=== PATIENT | male | born 1935 | race Caucasian/White ===

== ENCOUNTER 2023-06-02 06:23 | Day surgery (SDC) | payer MEDICARE, OTHER, SELFPAY ==
[2023-06-02] VITALS (15 sets, daily range): BP systolic 97–130; BP diastolic 51–80; BMI 25.1
== END 2023-06-02 12:55 | disposition home or self-care (01) ==
LOC: GI 06:23
PROVIDERS: ATTENDING PHYSICIAN Internal Medicine Critical Care Medicine
DX: R91.8 Other nonspecific abnormal finding of lung field (principal); R59.0 Localized enlarged lymph nodes; J98.4 Other disorders of lung
CPT/HCPCS: 31629; 31624; 31645; 31623; 31627; 31654; 88172; 88173; 88305; 71045; 76000; 87015; 87070; 87102; 87116; 87147; 87186; 87205; 88112; 88333; C1887

== ENCOUNTER 2023-06-13 14:45 | Outpatient (RCR) | payer MEDICARE, OTHER, SELFPAY | END 2023-06-28 10:54 | disposition home or self-care (01) | LOC: PURB 14:45 | PROVIDERS: ATTENDING PHYSICIAN Internal Medicine; FAMILY PHYSICIAN Family Medicine | DX: J44.9 Chronic obstructive pulmonary disease, unspecified (principal) | CPT/HCPCS: 94625 ==

== ENCOUNTER → 2023-07-10 07:57 | Outpatient (REF) | payer MEDICARE, OTHER, SELFPAY ==
[2023-07-10 10:00] LABS: % Basophils 0.2 % (0-2); % Eosinophils 0.2 % (0-6); % Immature Granulocytes 2.4 % (0-0.5); % Lymphocytes 54.9 % (20.5-51.1); % Monocytes 3.1 % (1.7-9.3); % Neutrophils 39.2 % (42.2-75.2); Absolute Basophils 0.1 10^3/uL (0-0.2); Absolute Eosinophils 0.1 10^3/uL (0-0.7); Absolute Immature Granulocytes 0.7 10^3/uL (0-0.05); Absolute Lymphocytes 16.8 10^3/uL (1.2-3.4); Absolute Monocytes 0.9 10^3/uL (0.1-0.6); Hematocrit 48.9 % (39.0-52.0); Hemoglobin 15.4 g/dL (13.0-18.0); Mean Corp Hgb Conc. 31.5 g/dL (33.0-37.0); Mean Corpuscular Hgb 28.3 pg (27.0-31.0); Mean Corpuscular Volume 89.9 fL (80.0-94.0); Mean Platelet Volume 10.1 fL (7.4-10.4); Nucleated Red Blood Cells % 0 % (-); Platelet Count 371 10^3/uL (130-400); Red Blood Cell Count 5.44 10^6/uL (4.70-6.10); Red Cell Dist. Width 15.4 % (11.5-14.5); White Blood Cell Count 30.5 10^3/uL (4.8-10.8)
[2023-07-10 10:19] LABS: ALT (SGPT) 46 U/L (0-50); AST (SGOT) 27 U/L (17-59); Albumin 3.7 g/dl (3.5-5.0); Alkaline Phosphatase 80 U/L (38-126); Blood Urea Nitrogen 44 mg/dl (9-20); Calcium 9.4 mg/dl (8.4-10.2); Carbon Dioxide 29 mmol/L (22-30); Chloride 108 mmol/L (98-107); Glucose 119 mg/dl (70-99); HDL Cholesterol 27 mg/dl; LDL Cholesterol, Calculated 54 mg/dl; Magnesium 2.5 mg/dl (1.6-2.3); Potassium 3.9 mmol/L (3.5-5.1); Sodium 146 mmol/L (135-145); Total Bilirubin 0.9 mg/dl (0.2-1.3); Total Cholesterol 98 mg/dl (50-199); Total Protein 5.8 g/dl (6.3-8.2); Triglyceride 85 mg/dl (10-149); Very Low Density Lipoprotein 17 mg/dl (0-30); eGFR > 60.00
[2023-07-10 10:25] LABS: NT-proBNP 5040 pg/ml
== END ==
LOC: HWLAB 07:57
PROVIDERS: ATTENDING PHYSICIAN Nurse Practitioner Adult Health; FAMILY PHYSICIAN Family Medicine; REFERRING PHYSICIAN Internal Medicine Cardiovascular Disease
DX: J15.211 Pneumonia due to Methicillin susceptible Staphylococcus aureus (principal); R05.1 Acute cough; R13.12 Dysphagia, oropharyngeal phase; E85.82 Wild-type transthyretin-related (ATTR) amyloidosis; I42.5 Other restrictive cardiomyopathy; I50.32 Chronic diastolic (congestive) heart failure; I25.10 Atherosclerotic heart disease of native coronary artery without angina pectoris; I44.2 Atrioventricular block, complete
CPT/HCPCS: 36415; 71046; 80053; 80061; 83735; 83880; 85025

== ENCOUNTER → 2023-07-11 08:02 | Outpatient (REF) | payer MEDICARE, OTHER, SELFPAY | LOC: RAD 08:02 | PROVIDERS: ATTENDING PHYSICIAN Nurse Practitioner Adult Health; FAMILY PHYSICIAN Family Medicine | DX: J15.211 Pneumonia due to Methicillin susceptible Staphylococcus aureus (principal); R05.1 Acute cough; R13.12 Dysphagia, oropharyngeal phase | CPT/HCPCS: 74230; 92611 ==

== ENCOUNTER → 2023-07-14 09:05 | Outpatient (REF) | payer MEDICARE, OTHER, SELFPAY | LOC: REG 09:05 | PROVIDERS: ATTENDING PHYSICIAN Nurse Practitioner Adult Health; FAMILY PHYSICIAN Family Medicine | DX: J15.211 Pneumonia due to Methicillin susceptible Staphylococcus aureus (principal); R05.1 Acute cough | CPT/HCPCS: 87070; 87077; 87186; 87205 ==

== ENCOUNTER → 2023-07-25 07:32 | Outpatient (REF) | payer MEDICARE, OTHER, SELFPAY ==
[2023-07-25 10:08] LABS: % Basophils 0.3 % (0-2); % Eosinophils 1.3 % (0-6); % Immature Granulocytes 1.1 % (0-0.5); % Lymphocytes 50.6 % (20.5-51.1); % Monocytes 5.1 % (1.7-9.3); % Neutrophils 41.6 % (42.2-75.2); Absolute Basophils 0.1 10^3/uL (0-0.2); Absolute Eosinophils 0.2 10^3/uL (0-0.7); Absolute Immature Granulocytes 0.2 10^3/uL (0-0.05); Absolute Lymphocytes 9.5 10^3/uL (1.2-3.4); Absolute Neutrophils 7.9 10^3/uL (1.4-6.5); Hematocrit 46.8 % (39.0-52.0); Hemoglobin 14.8 g/dL (13.0-18.0); Mean Corp Hgb Conc. 31.6 g/dL (33.0-37.0); Mean Corpuscular Hgb 28.5 pg (27.0-31.0); Mean Corpuscular Volume 90.2 fL (80.0-94.0); Mean Platelet Volume 10.9 fL (7.4-10.4); Nucleated Red Blood Cells % 0 % (-); Platelet Count 299 10^3/uL (130-400); Red Blood Cell Count 5.19 10^6/uL (4.70-6.10); Red Cell Dist. Width 15.8 % (11.5-14.5); White Blood Cell Count 18.9 10^3/uL (4.8-10.8)
[2023-07-25 10:24] LABS: ALT (SGPT) 29 U/L (0-50); AST (SGOT) 31 U/L (17-59); Albumin 3.6 g/dl (3.5-5.0); Alkaline Phosphatase 87 U/L (38-126); Blood Urea Nitrogen 31 mg/dl (9-20); Carbon Dioxide 26 mmol/L (22-30); Chloride 110 mmol/L (98-107); Glucose 98 mg/dl (70-99); Magnesium 2.3 mg/dl (1.6-2.3); Potassium 4.4 mmol/L (3.5-5.1); Sodium 140 mmol/L (135-145); Total Bilirubin 1.3 mg/dl (0.2-1.3); Total Protein 5.8 g/dl (6.3-8.2); eGFR > 60.00
[2023-07-25 10:49] LABS: NT-proBNP 2880 pg/ml
== END ==
LOC: HWLAB 07:32
PROVIDERS: ATTENDING PHYSICIAN Internal Medicine Cardiovascular Disease; FAMILY PHYSICIAN Family Medicine
DX: I48.0 Paroxysmal atrial fibrillation (principal); I50.33 Acute on chronic diastolic (congestive) heart failure; I44.2 Atrioventricular block, complete; I49.8 Other specified cardiac arrhythmias; I10 Essential (primary) hypertension
CPT/HCPCS: 36415; 80053; 83735; 83880; 85025

== ENCOUNTER → 2023-08-04 08:01 | Outpatient (REF) | payer MEDICARE, OTHER, SELFPAY | LOC: HWRAD 08:01 | PROVIDERS: ATTENDING PHYSICIAN Nurse Practitioner Adult Health; FAMILY PHYSICIAN Family Medicine | DX: J15.211 Pneumonia due to Methicillin susceptible Staphylococcus aureus (principal) | CPT/HCPCS: 71250 ==

== ENCOUNTER → 2023-08-22 12:09 | Outpatient (REF) | payer MEDICARE, OTHER, SELFPAY | LOC: HWRAD 12:09 | PROVIDERS: ATTENDING PHYSICIAN Physician Assistant; FAMILY PHYSICIAN Family Medicine | DX: J15.211 Pneumonia due to Methicillin susceptible Staphylococcus aureus (principal) | CPT/HCPCS: 71046 ==

== ENCOUNTER → 2023-09-04 08:21 | Outpatient (REF) | payer MEDICARE, OTHER, SELFPAY | LOC: HWLAB 08:21 | PROVIDERS: ATTENDING PHYSICIAN Internal Medicine; FAMILY PHYSICIAN Family Medicine | DX: J15.211 Pneumonia due to Methicillin susceptible Staphylococcus aureus (principal) | CPT/HCPCS: 87070; 87077; 87186; 87205 ==

== ENCOUNTER 2023-09-06 06:34 | Day surgery (SDC) | payer MEDICARE, OTHER, SELFPAY ==
[2023-09-06] MEDS: ELIQUIS 2.5 MG PO (09:20)
== END 2023-09-06 09:45 | disposition home or self-care (01) ==
LOC: CATH 06:34
PROVIDERS: ATTENDING PHYSICIAN Internal Medicine; FAMILY PHYSICIAN Family Medicine; OTHER PHYSICIAN Internal Medicine Cardiovascular Disease
DX: I48.91 Unspecified atrial fibrillation (principal); I48.92 Unspecified atrial flutter; I08.1 Rheumatic disorders of both mitral and tricuspid valves; I11.0 Hypertensive heart disease with heart failure; I50.42 Chronic combined systolic (congestive) and diastolic (congestive) heart failure; R06.09 Other forms of dyspnea; J44.9 Chronic obstructive pulmonary disease, unspecified; Z85.118 Personal history of other malignant neoplasm of bronchus and lung; Z87.891 Personal history of nicotine dependence; Z79.82 Long term (current) use of aspirin; Z79.01 Long term (current) use of anticoagulants
CPT/HCPCS: 93312; 93320; 93325; 92960; 93005

== ENCOUNTER → 2023-09-07 | Outpatient (REF) | payer MEDICARE, OTHER, SELFPAY | LOC: DHSLP | PROVIDERS: ATTENDING PHYSICIAN Internal Medicine; FAMILY PHYSICIAN Family Medicine | DX: G47.33 Obstructive sleep apnea (adult) (pediatric) (principal); R09.02 Hypoxemia | CPT/HCPCS: 95800 ==

== ENCOUNTER → 2023-09-22 09:01 | Outpatient (REF) | payer MEDICARE, OTHER, SELFPAY ==
[2023-09-22 10:58] LABS: % Basophils 0.3 % (0-2); % Eosinophils 2.1 % (0-6); % Immature Granulocytes 1.8 % (0-0.5); % Lymphocytes 49.7 % (20.5-51.1); % Monocytes 4.4 % (1.7-9.3); % Neutrophils 41.7 % (42.2-75.2); Absolute Eosinophils 0.3 10^3/uL (0-0.7); Absolute Immature Granulocytes 0.3 10^3/uL (0-0.05); Absolute Lymphocytes 7.2 10^3/uL (1.2-3.4); Absolute Monocytes 0.6 10^3/uL (0.1-0.6); Hematocrit 33.6 % (39.0-52.0); Hemoglobin 10.4 g/dL (13.0-18.0); Mean Corpuscular Hgb 28.6 pg (27.0-31.0); Mean Corpuscular Volume 92.3 fL (80.0-94.0); Mean Platelet Volume 10.7 fL (7.4-10.4); Nucleated Red Blood Cells % 0 % (-); Platelet Count 215 10^3/uL (130-400); Red Blood Cell Count 3.64 10^6/uL (4.70-6.10); White Blood Cell Count 14.5 10^3/uL (4.8-10.8)
[2023-09-22 11:13] LABS: ALT (SGPT) 14 U/L (0-50); AST (SGOT) 30 U/L (17-59); Albumin 3.7 g/dl (3.5-5.0); Alkaline Phosphatase 67 U/L (38-126); Blood Urea Nitrogen 34 mg/dl (9-20); Calcium 9.6 mg/dl (8.4-10.2); Carbon Dioxide 27 mmol/L (22-30); Chloride 106 mmol/L (98-107); Glucose 124 mg/dl (70-99); Magnesium 2.1 mg/dl (1.6-2.3); Potassium 3.9 mmol/L (3.5-5.1); Sodium 142 mmol/L (135-145); Total Bilirubin 1.8 mg/dl (0.2-1.3); Total Protein 5.6 g/dl (6.3-8.2); eGFR > 60.00
[2023-09-22 11:18] LABS: NT-proBNP 1970 pg/ml
== END ==
LOC: HWLAB 09:01
PROVIDERS: ATTENDING PHYSICIAN Internal Medicine Cardiovascular Disease; FAMILY PHYSICIAN Family Medicine
DX: I48.92 Unspecified atrial flutter (principal); I48.0 Paroxysmal atrial fibrillation; I25.10 Atherosclerotic heart disease of native coronary artery without angina pectoris; Z98.61 Coronary angioplasty status; I10 Essential (primary) hypertension
CPT/HCPCS: 36415; 80053; 83735; 83880; 85025

== ENCOUNTER 2023-09-24 04:27 | Inpatient (IN) | payer MEDICARE, OTHER, SELFPAY ==
[2023-09-23 23:42] VITALS: BP 115/65; BMI 24.6
[2023-09-23 23:47] VITALS: BP 115/65
--- NOTE | 2023-09-23 23:58 | ED.GENMED ---
History of Present Illness
General
Chief Complaint: Musculo-Skeletal Complaint
Source: patient
Exam Limitations: none
Time Seen by Provider: 09/23/23 23:44
Travel History
Have you had any contact with someone who has COVID-19?: No
Do you have any symptoms of coronavirus? Fever > 100 degrees, chills, cough, shortness of breath, sore throat, loss of taste or smell, muscle aches, or headache?: No
History of Present Illness
History of Present Illness:
This is a 87 year old male that is brought in by ambulance with c/o right hip pain. Patient states that he fell on Monday 2 weeks ago. States that he went to 2 days after the fall and then on Monday that week he went to the PCP. States that he
was told to go to [facility] which he did. States that he was told that they were no sure if his hip was broken. Patient tonight was unable to get Out of his chair. States that he has been trying to walk with pain. States that he is on Eliquis and he
does have some SOB and dizziness. Denies any fever, chills, chest pain, abd pain, nausea, vomiting, diarrhea, headahe, urinary burning.
Past History
Past History
ED Past Medical History: Arrthythmia (afib), CAD, Cancer (lung, Skin Cancer, CLL, ), COPD, HTN, Hypercholesterolemia and Other (BPH, Colitis, GI bleeding. Back and neck pain, PNA, Diverticulitis, IBS, Renal calulus, )
ED Past Surgical History: Cardiac (Stent, ablation 01/29/19 at [facility], pacemaker), Cholecystectomy, Orthopedic (Trigger finger, Right carpal tunnel, ) and Other (!/3 of R lung removed for CA, Cataracts. Right hernia repair, )
Social History
Tobacco: Former smoker
Alcohol: Occasional
Personal:
Living: with family
Family History
Family History: Other (Noncontributory)
Review of Systems
Review of Systems
All Other Systems: ROS reviewed and negative except as documented in HPI and ROS
Constitutional: Reports no symptoms; Denies fever or chills
EENT: Reports no symptoms
Respiratory: Reports trouble breathing; Denies cough
Cardiac: Reports no symptoms; Denies chest pain
ABD/GI: Denies abdominal pain, nausea, vomiting or diarrhea
: Reports no symptoms; Denies dysuria, frequency or urgency
Musculoskeletal: Reports joint pain (Right hip pain)
Skin: Reports no symptoms
Neurological: Reports dizzy; Denies headache
Psychiatric: Reports no symptoms
Phy Exam
General Physical Exam
General Presentation: no apparent distress
General age: appears stated age
General Skin: warm and dry
General Habitus: elderly
General Mental: alert
General Hydration: appears well hydrated
ENT Exam
ENT Exam: TM's normal, pharynx normal and neck supple
Eye Exam
Eye Exam: EOMI
Cardiovascular Exam
Cardiovascular Exam: regular rate/rhythm and normal peripheral pulses
Pulmonary Exam
Pulmonary Exam: lungs clear, no respiratory distress, no rales, chest non tender, no crackles, no rhonchi, no wheezing and no cough
Gastrointestinal Exam
Gastrointestinal Exam: normal bowel sounds, non tender, soft, no organomegaly, no pulsatile mass and non distended
Musculoskeletal Exam
Musculoskeletal Exam: edema (+2 pitting edema of the feet and lower legs. Limited ROM right leg due to pain. Right hip tenderness with palpation)
Skin Exam
Skin Exam: normal color, warm/dry and other (Contusion of right chest from sternum to right lateral chest. Down the right side hip into buttocks and scrotum, down the right let and foot. )
Psychiatric Exam
Psychiatric Exam: normal mood/affect
Course
Orders/Labs/Results
Orders:
Orders
09/23/23 23:57
Complete Blood Count/With Diff Urgent
Comprehensive Metabolic Panel Urgent
09/24/23 00:00
CT Lower Ext W/o Iv Cont Rt Urgent
Comment: Fall two weeks ago
Reason For Exam: Right hip and pelvic pain
Abnormal Lab Results
09/24/23
00:00
WBC 16.4 H 10^3/uL
(4.8-10.8)
RBC 3.36 L 10^6/uL
(4.70-6.10)
Hgb 9.8 L g/dL
(13.0-18.0)
Hct 29.8 L %
(39.0-52.0)
MCHC 32.9 L g/dL
(33.0-37.0)
RDW 17.9 H %
(11.5-14.5)
Abs Immat Gran (auto) 0.3 H 10^3/uL
(0-0.05)
Absolute Neuts (auto) 7.3 H 10^3/uL
(1.4-6.5)
Absolute Lymphs (auto) 7.7 H 10^3/uL
(1.2-3.4)
Absolute Monos (auto) 0.8 H 10^3/uL
(0.1-0.6)
Immature Gran % 1.5 H %
(0-0.5)
BUN 32 H mg/dl
(9-20)
Glucose 113 H mg/dl
(70-99)
Total Bilirubin 1.7 H mg/dl
(0.2-1.3)
Total Protein 5.5 L g/dl
(6.3-8.2)
09/24/23 00:00
09/24/23 00:00
Leukocytosis (chronic due to CLL), H/H low when compared with prior labs,, Dehydration. Glucose nonfasting. Total abigail slightly elevated. Total protein low.
Vital Signs
Initial and Last Documented VS:
Initial Vital Signs
Temp Pulse Resp BP Pulse Ox
97.6 F 63 18 115/65 95
09/23/23 23:42 09/23/23 23:42 09/23/23 23:42 09/23/23 23:42 09/23/23 23:42
Last Documented Vital Signs
Temp Pulse Resp BP Pulse Ox
97.6 F 63 18 115/65 95
09/23/23 23:42 09/23/23 23:42 09/23/23 23:42 09/23/23 23:42 09/23/23 23:42
MDM/Problems Addressed
Differential Diagnosis Includes:
Right hip or Pelvic fracture.
MDM/Problems Addressed:
This is a 87 year old male that comes in by ambulance with c/o of not being able to get out of his chair tonight. States that he fell about 10 days ago and he has had pain in the right hip. States that he is on Eliquis and has had bruising of the
chest down the right sided to his foot.
Will get labs and CT hip and pelvis.
Back into see patient. Explained that his CT is negative for any fracture but there are large hematomas in the gluteal muscle and the hip. This is causing his pain. Explained that they may discuss with the concrete precast moulder about holding his Eliquis and
that sometimes hematomas are drained. This will be decided by the Doctors while in the hospital. Will admit patient. Hospitalist notified.
Chronic conditions affecting care: CAD and COPD
*Radiology
Radiology exam reviewed: radiology read reviewed (CT [facility]-Moderate subcutaneous hematoma overlying the right greater trochanter measuring 9.3cm in length. Large intramuscular hematoma in the right gluteal muscles measuring 12.4cm in length.
There are enlarged solid appearing right inguinal, External iliac nodes. This raises the question of a ) and all reviewed NAD by ED Provider (CT cont- lymphoproliferative disorder. The alignment is normal. Mild right hip joint osteoarthritis. There
is no acute fracture. Partial visualization of L4, L5 laminectomy. Moderate diverticulosis of the visualized colon. )
*Pulse Oximetry
Patient hypoxic: no
*EKG
Interpreted by ED Provider?: NA
Rate: EKG- N/A
*Flat Knitter Interpretation
Rate: Flat Knitter- N/A
*Critical Care Note
Total Time (30-74mins, 75-104mins- exclusive of procedures): Not Applicable
ED Attending Note
-
Portions of this chart may have been created with voice recognition software.� Occasional wrong word or��sound alike� substitutions may have occurred due to the inherent limitations of voice recognition software.
Discharge Plan
Departure
Patient Disposition: Admit
Date of Disposition: 09/24/23
Time of Disposition: 01:57
Admit to: Med/Surg
Presentation/result/management discussed w/ accepting MD/DO: Hospitalist
Patient with high blood pressure during this ER visit?: No
Condition: Good
Covid-19: Not Applicable
Discharge Problem:
Ambulatory dysfunction, Hematoma right hip and gluteal muscle
Prescriptions:
No Action
tamsulosin 0.4 MG capsule
0.4 mg PO BID
famotidine 40 MG tablet
40 mg PO HS
zolpidem 5 MG tablet
5 mg PO HSPRN PRN (Reason: SLEEP)
Patient Comments:
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
furosemide 20 MG tablet
20 mg PO .2X A WK NEEDED PRN (Reason: edema)
finasteride 5 MG tablet
5 mg PO DAILY
Vyndamax 61 MG capsule
61 mg PO DAILY
multivitamin Tablet
1 tab PO DAILY
albuterol sulfate 2.5 mg /3 mL (0.083 %) Solution For Nebulization
2.5 mg INHALATION Q4H PRN (Reason: SOB)
fluticasone propion-salmeterol [Wixela Inhub] 500-50 mcg/dose Blister With Device
1 inh INHALATION Q12H
Eliquis 2.5 mg Tablet
2.5 mg PO BID
Probiotic 3 billion cell Capsule
3,000 mmu cells PO DAILY
sotalol 80 mg Tablet
40 mg PO BID
fluorouracil 5 % Cream
1 applic TOPICAL DAILY PRN (Reason: skin care)
ipratropium bromide 21 mcg (0.03 %) [place],Non-Aerosol
2 spray INTRANASAL TID
guaifenesin [Mucinex] 600 mg Tablet Extended Release 12hr
600 mg PO BID
Nebulizer Albuter
0.083 ea PO BID
Referrals:
Ochoa Serrano DO [Family Provider] -
Interventions
Interventions:
*Risk Screen - Suicide Last Done: 09/23/23 23:42
*General Assessment Last Done: 09/23/23 23:42
*Neglect/Abuse Screening Last Done: 09/23/23 23:42
ED- Fall Risk Assessment Last Done: 09/23/23 23:42
*ED COVID-19 Vaccine History Last Done: 09/23/23 23:42
ED-Musculoskeletal Assessment Last Done: 09/24/23 00:42
Discharge Date and Time
Print Language: UKRAINIAN
[2023-09-24] VITALS (12 sets, daily range): BP systolic 85–109; BP diastolic 45–77; PULSE 65–112; O2SAT 96; BMI 24.3
[2023-09-24 00:05] LABS: % Basophils 0.2 % (0-2); % Immature Granulocytes 1.5 % (0-0.5); % Lymphocytes 46.6 % (20.5-51.1); % Neutrophils 44.7 % (42.2-75.2); Absolute Eosinophils 0.3 10^3/uL (0-0.7); Absolute Immature Granulocytes 0.3 10^3/uL (0-0.05); Absolute Lymphocytes 7.7 10^3/uL (1.2-3.4); Absolute Monocytes 0.8 10^3/uL (0.1-0.6); Absolute Neutrophils 7.3 10^3/uL (1.4-6.5); Hematocrit 29.8 % (39.0-52.0); Hemoglobin 9.8 g/dL (13.0-18.0); Mean Corp Hgb Conc. 32.9 g/dL (33.0-37.0); Mean Corpuscular Hgb 29.2 pg (27.0-31.0); Mean Corpuscular Volume 88.7 fL (80.0-94.0); Mean Platelet Volume 10.3 fL (7.4-10.4); Nucleated Red Blood Cells % 0.1 % (-); Platelet Count 212 10^3/uL (130-400); Red Blood Cell Count 3.36 10^6/uL (4.70-6.10); Red Cell Dist. Width 17.9 % (11.5-14.5); White Blood Cell Count 16.4 10^3/uL (4.8-10.8)
[2023-09-24 00:21] LABS: ALT (SGPT) 14 U/L (0-50); AST (SGOT) 26 U/L (17-59); Albumin 3.6 g/dl (3.5-5.0); Alkaline Phosphatase 69 U/L (38-126); Blood Urea Nitrogen 32 mg/dl (9-20); Calcium 9.1 mg/dl (8.4-10.2); Carbon Dioxide 26 mmol/L (22-30); Chloride 107 mmol/L (98-107); Estimated Creatinine Clearance 55 ml/min; Glucose 113 mg/dl (70-99); Sodium 139 mmol/L (135-145); Total Bilirubin 1.7 mg/dl (0.2-1.3); Total Protein 5.5 g/dl (6.3-8.2); eGFR > 60.00
--- NOTE | 2023-09-24 01:07 | EDRN ---
Updated patient and family on plan for patient to stay regardless of CT result since he is having an issue ambulating, patient and family understand and agree with plan, however informed them once CT report back JOSE Evans will come in and speak
with patient, patient provided with water and medication list updated.
[2023-09-24] MEDS: MORPHINE SULFATE 4 MG IV (02:15)
--- NOTE | 2023-09-24 02:54 | HPS.HSE ---
Family Physician
-
Family Physician: Ochoa Serrano
Chief Complaint
-
RLE Pain / Swelling, Ambulatory Dysfunction
History of Present Illness
Patient is an 87y M with PMH significant for hypertension, CLL, paroxysmal A-Fib and cardiac amyloidosis who presents to ED complaining of progressive RLE pain, swelling and bruising. Patient states that he initially suffered a fall on 09/12/23.
He was running to try and catch a cart that had escaped him when he fell, landing on his R hip. He was able to get up only with assistance. He was seen at Urgent Care that day and has been seen by Joyce Quiroz thereafter. X-rays at both failed
to show any fracture. Patient had significant expected bruising and swelling and discomfort following the fall as he is maintained on chronic anticoagulation with Eliquis. Unfortunately, his symptoms have continued to increase despite significant
time since his injury. He had had worsening pain and swelling with ecchymoses now extending into the R foot. He has had increasing difficulty walking due to pain and this evening was completely unable to get up from a seated position.
He presented to the ED for further evaluation.
Patient notes that he has been maintained on Eliquis 2.5mg BID 'for my heart' for many years. About 2 weeks ago (09/06/23) he underwent DC cardioversion for A-Fib. Following that procedure he was advised to increase his Eliquis to 5mg BID.
He has also recently been on antibiotics for a chronic / unspecified lung infection. He cannot recall the name of the abx, but he completed a 14 day course yesterday.
Medical History
Past Medical History
Past Medical History: Reports Other
Additional Past Medical History:
Cardiac Amyloidosis
Paroxysmal Atrial Fibrillation
ASCVD
Chronic HFpEF
Hypertension
CLL
Prostate Cancer
Lung Cancer
BPH
Past Surgical History: Reports Other
Additional Past Surgical History:
Right Upper Lobectomy
Prostatectomy
PTCA with Stent
PVI Ablation
DCCV
PPM Placement
Hernia Repair (x 2)
Cholecystectomy
Social History
Tobacco: Former Smoker (Quit smoking 30 years ago. Approx 20 pack years total use.)
Alcohol: Occasional
Drug: None
Family History
Family History: Not pertinent
Allergies / Home Medications
Allergies reflects when Allergies were last updated in [facility].
Home Medications with original date entered in [facility]
Allergy/Medication List:
Allergies
Allergy/AdvReac Type Severity Reaction Status Date / Time
No Known Allergies Allergy Verified 09/23/23 23:42
Home Medications
tamsulosin 0.4 mg capsule 0.4 mg PO BID Urinary issue 05/31/12
famotidine 40 mg tablet 40 mg PO HS Gastrointestinal issue 04/15/21
finasteride 5 mg tablet 5 mg PO DAILY Urinary issue 04/15/21
furosemide 20 mg tablet 20 mg PO .2X A WK NEEDED PRN edema 04/15/21
tafamidis 61 mg capsule (Vyndamax) 61 mg PO DAILY Heart disease/condition 04/15/21
zolpidem 5 mg tablet 5 mg PO HSPRN PRN SLEEP 04/15/21
multivitamin 1 tab PO DAILY 07/13/22
albuterol sulfate 2.5 mg/3 mL (0.083 %) solution for nebulization 2.5 mg inhalation Q4H PRN SOB 05/16/23
apixaban 2.5 mg tablet (Eliquis) 5 mg PO BID 05/16/23
fluticasone 500 mcg-salmeterol 50 mcg/dose blistr powdr for inhalation (Wixela Inhub) 1 inh inhalation Q12H 05/16/23
lactobacillus combination no.4 3 billion cell capsule (Probiotic) 3,000 mmu cells PO DAILY 05/16/23
Nebulizer Albuter 0.083 ea PO BID 09/06/23
fluorouracil 5 % topical cream 1 applic topical DAILY PRN skin care 09/06/23
guaifenesin 600 mg tablet, extended release 12 hr (Mucinex) 600 mg PO BID 09/06/23
ipratropium bromide 21 mcg (0.03 %) nasal spray 2 spray intranasal TID 09/06/23
sotalol 80 mg tablet 40 mg PO BID 09/06/23
Review of Systems
-
History Source: Patient
A 12 point ROS was completed and negative except as noted: Yes
Constitutional: Denies Fever, Fatigue or Chills
Respiratory: Reports Cough (chronic / ongoing issue for which he has been followed by Pulmonary); Denies Trouble Breathing
Cardiac: Denies Chest Pain or Palpitations
Abdomen/GI: Denies Abdominal Pain, Nausea, Vomiting or Diarrhea
: Denies Dysuria, Frequency or Flank Pain
Musculoskeletal: Reports Joint Pain, Joint Swelling, Muscle Pain and Edema
Neurological: Denies Dizzy or Headache
Hematologic/Lymphatic: Reports Bruising
Psych: Denies Depression or Anxiety
Physical Exam
Vital Signs
Vital Signs
Temp Pulse Resp BP Pulse Ox
97.6 F 63 18 115/65 95
09/23/23 23:42 09/23/23 23:42 09/23/23 23:42 09/23/23 23:42 09/23/23 23:42
Physical Exam
General: Other (87y M in mild distress due to pain.)
HEENT: Moist mucous membranes and PERRLA
Respiratory: Other (Few scattered rales - otherwise clear.)
Cardiac: S1/S2 and Regular Rhythm; No Murmur
GI: Soft, Non Tender, Non Distended and Normal Bowel Sounds
Musculoskeletal: Other (Firm / tender hematomas over the R buttocks and the R greater troch areas. Significant tenderness of the foot and calf with 3+ pitting edema from the hip to the toes.)
Skin: Other (Ecchymosis over the low back / right buttocks and hip area extending into the RLE circumferentially to the toes. Ecchymoses over the R lateral ribs as well.)
Neuro: AO x 3
Psych: No Anxious or Depressed
Laboratory Results
-
09/24/23 00:00
09/24/23 00:00
Laboratory Results
Total Bilirubin 1.7 mg/dl (0.2-1.3) H 09/24/23 00:00
AST 26 U/L (17-59) 09/24/23 00:00
ALT 14 U/L (0-50) 09/24/23 00:00
Alkaline Phosphatase 69 U/L (38-126) 09/24/23 00:00
Impression/Plan
-
A/P: Patient is an 87y M with PMH significant for PA-Fib, cardiac amyloid, CLL and ASCVD who presents to ED complaining of worsening pain and swelling of the RLE s/p fall 12 days ago.
Right Gluteal Hematoma
Right Greater Trochanter Hematoma
RLE Edema / Ecchymosis
Ambulatory Dysfunction secondary to the above
Fall (09/12/23)
- Admit for further evaluation and treatment.
- Given that his symptoms continue to progress despite fall / trauma occurring 12 days ago - will hold Eliquis for now until improvement is appreciated.
- Elevated extremity.
- Vascular checks given significant degree of swelling and discomfort in the R lower leg / foot.
- Vascular Surgery evaluation for any additional recommendations.
- PT / OT evaluations.
- CT done today shows no evidence of bony involvement / fracture from recent fall.
- ? need for repeat study with benefit of IV contrast to rule out any active / ongoing bleeding.
- Supportive care / pain control.
Acute Blood Loss Anemia secondary to the above
- Hgb today is 9.8 compared to baseline of 14-15.
- Clearly secondary to blood loss / hematoma as noted above.
- Holding Eliquis as stated.
- Follow H&H for improvement.
- Transfusion if needed. Consider iron replacement.
Cardiac Amyloidosis
Paroxysmal Atrial Fibrillation
Chronic HFpEF
ASCVD
- Stable. Continue current CV med regimen with the exception of Eliquis for now.
- s/p recent DC cardioversion (09/12/23) for A-Fib.
- Take Lasix only PRN for edema - current edema clearly due to injury / hematoma and not volume overload.
- Follow I/Os, daily weights, etc.
Chronic Cough
History of Lung Cancer
Atypical Pulmonary Infection (?)
- Followed by local Pulmonary group.
- Just completed 14 day course of abx (? which) and is scheduled for further evaluation with ID in the coming weeks.
- Follow for any fever, dyspnea, worsening symptoms, etc during his acute stay.
- Otherwise, follow-up as an outpatient as already scheduled.
CLL
- Stable. Chronic leukocytosis is not significantly changed.
BPH
- Stable. Continue tamsulosin / finasteride.
- Bladder scan protocol.
DVT Prophylaxis: None acutely given LE injury / active bleeding.
Code Status: Full
[2023-09-24 04:07] LABS: Lactic Acid 0.8 mmol/L (0.7-2.0)
[2023-09-24] MEDS: DILAUDID 0.5 MG IV ×2 (04:48→15:23)
[2023-09-24] MEDS: VENTOLIN NEBULES 2.5 MG INH ×2 (07:16→19:58)
[2023-09-24 07:48] LABS: Hematocrit 28.8 % (39.0-52.0); Mean Corp Hgb Conc. 31.3 g/dL (33.0-37.0); Mean Corpuscular Hgb 28.4 pg (27.0-31.0); Mean Corpuscular Volume 90.9 fL (80.0-94.0); Mean Platelet Volume 10.2 fL (7.4-10.4); Platelet Count 183 10^3/uL (130-400); Red Blood Cell Count 3.17 10^6/uL (4.70-6.10); Red Cell Dist. Width 17.8 % (11.5-14.5); White Blood Cell Count 13.5 10^3/uL (4.8-10.8)
[2023-09-24 08:12] LABS: Blood Urea Nitrogen 30 mg/dl (9-20); Calcium 8.9 mg/dl (8.4-10.2); Carbon Dioxide 28 mmol/L (22-30); Chloride 106 mmol/L (98-107); Estimated Creatinine Clearance 62 ml/min; Glucose 93 mg/dl (70-99); Sodium 138 mmol/L (135-145); eGFR > 60.00
[2023-09-24 08:19] LABS: Iron 53 ug/dl (49-181)
[2023-09-24 08:31] LABS: Percent Saturation 20 % (20-50); Total Iron Binding Capacity 264 ug/dl (261-462)
[2023-09-24] MEDS: BETAPACE 40 MG PO ×2 (08:34→20:45)
[2023-09-24] MEDS: TYLENOL 1000 MG PO ×3 (08:35→21:25)
[2023-09-24] MEDS: FLOMAX 0.400000000000000022 MG PO ×2 (08:35→20:47)
[2023-09-24] MEDS: PROSCAR 5 MG PO (08:35)
[2023-09-24] MEDS: MUCINEX 600 MG PO ×2 (08:36→20:47)
[2023-09-24] MEDS: ELIQUIS 5 MG PO ×2 (08:37→20:47)
--- NOTE | 2023-09-24 08:56 | W.PN.HOSP.TC ---
Addendum entered and electronically signed by Tam Oakley MD 09/24/23 16:51:
Addendum
Discussed with orthopedic doctor on-call Dr. Hayden. Reviewed imaging studies. Would rather not do evacuation unless very uncomfortable. He will see the patient in consult.
Appreciate orthopedic help
End
Addendum entered and electronically signed by Tam Oakley MD 09/24/23 15:32:
Addendum
d/w vascular. No need to repeat images unless hemodynamic instability or significant drop in HGB.
Pt is having less pain now.
Will ask Ortho to look at the films.
End
Original Note:
Today's Communication/Plan
-
.
Assessment / Plan
Assessment / Plan
Physical Exam
General: Other (87y M in mild distress due to pain.)
HEENT: Moist mucous membranes and PERRLA
Respiratory: Other (Few scattered rales - otherwise clear.)
Cardiac: S1/S2 and Regular Rhythm; No Murmur
GI: Soft, Non Tender, Non Distended and Normal Bowel Sounds
Musculoskeletal: Other (Firm / less tender hematomas over the R buttocks and the R greater troch areas. Less tenderness of the foot and calf with 3+ pitting edema from the hip to the toes.)
Skin: Other (Ecchymosis over the low back / right buttocks and hip area extending into the RLE circumferentially to the toes. Ecchymoses over the R lateral ribs as well.)
Neuro: AO x 3, he followed commands.
Psych: No Anxious or Depressed
Patient is an 87y M with PMH significant for PA-Fib, cardiac amyloid, CLL and ASCVD who presents to ED complaining of worsening pain and swelling of the RLE s/p fall 12 days ago.
Right Gluteal Hematoma/ Right Greater Trochanter Hematoma/ RLE Edema / Ecchymosis
Ambulatory Dysfunction secondary to the above
Fall (09/12/23)
- CT done today shows no evidence of bony involvement / fracture from recent fall.
c/w oral Tylenol ATC
and PRN pain medicine
Resume Eliquis due to recent Cardioversion. If drop in hemoglobin, will give blood and monitor.
Acute Blood Loss Anemia secondary to the above
- Hgb today is 9.0 from 9.8
No orthostatic hypotension
Ordered Telemetry monitoring
Will keep monitoring h&H and transfuse as needed
Blood consent is signed.
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
# History of paroxysmal Atrial Fibrillation/atrial flutter
He followed with visitor services assistant of [facility] ( Dr Rice) who is retiring, patient is going to follow-up with our local group.
. Continue current CV med regimen
- s/p recent DC cardioversion (09/12/23) for A-Fib.
- Take Lasix only PRN for edema - current edema clearly due to injury / hematoma and not volume overload.
- Appreciate cardiology input
# He is on scheduled dose of Lasix 20 mg 2- 3 times a week
# History of GI bleeding
At 1 point he was on low-dose Eliquis due to GI bleed in the past but the dose increased after cardioversion
# Chronic hypotension. He is off blood pressure medications. Continue with sotalol
# History of complete heart block. Status post dual-chamber pacemaker.
Chronic Cough
History of Lung Cancer
Atypical Pulmonary Infection, for follow up in OP.
- Followed by local Pulmonary group.
- Just completed 14 day course of abx and is scheduled for further evaluation with ID in the coming weeks.
- No hypoxia.
-, follow-up as an outpatient as already scheduled.
CLL
- Stable. Chronic leukocytosis is not significantly changed.
BPH
- Stable. Continue tamsulosin / finasteride.
- Bladder scan protocol.
DVT Prophylaxis: None acutely given LE injury / active bleeding.
Code Status: Full
Total time spent to see the patient, examine the patient on the floor, review data and lab results, discuss treatment plan with patient, senior biostatistician/group leader, and nursing staff around 55 minutes
Anticipated Discharge: > 48 hours
Subjective/Interval History
-
Date of Service: September 24, 2023
He feels better
less pain in his leg
Objective Data
-
Labs:
Laboratory Results
09/24/23 09/24/23 09/24/23
00:00 07:20 12:00
WBC 16.4 H 13.5 H
Hgb 9.8 L 9.0 L Pending
Hct 29.8 L 28.8 L Pending
Plt Count 212 183
Sodium 139 138
Potassium 4.0 4.0
Chloride 107 106
Carbon Dioxide 26 28
BUN 32 H 30 H
Creatinine 0.9 0.8
Glucose 113 H 93
Calcium 9.1 8.9
Total Bilirubin 1.7 H
AST 26
ALT 14
Alkaline Phosphatase 69
09/24/23
20:00
WBC
Hgb Pending
Hct Pending
Plt Count
Sodium
Potassium
Chloride
Carbon Dioxide
BUN
Creatinine
Glucose
Calcium
Total Bilirubin
AST
ALT
Alkaline Phosphatase
Vital Signs:
Vital Signs
Temp Pulse Resp BP Pulse Ox
97.9 F 65 16 101/59 97
09/24/23 04:33 09/24/23 08:34 09/24/23 07:20 09/24/23 08:34 09/24/23 07:20
I&O
09/23/23 09/24/23 09/25/23
06:59 06:59 06:59
Intake Total 240 / 240
Balance 240 / 240
[2023-09-24] MEDS: ULTRAM 50 MG PO (09:31)
--- NOTE | 2023-09-24 09:55 | W.PN.VS ---
Today's Communication / Plan
-
- would check CTA to rule out any continued active bleed
- consult ortho to eval for possible need to evauate hematoma
- does not appear to have any acute vascular issue
- wrap leg with daina to help with edema
Assessment/Plan
-
hematoma s/p fall
was on blood thinners
non con ct with hematoma
- would check CTA to rule out any continued active bleed
- consult ortho to eval for possible need to evauate hematoma
- does not appear to have any acute vascular issue
- wrap leg with daina to help with edema
Subjective Data
-
Date of Service: September 24, 2023
Asked to eval patient for gluteal hematoma
fell, on blood thinners
pain in right buttock
Objective Data
-
Vital Signs
Temp Pulse Resp BP Pulse Ox
97.6 F 65 18 101/59 97
09/24/23 07:30 09/24/23 08:34 09/24/23 07:30 09/24/23 08:34 09/24/23 07:30
Intake and Output
09/23/23 09/24/23 09/25/23
06:59 06:59 06:59
Intake Total 240 / 240
Balance 240 / 240
Intake:
Oral fluids 240 / 240
Lab Results
09/24/23 07:20
Calcium 8.9 mg/dl (8.4-10.2) 09/24/23 07:20
Total Bilirubin 1.7 mg/dl (0.2-1.3) H 09/24/23 00:00
AST 26 U/L (17-59) 09/24/23 00:00
ALT 14 U/L (0-50) 09/24/23 00:00
Alkaline Phosphatase 69 U/L (38-126) 09/24/23 00:00
Total Protein 5.5 g/dl (6.3-8.2) L 09/24/23 00:00
Albumin 3.6 g/dl (3.5-5.0) 09/24/23 00:00
Physical Exam
-
rrr
ctab
nt,nd,soft
fullness and tenderness to right buttock
2+ edema bilat
ecchymosis to right leg
--- NOTE | 2023-09-24 11:50 | CON.CAR ---
Consultation
Consultation Request
Date/Time Consultation Requested: September 24, 2023
Date/Time Consultation Performed: September 24, 2023
Requesting Provider: Hospitalist
Performing Provider: Peewee
Reason for Consultation: Fall hematoma on anticoagulation
Medical History
-
Chief Complaint: Fall and bruising
History of Present Illness:
87-year-old male with past medical history of hypertension, CLL, paroxysmal A-fib and recent cardioversion September 06, 2023 on Eliquis, cardiac amyloid, who sustained a fall when trying to run and catch a grocery cart. He tells me that he was at [employer]
and trying to put groceries into a grocery cart. The cart started to get away from him and he ran to try and catch up. Unfortunately, he then fell and landed on his right hip. He has had ongoing bruising diffusely from his foot to his right hip.
He has had increased difficulty with walking because of the pain. He presented to the emergency room for further evaluation.
Past Medical History
Past Medical History: Other (Cardiac Amyloidosis Paroxysmal Atrial Fibrillation ASCVD Chronic HFpEF Hypertension CLL Prostate Cancer Lung Cancer BPH)
Past Surgical History: Other (Right Upper Lobectomy Prostatectomy PTCA with Stent PVI Ablation DCCV PPM Placement Hernia Repair (x 2) Cholecystectomy)
Social History
Tobacco: Former Smoker
Alcohol: Occasional
Drug: None
Family History
Family History: Reviewed & Not Pertinent
Allergies / Home Medications
Allergy/AdvReac Type Severity Reaction Status Date / Time
No Known Allergies Allergy Verified 09/23/23 23:42
�Medication �Instructions �Recorded �Confirmed �Type
tamsulosin 0.4 mg capsule 0.4 mg PO BID Urinary issue 05/31/12 09/24/23 History
famotidine 40 mg tablet 40 mg PO HS Gastrointestinal issue 04/15/21 09/24/23 History
finasteride 5 mg tablet 5 mg PO DAILY Urinary issue 04/15/21 09/24/23 History
furosemide 20 mg tablet 20 mg PO .2X A WK NEEDED PRN 04/15/21 09/24/23 History
edema
tafamidis 61 mg capsule (Vyndamax) 61 mg PO DAILY Heart 04/15/21 09/24/23 History
disease/condition
zolpidem 5 mg tablet 5 mg PO HSPRN PRN SLEEP 04/15/21 09/24/23 History
multivitamin 1 tab PO DAILY 07/13/22 09/24/23 History
albuterol sulfate 2.5 mg/3 mL 2.5 mg inhalation Q4H PRN SOB 05/16/23 09/24/23 History
(0.083 %) solution for nebulization
apixaban 2.5 mg tablet (Eliquis) 5 mg PO BID 05/16/23 09/24/23 History
fluticasone 500 mcg-salmeterol 50 1 inh inhalation Q12H 05/16/23 09/24/23 History
mcg/dose blistr powdr for
inhalation (Wixela Inhub)
lactobacillus combination no.4 3 3,000 mmu cells PO DAILY 05/16/23 09/24/23 History
billion cell capsule (Probiotic)
Nebulizer Albuter 0.083 ea PO BID 09/06/23 09/24/23 History
fluorouracil 5 % topical cream 1 applic topical DAILY PRN skin 09/06/23 09/24/23 History
care
guaifenesin 600 mg tablet, 600 mg PO BID 09/06/23 09/24/23 History
extended release 12 hr (Mucinex)
ipratropium bromide 21 mcg (0.03 2 spray intranasal TID 09/06/23 09/24/23 History
%) nasal spray
sotalol 80 mg tablet 40 mg PO BID 09/06/23 09/24/23 History
Review of Systems
-
All other systems: Negative unless noted
Physical Exam
Vital Signs
Temp Pulse Resp BP Pulse Ox
97.6 F 65 18 101/59 97
09/24/23 07:30 09/24/23 08:34 09/24/23 07:30 09/24/23 08:34 09/24/23 07:30
Lab Results
09/24/23 07:20
Physical Exam
General: Well Developed, Well Nourished and No Apparent Distress
HEENT: Normocephalic
Respiratory: Clear and Non Labored Respirations
Cardiac: Regular Rhythm
GI: Soft
Musculoskeletal: No Clubbing, No Cyanosis and No Edema
Skin: Warm, Dry and Other (Large ecchymosis from right hip down to foot)
Neuro: AO x 3
Psych: Calm
Impression / Plan
-
87y M with PMH significant for hypertension, CLL, paroxysmal A-Fib and cardiac amyloidosis who presents to ED complaining of progressive RLE pain, swelling and bruising. Patient states that he initially suffered a fall on 09/12/23. We have been
consulted because of recent cardioversion and Eliquis.
Paroxysmal AF status post mid first cardioversion
Recommend trending CBC; I did discuss with him that given his recent cardioversion he is still within the 30-day window that he is at increased risk of stroke. However, given his significant ecchymosis and hematoma if he were need to hold his
Eliquis because of worsening likely blood loss anemia that this would put him at a slightly increased risk of stroke. He is understanding of this.
-Hold Eliquis if ongoing worsening likely blood loss anemia
-Otherwise continue Eliquis
-Defer to vascular and orthopedic surgery if hematoma needs to be evacuated, if needed then Eliquis would need to be held
-Continue sotalol
Data Reviewed
-
EKG: Tracing Personally Visualized and interpreted (sr)
Medical Tests (Nuc Med, Echo etc): Report Reviewed by me
Labs: Labs Reviewed by me
[2023-09-24 12:33] LABS: Hematocrit 28.9 % (39.0-52.0); Hemoglobin 9.2 g/dL (13.0-18.0)
--- NOTE | 2023-09-24 14:26 | CM ---
Met with pt, his and daughter at bedside
Pt lives with his in independent living at [facility]
Independent, no assist with ADL's at baseline
DME - none
SNF/HH - denies past
Has ride at d/c
PCP - Dr Maxine Serrano
Pharm - [facility]
Pt seen by PT/OT - recommending SNF
Prefers [facility] - referral sent in [facility]
Plan - anticipate transfer to the [facility] when medically stable
[2023-09-24] MEDS: TYLENOL PO (15:21)
--- NOTE | 2023-09-24 15:54 | PTCARENOTE ---
Pt is alert and oriented x3. Complains of pain on the R side of his body due to lots of ecchymosis d/t a fall. Pain medicine administered per MAR with releif. Neurovascular checks all intact. Pt's appetite has been good. Pt is an assist x1 OOB with
the walker. VSS. Family is at the bedside. Call edwards is within reach.
[2023-09-24 19:57] LABS: Hematocrit 30.2 % (39.0-52.0); Hemoglobin 9.7 g/dL (13.0-18.0)
[2023-09-24] MEDS: SENOKOT 17.1999999999999993 MG PO (21:25)
[2023-09-24] MEDS: PEPCID 40 MG PO (21:25)
[2023-09-25] VITALS (7 sets, daily range): BP systolic 96–104; BP diastolic 49–55; PULSE 67–76; BMI 24.0
[2023-09-25] MEDS: ULTRAM 50 MG PO ×2 (02:31→13:14)
[2023-09-25 06:58] LABS: Hematocrit 28.8 % (39.0-52.0); Hemoglobin 9.2 g/dL (13.0-18.0); Mean Corp Hgb Conc. 31.9 g/dL (33.0-37.0); Mean Corpuscular Hgb 29.1 pg (27.0-31.0); Mean Corpuscular Volume 91.1 fL (80.0-94.0); Mean Platelet Volume 10.4 fL (7.4-10.4); Platelet Count 181 10^3/uL (130-400); Red Blood Cell Count 3.16 10^6/uL (4.70-6.10); Red Cell Dist. Width 17.9 % (11.5-14.5); White Blood Cell Count 13.1 10^3/uL (4.8-10.8)
[2023-09-25 07:08] LABS: Blood Urea Nitrogen 29 mg/dl (9-20); Carbon Dioxide 28 mmol/L (22-30); Chloride 106 mmol/L (98-107); Estimated Creatinine Clearance 55 ml/min; Glucose 88 mg/dl (70-99); Potassium 4.5 mmol/L (3.5-5.1); Sodium 138 mmol/L (135-145); eGFR > 60.00
[2023-09-25] MEDS: MUCINEX 600 MG PO ×2 (07:17→20:31)
[2023-09-25] MEDS: BETAPACE 40 MG PO ×2 (07:17→20:31)
[2023-09-25] MEDS: PROSCAR 5 MG PO (07:17)
[2023-09-25] MEDS: ELIQUIS 5 MG PO ×2 (07:17→20:32)
[2023-09-25] MEDS: FLOMAX 0.400000000000000022 MG PO ×2 (07:17→20:31)
[2023-09-25] MEDS: NON-FORMULARY ITEM 61 MG PO (07:18)
[2023-09-25] MEDS: TYLENOL 1000 MG PO ×3 (07:18→20:33)
[2023-09-25] MEDS: VENTOLIN NEBULES 2.5 MG INH ×2 (07:34→20:56)
[2023-09-25] MEDS: VENTOLIN NEBULES INH (07:49)
--- NOTE | 2023-09-25 07:52 | W.PN.UPDATE ---
Update Note
Progress Note Update
Patient seen and examined and chart reviewed. Asked to comment on hematoma evacuation.
Patient reporting some discomfort through right leg with significant swelling and bruising.
RLE
Skin intact, significant ecchymotic staining throughout leg, pitting edema distally
No groin pain with passive ROM right hip, moderate TTP over buttock/lateral trochanteric flare
No palpable knee effusion
Some lateral based ankle/foot TTP
87 yo M on anticoagulation s/p fall with right gluteal hematoma
No indication from my standpoint for hematoma evacuation
Recommend ice, elevation
Will order xray right foot/ankle
Formal consult to follow
--- NOTE | 2023-09-25 09:01 | W.PN.VS ---
Today's Communication / Plan
-
- Trend Hgb, stable at 9.2 today
- Recommend VALE wrap to RLE to control edema
- Consider CTA if concern for continued active bleed
- Appreciate ortho recs, no need for hematoma evacuation at this time
Assessment/Plan
-
87 year old male with right gluteal hematoma following a fall on eliquis
noncon CT with hematoma
- Trend Hgb, stable at 9.2 today
- Recommend VALE wrap to RLE to control edema
- Consider CTA if concern for continued active bleed
- Appreciate ortho recs, no need for hematoma evacuation at this time
Subjective Data
-
Date of Service: September 25, 2023
No acute events overnight. Reports continued pain in right hip, especially with ambulation. Feels slight improvement.
Objective Data
-
Vital Signs
Temp Pulse Resp BP Pulse Ox
98.0 F 85 18 99/49 97
09/25/23 07:35 09/25/23 07:38 09/25/23 07:38 09/25/23 07:35 09/25/23 07:38
Intake and Output
09/24/23 09/25/23 09/26/23
06:59 06:59 06:59
Intake Total 240 / 240 1620 / 1620
Balance 240 / 240 1620 / 1620
Intake:
Oral fluids 240 / 240 1620 / 1620
Other:
Number of approximated MODERATE 3
amounts of urine
Lab Results
09/25/23 06:20
09/25/23 06:20
Calcium 9.0 mg/dl (8.4-10.2) 09/25/23 06:20
Total Bilirubin 1.7 mg/dl (0.2-1.3) H 09/24/23 00:00
AST 26 U/L (17-59) 09/24/23 00:00
ALT 14 U/L (0-50) 09/24/23 00:00
Alkaline Phosphatase 69 U/L (38-126) 09/24/23 00:00
Total Protein 5.5 g/dl (6.3-8.2) L 09/24/23 00:00
Albumin 3.6 g/dl (3.5-5.0) 09/24/23 00:00
Physical Exam
-
Awake, alert, NAD
Regular rate and rhythm
Nonlabored respirations
Right lateral hip and thigh with moderate ecchymosis. Compartments soft.
Right calf and foot also with ecchymosis. Compartments soft.
Right foot edematous, sensorimotor intact. 1+ R DP pulse.
[2023-09-25 09:33] LABS: Vitamin B12 260 pg/ml (239-931)
--- NOTE | 2023-09-25 09:56 | W.PN.CD ---
Today's Communication / Plan
-
Continue Eliquis and sotalol
We will sign off; please call with questions/concerns or need for surgery.
Impression / Plan
-
87y M with PMH significant for hypertension, CLL, paroxysmal A-Fib and cardiac amyloidosis who presents to ED complaining of progressive RLE pain, swelling and bruising. Patient states that he initially suffered a fall on 09/12/23. We have been
consulted because of recent cardioversion and Eliquis.
Paroxysmal AF status post mid first cardioversion
Hgb stable; I did again discuss with him that given his recent cardioversion he is still within the 30-day window that he is at increased risk of stroke. However, given his significant ecchymosis and hematoma if he were need to hold his Eliquis
because of worsening likely blood loss anemia that this would put him at a slightly increased risk of stroke. He is understanding of this.
-Hgb appears stable continue Eliquis
-If surgery is indicated would need to hold for 48-72 hrs, and resume at surgeons discretion
-Continue sotalol
Physical Exam
Vital Signs/Labs
Vital Signs
Temp Pulse Resp BP Pulse Ox
98.0 F 85 18 99/49 97
09/25/23 07:35 09/25/23 07:38 09/25/23 07:38 09/25/23 07:35 09/25/23 07:38
09/24/23 09/25/23 09/26/23
06:59 06:59 06:59
Actual Weight 155 lb 5 oz 153 lb 2 oz
09/25/23 06:20
09/25/23 06:20
Physical Exam
Constitutional: No acute distress
EENT: Anicteric
Cardiovascular: Rhythm & rate is regular and Pedal edema present (trivial )
Respiratory: Respiratory effort normal and Lungs clear to auscul.
GI: Soft
Neuro/Psych: AO x 3
Other: Skin (large ecchymosis over entire RLE )
Data Reviewed
-
Date of Service: September 25, 2023
EKG: Tracing Personally Visualized and interpreted (sr)
Labs: Labs Reviewed by me
--- NOTE | 2023-09-25 11:14 | W.PN.HOSP.TC ---
Addendum entered and electronically signed by Kodak Blackman MD 09/25/23 12:30:
Spoke to daughter and updated
Original Note:
Today's Communication/Plan
-
Discharge planning to rehab
Possibly can be discharged tomorrow if hemoglobin stable with Hb monitoring in rehab
Add Midodrine
Bowel regimen
Assessment / Plan
Assessment / Plan
Patient is an 87y M with PMH significant for PA-Fib, cardiac amyloid, CLL and ASCVD who presents to ED complaining of worsening pain and swelling of the RLE s/p fall [address] with out IV contrast- Hematoma arising within the right gluteus maria g muscle. There is another hematoma within the lateral subcutaneous soft tissues. Diffuse subcutaneous edema, greatest laterally.
Enlarged lymph nodes are seen within the right groin and the right iliac region, and these appear larger than on examination of September 23, 2021. Interval increase in size of lymph nodes in this patient with a reported history of lymphoma.
CVS: S1-S2 normal
Chest: CTA B/L
Abdomen: Soft, NT / Bowel sounds present
Extremities: Right gluteal hematoma, echymosis thigh
#Right Gluteal Hematoma/ Right Greater Trochanter Hematoma/ RLE Edema / Ecchymosis
Ambulatory Dysfunction secondary to the above
Fall (09/12/23)
CT done today shows no evidence of bony involvement / fracture from recent fall.
c/w pain regimen
Resumed Eliquis due to recent Cardioversion. If drop in hemoglobin, will need to transfuse and monitor.
No indication for hematoma evacuation per Ortho
Wrap leg with daina to help with edema
#Acute Blood Loss Anemia secondary to the above
Hgb today is 9.2 from 9.8
Will keep monitoring h&H and transfuse as needed
Blood consent is signed.
Replace low B12
Iron studies OK
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
On Vyndamax 61 mg PO daily
# History of paroxysmal Atrial Fibrillation/atrial flutter
He followed with addictions counselor of [facility] ( Dr Rice) who is retiring, patient is going to follow-up with our local group.
Continue current CV med regimen
s/p recent DC cardioversion (09/12/23) for A-Fib.
Take Lasix only PRN for edema - current edema clearly due to injury / hematoma and not volume overload.
Appreciate cardiology input
He is on scheduled dose of Lasix 20 mg 2- 3 times a week
# History of GI bleeding/diverticulosis/hemorrhoids/IBS
At 1 point he was on low-dose Eliquis due to GI bleed in the past but the dose increased after cardioversion
# Chronic hypotension. Continue with sotalol
# History of complete heart block. Status post dual-chamber pacemaker.
#Chronic Cough-History of Lung Cancer with lobectomy
Atypical Pulmonary Infection, for follow up in OP.
Followed by local Pulmonary group.
Just completed 14 day course of abx and is scheduled for further evaluation with ID in the coming weeks.
No hypoxia.
Continue Wixela or equivalent
Follow-up as an outpatient as already scheduled.
# History of lung cancer with lobectomy
#CLL
Chronic leukocytosis
Needs to follow-up with hematology oncology given enlargement of nodes
# Enlarged prostate
Stable. Continue Tamsulosin / Finasteride.
Bladder scan protocol as needed.
# GERD-continue Pepcid
# Ex-smoker
#DVT Prophylaxis: None acutely given LE injury / active bleeding.
#Code Status: Full
D/W Case management re discharge tomorrow
Anticipated Discharge: Within 24 hours
Subjective/Interval History
-
Date of Service: September 25, 2023
Objective Data
-
Labs:
Laboratory Results
09/25/23
06:20
WBC 13.1 H
Hgb 9.2 L
Hct 28.8 L
Plt Count 181
Sodium 138
Potassium 4.5
Chloride 106
Carbon Dioxide 28
BUN 29 H
Creatinine 0.9
Glucose 88
Calcium 9.0
Vital Signs:
Vital Signs
Temp Pulse Resp BP Pulse Ox
98.0 F 85 18 99/49 97
09/25/23 07:35 09/25/23 07:38 09/25/23 07:38 09/25/23 07:35 09/25/23 07:38
I&O
09/24/23 09/25/23 09/26/23
06:59 06:59 06:59
Intake Total 240 / 240 1620 / 1620
Balance 240 / 240 1620 / 1620
[2023-09-25] MEDS: MILK OF MAGNESIA 30 ML PO (12:34)
[2023-09-25] MEDS: MIRALAX 17 GRAMS PO (12:34)
[2023-09-25] MEDS: SENOKOT 17.1999999999999993 MG PO (12:35)
[2023-09-25] MEDS: VITAMIN B-12 1000 MCG PO (12:35)
[2023-09-25] MEDS: ProAmatine 2.5 MG PO ×2 (12:35→17:13)
--- NOTE | 2023-09-25 12:39 | CM ---
Addendum entered by BRISSA Alfaro 09/25/23 14:14:
Spoke with Leyla in admissions at [facility] who stated that she may have a bed for patient, Monday but will know more tomorrow. Will call tomorrow and ask family to select a second option in the event that there are no available beds.
Original Note:
Reviewed chart, spoke with attending who stated that patient will most likely be ready for discharge tomorrow. His preference per her is the [facility]. Referral made over the weekend to Leyla Vargas in admissions at [facility] . Placed a f/u call
however had to leave a voice mail. Advised that patient will need a bed most likely for tomorrow. Requested return call for availability.
Plan: Case management will continue to follow and assist with discharge planning. Most likely SNF tomorrow. Family hopeful for the [facility].
--- NOTE | 2023-09-25 17:02 | CON.ORTHO ---
Consultation
-
Date/Time Consultation Requested: 09/24/2023 530 PM
Date/Time Consultation Performed: 09/25/2023 730 AM
Requesting Provider: Primary
Performing Provider: Chintan
Reason for Consultation: Right gluteal hematoma
Consultation - Orthopedics
History
HPI: 87-year-old male history of cardiac amyloidosis A-fib, CLL on anticoagulation presented to the [facility] emergency department with complaints of progressive right lower extremity pain swelling and bruising. He was subsequently admitted to the
hospital service for ambulatory dysfunction and orthopedics was consulted for further evaluation and treatment. During his hospitalization CT scan was obtained that showed quite significant gluteal hematoma. Vascular surgery was initially
consulted recommended obtaining CT scan with and without contrast to evaluate for potential ongoing bleeding. Orthopedics was then consulted to comment on possibility of hematoma evacuation. This morning patient is comfortable at rest. He
localizes most of his pain over the lateral aspect of his hip and gluteal musculature. He notes significant swelling and some discomfort throughout the right lower leg. He notes significant bruising as well. He initially had a fall on 09/12/2023.
He was initially seen at an urgent care and subsequently on an outpatient basis with nonoperative sports provider at [facility] orthopedics. Patient reports that there was some concern about possible occult hip fracture and he was given a prescription
for an MRI however this was difficult to obtain a timely manner because of his pacemaker. He does report that he has been able to ambulate while hospitalized with the use of a walker. Today he denies any groin pain. He is noting some lateral
based ankle pain as well.
Allergies / Home Medications
Past medical history: Hypertension, CLL, A-fib, cardiac amyloidosis, prostate cancer, lung cancer, BPH
Past surgical history: Right upper lobectomy, prostatectomy, PTCA with stent, cardiac ablation, pacemaker placement, hernia, cholecystectomy
Social history: Former smoker, lives at home
Family history not pertinent
Allergy/AdvReac Type Severity Reaction Status Date / Time
No Known Allergies Allergy Verified 09/23/23 23:42
�Medication �Instructions �Recorded
tamsulosin 0.4 mg capsule 0.4 mg PO BID Urinary issue 05/31/12
famotidine 40 mg tablet 40 mg PO HS Gastrointestinal issue 04/15/21
finasteride 5 mg tablet 5 mg PO DAILY Urinary issue 04/15/21
furosemide 20 mg tablet 20 mg PO .2X A WK NEEDED PRN 04/15/21
edema
tafamidis 61 mg capsule (Vyndamax) 61 mg PO DAILY Heart 04/15/21
disease/condition
zolpidem 5 mg tablet 5 mg PO HSPRN PRN SLEEP 04/15/21
multivitamin 1 tab PO DAILY Supplement 07/13/22
albuterol sulfate 2.5 mg/3 mL 2.5 mg inhalation Q4H PRN SOB 05/16/23
(0.083 %) solution for nebulization
apixaban 2.5 mg tablet (Eliquis) 5 mg PO BID Blood Clot 05/16/23
Prevention/Tx
fluticasone 500 mcg-salmeterol 50 1 inh inhalation Q12H 05/16/23
mcg/dose blistr powdr for Lung/Breathing Issues
inhalation (Wixela Inhub)
lactobacillus combination no.4 3 3,000 mmu cells PO DAILY probiotic 05/16/23
billion cell capsule (Probiotic)
albuterol sulfate 2.5 mg/3 mL 2.5 mg inhalation R BID 09/06/23
(0.083 %) solution for nebulization Lung/Breathing Issues
fluorouracil 5 % topical cream 1 applic topical DAILY PRN skin 09/06/23
care
guaifenesin 600 mg tablet, 600 mg PO BID Cough 09/06/23
extended release 12 hr (Mucinex)
ipratropium bromide 21 mcg (0.03 2 spray intranasal TID Allergies 09/06/23
%) nasal spray
sotalol 80 mg tablet 40 mg PO BID Arrhythmia 09/06/23
Vital Signs / Lab Results
Temp Pulse Resp BP Pulse Ox
97.9 F 61 15 99/53 99
09/25/23 15:31 09/25/23 15:31 09/25/23 15:31 09/25/23 15:31 09/25/23 15:31
09/25/23 06:20
09/25/23 06:20
10 point review systems reviewed and negative unless otherwise stated
General: Pleasant, no acute distress at rest
Musculoskeletal right lower extremity
Skin intact, significant ecchymotic staining throughout buttock thigh lower leg foot and ankle
There is pitting edema distally
There is some tenderness palpation of the lateral ankle and fibula as well as lateral foot
There is no tenderness palpation of the groin
There is no pain with logroll
There is moderate tenderness palpation over gluteal musculature
There is no ipsilateral palpable knee effusion
There is no significant groin pain reproducible with passive range of motion of right hip
Brisk cap refill distally
Diagnostic studies
CT scan right hip reviewed by myself. Radiology report was reviewed as well. There is evidence of hematoma right gluteus maria g as well as more superficially over the greater trochanter. There is no evidence of femoral neck fracture or
intertrochanteric femur fracture on my read. This was also noted on the radiologist read
X-rays right foot and ankle reviewed by myself. No evidence of fracture.
Assessment / Plan
87-year-old male on anticoagulation status post recent fall with significant right gluteal hematoma associated ecchymosis and swelling throughout right lower extremity. With regards to hematoma evacuation, I do not see any indication for this.
Would not recommend any evacuation of hematoma. Would recommend ice elevation for his hematoma and swelling to the right lower extremity. I would not recommend any acute therapeutic surgical intervention. Would defer anticoagulation to
vascular/cardiology team. He does report there was some concern about occult femoral neck fracture as outpatient orthopedic visit. My examination is not consistent today with this. I think it is unlikely given the CT scan that he would have an
occult femoral neck fracture. He has been ambulating without too much difficulty and this does not recreate any groin pain. He does have set up on outpatient basis MRI of right hip and if this was ordered would certainly continue with this
although I do not think this needs to be done on an urgent basis given his examination. Would recommend follow-up with his previously treating outpatient orthopedist. Please reach out with any questions or concerns
[2023-09-25] MEDS: PEPCID 40 MG PO (20:32)
[2023-09-25] MEDS: SENOKOT PO (20:36)
[2023-09-25] MEDS: COLACE PO (20:36)
[2023-09-26] VITALS (8 sets, daily range): BP systolic 93–105; BP diastolic 46–62; PULSE 66–88; O2SAT 94; BMI 24.2
[2023-09-26 06:39] LABS: Hematocrit 28.8 % (39.0-52.0); Hemoglobin 9.1 g/dL (13.0-18.0)
[2023-09-26] MEDS: VENTOLIN NEBULES 2.5 MG INH ×2 (07:30→18:20)
[2023-09-26] MEDS: NON-FORMULARY ITEM 61 MG PO (07:35)
[2023-09-26] MEDS: PROSCAR 5 MG PO (07:41)
[2023-09-26] MEDS: MUCINEX 600 MG PO ×2 (07:41→20:48)
[2023-09-26] MEDS: FLOMAX 0.400000000000000022 MG PO ×2 (07:41→20:47)
[2023-09-26] MEDS: TYLENOL 1000 MG PO ×3 (07:41→21:29)
[2023-09-26] MEDS: ELIQUIS 5 MG PO ×2 (07:42→20:47)
[2023-09-26] MEDS: BETAPACE 40 MG PO ×2 (07:42→20:47)
[2023-09-26] MEDS: MIRALAX PO (07:44)
[2023-09-26] MEDS: SENOKOT PO ×2 (07:44→20:48)
[2023-09-26] MEDS: COLACE PO ×2 (07:44→20:47)
[2023-09-26] MEDS: ProAmatine 2.5 MG PO (07:46)
[2023-09-26] MEDS: VITAMIN B-12 1000 MCG PO (07:47)
--- NOTE | 2023-09-26 12:06 | W.PN.HOSP.TC ---
Today's Communication/Plan
-
CXR
Possible discharge tomorrow
Assessment / Plan
Assessment / Plan
Patient is an 87y M with PMH significant for PA-Fib, cardiac amyloid, CLL and ASCVD who presents to ED complaining of worsening pain and swelling of the RLE s/p fall [address] with out IV contrast- Hematoma arising within the right gluteus maria g muscle. There is another hematoma within the lateral subcutaneous soft tissues. Diffuse subcutaneous edema, greatest laterally.
Enlarged lymph nodes are seen within the right groin and the right iliac region, and these appear larger than on examination of September 23, 2021. Interval increase in size of lymph nodes in this patient with a reported history of lymphoma.
CVS: S1-S2 normal
Chest: CTA B/L
Abdomen: Soft, NT / Bowel sounds present
Extremities: Right gluteal hematoma, echymosis thigh
#Right Gluteal Hematoma/ Right Greater Trochanter Hematoma/ RLE Edema / Ecchymosis
Ambulatory Dysfunction secondary to the above
Fall (09/12/23)
CT done today shows no evidence of bony involvement / fracture from recent fall.
c/w pain regimen
Resumed Eliquis due to recent Cardioversion. If drop in hemoglobin, will need to transfuse and monitor.
No indication for hematoma evacuation per Ortho
Wrap leg with daina to help with edema
#Acute Blood Loss Anemia secondary to the above
Hgb today is 9.1 from 9.8
Will keep monitoring h&H and transfuse as needed
Blood consent is signed.
Replace low B12
Iron studies OK
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
On Vyndamax 61 mg PO daily
# History of paroxysmal Atrial Fibrillation/atrial flutter
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
Continue current CV med regimen
s/p recent DC cardioversion (09/12/23) for A-Fib.
Take Lasix only PRN for edema - current edema clearly due to injury / hematoma and not volume overload.
Appreciate cardiology input
He is on scheduled dose of Lasix 20 mg 2- 3 times a week
Continue with sotalol
# History of GI bleeding/diverticulosis/hemorrhoids/IBS
At 1 point he was on low-dose Eliquis due to GI bleed in the past but the dose increased after cardioversion
# Chronic hypotension. Added Midodrine
# History of complete heart block. Status post dual-chamber pacemaker.
#Chronic Cough-History of Lung Cancer with lobectomy
Atypical Pulmonary Infection, for follow up in OP.
Followed by local Pulmonary group.
Just completed 14 day course of abx and is scheduled for further evaluation with ID in the coming weeks.
No hypoxia.
Continue Wixela or equivalent
Follow-up as an outpatient as already scheduled.
CXR today
# History of lung cancer with lobectomy
#CLL
Chronic leukocytosis
Needs to follow-up with hematology oncology given enlargement of nodes
# Enlarged prostate
Stable. Continue Tamsulosin / Finasteride.
Bladder scan protocol as needed.
# GERD-continue Pepcid
# Ex-smoker
#DVT Prophylaxis: None acutely given LE injury / active bleeding.
#Code Status: Full
D/W Case management
Anticipated Discharge: Within 24 hours
Subjective/Interval History
-
Date of Service: September 26, 2023
Objective Data
-
Labs:
Laboratory Results
09/26/23
06:25
Hgb 9.1 L
Hct 28.8 L
Vital Signs:
Vital Signs
Temp Pulse Resp BP Pulse Ox
98.4 F 62 16 102/48 95
09/26/23 11:00 09/26/23 11:00 09/26/23 11:00 09/26/23 11:00 09/26/23 11:00
I&O
09/25/23 09/26/23 09/27/23
06:59 06:59 06:59
Intake Total 1620 / 1620 1020 / 1020
Balance 1620 / 1620 1020 / 1020
[2023-09-26] MEDS: ProAmatine 5 MG PO ×2 (13:17→17:03)
[2023-09-26] MEDS: PEPCID 40 MG PO (21:30)
[2023-09-27] VITALS (7 sets, daily range): BP systolic 102–114; BP diastolic 48–63; PULSE 90; O2SAT 95; BMI 24.0
[2023-09-27] MEDS: ROBITUSSIN DM 5 ML PO (02:31)
[2023-09-27 07:07] LABS: Hematocrit 30.3 % (39.0-52.0); Hemoglobin 9.2 g/dL (13.0-18.0)
[2023-09-27] MEDS: ProAmatine 5 MG PO ×3 (07:47→17:45)
[2023-09-27] MEDS: MUCINEX 600 MG PO (07:47)
[2023-09-27] MEDS: FLOMAX 0.400000000000000022 MG PO ×2 (07:47→19:49)
[2023-09-27] MEDS: BETAPACE 40 MG PO ×2 (07:48→19:49)
[2023-09-27] MEDS: SENOKOT PO ×2 (07:48→20:43)
[2023-09-27] MEDS: PROSCAR 5 MG PO (07:49)
[2023-09-27] MEDS: COLACE PO ×2 (07:49→20:42)
[2023-09-27] MEDS: MIRALAX PO (07:49)
[2023-09-27] MEDS: ELIQUIS 5 MG PO ×2 (07:49→19:49)
[2023-09-27] MEDS: VITAMIN B-12 1000 MCG PO (07:49)
[2023-09-27] MEDS: TYLENOL 1000 MG PO ×3 (07:49→21:22)
[2023-09-27] MEDS: NON-FORMULARY ITEM 61 MG PO (07:52)
[2023-09-27] MEDS: VENTOLIN NEBULES 2.5 MG INH ×2 (08:10→20:06)
--- NOTE | 2023-09-27 09:43 | CM ---
Addendum entered by CROW AlfaroW 09/27/23 13:31:
Received call from Shanae in admissions at [facility] #[phone] who confirmed that she can take patient today/tomorrow. Will update patient. #For Report [phone]
Addendum entered by Geraldine Wilson, [facility] 09/27/23 12:34:
Spoke with attending who stated that patient may be medically cleared for discharge today/tomorrow. Met with patient who stated that he selects for referrals to be sent to: [facility], [facility], [facility], [facility] and [facility]. Per Leyla if facility is less than 10 miles from [facility], patient's can get transportation at no cost to the SNF. She confirmed that [place] is less than 10 miles and therefore will provide transportation.
Will make referrals.
Original Note:
Received call from Leyla in admissions at [facility] who stated that she will not have availability for patient all week. Will update family and make alternate referrals.
Plan: Case managment will continue to follow and assist with discharge planning. SNF when stable.
[2023-09-27] MEDS: VIBRAMYCIN 100 MG PO (09:52)
[2023-09-27] MEDS: ROCEPHIN 1000 MG IV (09:52)
[2023-09-27] MEDS: STERILE WATER FOR INJECTION 10 ML IV ×2 (09:52→12:35)
[2023-09-27] MEDS: FLUSH (NSS) 2 FLUSH IV (09:52)
[2023-09-27] MEDS: ADVAIR HFA 230/21 MCG INHALER 2 PUFF INH (11:17)
--- NOTE | 2023-09-27 11:49 | W.PN.HOSP.TC ---
Today's Communication/Plan
-
Repeat sputum culture sent
Infectious disease consultation requested
Discharge planning in progress- Needs SNF
Assessment / Plan
Assessment / Plan
Patient is an 87y M with PMH significant for PA-Fib, cardiac amyloid, CLL and ASCVD who presents to ED complaining of worsening pain and swelling of the RLE s/p fall [address] with out IV contrast- Hematoma arising within the right gluteus maria g muscle. There is another hematoma within the lateral subcutaneous soft tissues. Diffuse subcutaneous edema, greatest laterally.
Enlarged lymph nodes are seen within the right groin and the right iliac region, and these appear larger than on examination of September 23, 2021. Interval increase in size of lymph nodes in this patient with a reported history of lymphoma.
CVS: S1-S2 normal
Chest: CTA B/L
Abdomen: Soft, NT / Bowel sounds present
Extremities: Right gluteal hematoma, echymosis thigh
#Right Gluteal Hematoma/ Right Greater Trochanter Hematoma/ RLE Edema / Ecchymosis
Ambulatory Dysfunction secondary to the above
Fall (09/12/23)
CT done today shows no evidence of bony involvement / fracture from recent fall.
c/w pain regimen
Resumed Eliquis due to recent Cardioversion. If drop in hemoglobin, will need to transfuse and monitor.
No indication for hematoma evacuation per Ortho
Wrap leg with daina to help with edema
#Acute Blood Loss Anemia secondary to the above
Hgb today is 9.2 from 9.8
Will keep monitoring h&H and transfuse as needed
Blood consent is signed.
Replace low B12
Iron studies OK
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
On Vyndamax 61 mg PO daily
# History of paroxysmal Atrial Fibrillation/atrial flutter
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
Continue current CV med regimen
s/p recent DC cardioversion (09/12/23) for A-Fib.
Take Lasix only PRN for edema - current edema clearly due to injury / hematoma and not volume overload.
Appreciate cardiology input
He is on scheduled dose of Lasix 20 mg 2- 3 times a week
Continue with sotalol
# History of GI bleeding/diverticulosis/hemorrhoids/IBS
At 1 point he was on low-dose Eliquis due to GI bleed in the past but the dose increased after cardioversion
# Chronic hypotension. Added Midodrine
# History of complete heart block. Status post dual-chamber pacemaker.
#Chronic Cough-History of Lung Cancer with lobectomy
Spoke to Dr. Trinidad and got more information regarding his outpatient treatment.
He sees Dr. Damico as outpatient
Was treated with a course of Bactrim for Achromobacter Xylosoxidans.
He was then treated with 500 mg daily of Levaquin for 2 weeks for Pseudomonas.
Patient was recommended to follow-up with ID as outpatient needs an appointment coming up early October.
No hypoxia.
Continue Wixela or equivalent
Chest x-ray showing patchy changes slightly increased
Will treat with cefepime now and consult ID for recommendations.
# History of lung cancer with lobectomy
#CLL
Chronic leukocytosis
Needs to follow-up with hematology oncology given enlargement of nodes
He follows up with [facility]-aware that he needs a follow-up
# Enlarged prostate
Stable. Continue Tamsulosin / Finasteride.
Bladder scan protocol as needed.
# GERD-continue Pepcid
# Ex-smoker
#DVT Prophylaxis: Eliquis
#Code Status: Full
D/W Case management
Discussed with Dr. Gomez from pulmonary
Anticipated Discharge: Within 24 hours
Subjective/Interval History
-
Date of Service: September 27, 2023
Objective Data
-
Labs:
Laboratory Results
09/27/23
06:39
Hgb 9.2 L
Hct 30.3 L
Vital Signs:
Vital Signs
Temp Pulse Resp BP Pulse Ox
97.8 F 76 18 107/63 96
09/27/23 11:00 09/27/23 11:22 09/27/23 11:22 09/27/23 11:00 09/27/23 11:22
I&O
09/26/23 09/27/23 09/28/23
06:59 06:59 06:59
Intake Total 1020 / 1020 360 / 360
Balance 1020 / 1020 360 / 360
[2023-09-27] MEDS: MAXIPIME 2000 MG IV (12:36)
--- NOTE | 2023-09-27 13:17 | CON.ID ---
Consultation
-
Date/Time Consultation Requested: September 27, 2023 1158
Date/Time Consultation Performed: September 27, 2023 1320
Requesting Provider: Dr. Kodak Blackman
Performing Provider: Dr. Lila Donovan
Reason for Consultation: persistent cough
Chief Complaint / Past History
Chief Complaint
Right leg swelling and bruising.
Persistent cough.
History of Present Illness
87-year-old male with remote history of lung cancer status post right upper lobectomy, COPD, CLL under observation, atrial fibrillation on Eliquis who fell while in [place] 2 weeks ago. He then came to the hospital September 23 due to progressive swelling
and ecchymosis from the right buttock all the way down to his foot. He has significant hematoma with blood loss anemia. Orthopedic recommends supportive care.
Infectious Disease has been consulted for cough. I have reviewed outside records. Pt had been complaining of dyspnea on exertion with cough in 2022. On June 01 he had bronchoscopy without findings of endobronchial lesions, biopsies negative
for malignancy, culture grew MSSA and he was treated with a course of Augmentin. He had improvement of the cough. In July, he had worsening cough; sputum sent which grew Achromobacter and he was treated with Bactrim. Cough did not improve. On
September 03 sputum culture positive for Pseudomonas and he was placed on levofloxacin 500 mg a day x 14 days which he completed on September 22. Patient has not improved. He has upcoming appt with Infectious Disease on 10/12/23. He describes the cough as
paroxysmal, nonstop for about an hour and occurs about 3-4 times a day. Cough is mostly dry. Sometimes he has phlegm production. He coughs only when he is on an upright position. Cough during antibiotic. He has rhinorrhea for which he uses
nasal spray which helps. No sore throat. No fevers or chills. No known allergies that he is aware of. He denies new medications. No ill contacts. He is currently on Cefepime, doxycycline, and Tobramycin INH.
Past History
Additional Past Medical History:
CLL (observation)
Paroxysmal atrial fibrillation on Eliquis
Cardiac amyloidosis
CAD status post stent
PPM
HFpEF
Hypertension
BPH
Remote history of lung cancer status post right upper lobectomy 2001
Prostate cancer status post prostatectomy
Cholecystectomy
Hernia repair
Allergy History:
No Known Allergies Allergy (Verified 09/23/23 23:42)
Medications Reviewed: Yes
Current Antibiotics:
Cefepime
Doxycycline
Tobramycin
Social History
Tobacco: Former Smoker
Alcohol: Occasional
Drug: None
Personal:
Living: With Family ([facility])
Family History
Family History: Not Pertinent
Review of Systems
Review of Systems
General: Negative Fever, Chills or Change in Appetite
HEENT: Negative Sinus Problems, Headache or Pharyngitis
Cardiovascular: Negative Chest Pain
Respiratory: Dyspnea (SANCHEZ chronic) and Cough
Gasteroenterology: Other; Negative Nausea or Vomiting
Genital / Urological: Negative Dysuria or Flank Pain
Endocrine: Negative Weakness
Skin / Hair / Nails: Negative Rash
Neurological: Negative Headache or Dizziness
All systems: All other systems were reviewed and were negative
Vital Signs
Temp Pulse Resp BP Pulse Ox
97.8 F 76 18 107/63 96
09/27/23 11:00 09/27/23 11:22 09/27/23 11:22 09/27/23 11:00 09/27/23 11:22
Physical Exam
Physical Exam
Constitutional: No Acute Distress and Comfortable
Eyes: No Conjunctival Hemorrhage and Sclera Anicteric
Cardiovascular: Regular Rate, S1/S2, S3/S4 and Other (PPM site without erythema)
Pulmonary: Coarse (bases)
Gastrointestinal: Soft and Non Tender
Extremities: Edema (RLE with ecchymosis )
Neurological: AO x 3
Lab / Diagnostic Study Results
09/27/23 06:39
09/25/23 06:20
Abs Immat Gran (auto) 0.3 10^3/uL (0-0.05) H 09/24/23 00:00
Absolute Neuts (auto) 7.3 10^3/uL (1.4-6.5) H 09/24/23 00:00
Absolute Lymphs (auto) 7.7 10^3/uL (1.2-3.4) H 09/24/23 00:00
Absolute Monos (auto) 0.8 10^3/uL (0.1-0.6) H 09/24/23 00:00
Absolute Basos (auto) 0.0 10^3/uL (0-0.2) 09/24/23 00:00
Immature Gran % 1.5 % (0-0.5) H 09/24/23 00:00
Neutrophils % 44.7 % (42.2-75.2) 09/24/23 00:00
Lymphocytes % 46.6 % (20.5-51.1) 09/24/23 00:00
Monocytes % 5.0 % (1.7-9.3) 09/24/23 00:00
Eosinophils % 2.0 % (0-6) 09/24/23 00:00
Basophils % 0.2 % (0-2) 09/24/23 00:00
Lactic Acid 0.8 mmol/L (0.7-2.0) 09/24/23 03:46
Microbiology Results
Micro:
09/27/23 10:40 Respiratory Culture - Pending
Sputum Gram Stain - Preliminary
09/26/23 CXR: Patchy bibasilar airspace consolidation, most suggestive of pneumonia/interstitial pneumonitis, slightly progressed compared to prior chest x-ray
09/24/23 CT LE: No evidence for fracture or dislocation. Hematoma arising within the right gluteus maria g muscle. There is another hematoma within the lateral subcutaneous soft tissues. Diffuse subcutaneous edema, greatest laterally. Enlarged
lymph nodes are seen within the right groin and the right iliac region, and these appear larger than on examination of September 23, 2021. Interval increase in size of lymph nodes in this patient with a reported history of lymphoma.
Assessment / Plan
# 3 months of paroxysmal cough lasting 1 hour, several times a day
-s/p bronch/bx 05/2023
- s/p 3 courses of abx for organisms isolated from sputum this year; MSSA (Augmentin), Achromobacter (Bactrim), Pseudomonas (levofloxacin x 14d completed 09/22)
- Paroxysmal cough persists despite antibiotics.
- ? source from sotalol - started in July. Sotalol can be associated with bronchospasm
- Ordered RESOLUTION REP swab for pertussis PCR (although unlikely)
- Ordered Robitussin DM
- Recommend dc current abx's cefepime/doxy/RJ
- Can follow-up with me as scheduled on 10/11.
[2023-09-27] MEDS: ROBITUSSIN DM 10 ML PO (19:48)
[2023-09-27] MEDS: PEPCID 40 MG PO (21:24)
[2023-09-28 03:45] VITALS: BP 91/48
[2023-09-28 03:51] VITALS: BMI 24.0
[2023-09-28 06:00] VITALS: BMI 24.0
[2023-09-28] MEDS: ADVAIR HFA 230/21 MCG INHALER 2 PUFF INH (07:23)
[2023-09-28] MEDS: VENTOLIN NEBULES 2.5 MG INH (07:23)
[2023-09-28 07:48] VITALS: BP 111/57
[2023-09-28] MEDS: ELIQUIS 5 MG PO (08:32)
[2023-09-28] MEDS: BETAPACE 40 MG PO (08:33)
[2023-09-28] MEDS: VITAMIN B-12 1000 MCG PO (08:33)
[2023-09-28] MEDS: PROSCAR 5 MG PO (08:33)
[2023-09-28] MEDS: ProAmatine 5 MG PO ×2 (08:33→14:01)
[2023-09-28] MEDS: TYLENOL 1000 MG PO (08:33)
[2023-09-28] MEDS: FLOMAX 0.400000000000000022 MG PO (08:33)
[2023-09-28] MEDS: COLACE PO (08:34)
[2023-09-28] MEDS: MIRALAX PO (08:34)
[2023-09-28] MEDS: SENOKOT PO (08:34)
[2023-09-28] MEDS: NON-FORMULARY ITEM PO (08:43)
[2023-09-28] MEDS: ROBITUSSIN DM 10 ML PO (08:50)
[2023-09-28] MEDS: ULTRAM 50 MG PO (08:50)
[2023-09-28] MEDS: MIRALAX 17 GRAMS PO (09:54)
[2023-09-28] MEDS: SENOKOT 17.1999999999999993 MG PO (09:54)
[2023-09-28] MEDS: COLACE 100 MG PO (09:54)
[2023-09-28 11:18] VITALS: BP 99/55
--- NOTE | 2023-09-28 11:22 | W.PN.ID1 ---
Date of Service
Date of Service: September 28, 2023
Today's Communication
Observe off abx.
ID will sign off.
Assessment / Plan
# 3 months of paroxysmal cough lasting 1 hour, several times a day
-s/p bronch/bx 05/2023: neg malignancy, cx MSSA
- s/p 3 courses of abx for organisms isolated from sputum this year; MSSA (Augmentin), Achromobacter (Bactrim), Pseudomonas (levofloxacin x 14d completed 09/22)
- Paroxysmal cough persists despite antibiotics.
- ? source from sotalol - started in July. Sotalol can be associated with bronchospasm
- Bordetella pertussis PCR negative
- Sputum cx usual respiratory chio
- Continue Robitussin DM
- No need for antibiotic.
- ID will sign off.
#Additional Past Medical History:
CLL (observation)
Paroxysmal atrial fibrillation on Eliquis
Cardiac amyloidosis
CAD status post stent
PPM
HFpEF
Hypertension
BPH
Remote history of lung cancer status post right upper lobectomy 2001
Prostate cancer status post prostatectomy
Cholecystectomy
Hernia repair
Chief Complaint
-: Other (Cough)
Subjective / Review of Systems
Still with coughing fits
Vital Signs / Physical Exam
Vital Signs
Vital Signs
Temp Pulse Resp BP Pulse Ox
98.4 F 61 16 99/55 96
09/28/23 11:18 09/28/23 11:18 09/28/23 11:18 09/28/23 11:18 09/28/23 11:18
Physical Exam
Constitutional: No Acute Distress
Pulmonary: Rhonchi
Gastrointestinal: Soft, Non Tender and Distended
Extremities: Edema (RLE)
Neurological: AO x 3
Objective Data
Lab Data
Lab Results
09/27/23 06:39
09/25/23 06:20
Estimated Creat Clear 55 ml/min 09/25/23 06:20
Lactic Acid 0.8 mmol/L (0.7-2.0) 09/24/23 03:46
Total Bilirubin 1.7 mg/dl (0.2-1.3) H 09/24/23 00:00
AST 26 U/L (17-59) 09/24/23 00:00
ALT 14 U/L (0-50) 09/24/23 00:00
Alkaline Phosphatase 69 U/L (38-126) 09/24/23 00:00
Most recent labs reviewed.
Micro Results:
09/27/23 10:40 Respiratory Culture - Preliminary
Sputum Usual Respiratory Chio
Gram Stain - Preliminary
09/27/23 22:21 Bordetella pertussis DNA (PCR) - Final
Nasalpharynx Not Detected
Bordetella paraper/bronchiseptica - Final
Not Detected
Bordetella holmesii - Final
Not Detected
09/26/23 CXR: Patchy bibasilar airspace consolidation, most suggestive of pneumonia/interstitial pneumonitis, slightly progressed compared to prior chest x-ray
09/24/23 CT LE: No evidence for fracture or dislocation. Hematoma arising within the right gluteus maria g muscle. There is another hematoma within the lateral subcutaneous soft tissues. Diffuse subcutaneous edema, greatest laterally. Enlarged
lymph nodes are seen within the right groin and the right iliac region, and these appear larger than on examination of September 23, 2021. Interval increase in size of lymph nodes in this patient with a reported history of lymphoma.
--- NOTE | 2023-09-28 12:03 | CM ---
Addendum entered by BRISSA Alfaro 09/28/23 13:42:
Received notification from [facility] loading unit operator that patient was denied by ambulance. Placed a call to patient's and advised her to call [phone]. Advised of fee $135 and pick and shovel man time @3:30. She stated that she will call number to pay for
transport.
Addendum entered by BRISSA Alfaro 09/28/23 12:26:
[facility] updated that patient is selecting a different facility.
Original Note:
Reviewed chart, checked [employer]. [facility] offered acceptance. Placed a call to patient's daughter as patient was asleep. Patient's daughter was advised that [facility], [facility] and [facility] all offered acceptance. Patient's
daughter stated that she would like for patient to transfer to [facility]. Placed a call to Briseyda in admissions at [facility] who stated that unfortunately her facility is now full until after the holiday. Called patient's daughter back who stated
that in that case she selects [facility] as she does not want for patient to transfer to [facility] or [facility].
Placed a call to Marlyn in admissions at [facility] who confirmed acceptance for today
#for R [phone] and R [phone]
No auth needed.
Attending updated and stated that she will discharge.
Imm reviewed with daughter, completed and on chart.
Medical necessity and transfer sheet provided to [facility] loading unit operator.
Plan: Case management will continue to follow and assist with discharge planning. [facility].
--- NOTE | 2023-09-28 12:56 | W.PN.HOSP.TC ---
Today's Communication/Plan
-
Discharge
Assessment / Plan
Assessment / Plan
Patient is an 87y M with PMH significant for PA-Fib, cardiac amyloid, CLL and ASCVD who presents to ED complaining of worsening pain and swelling of the RLE s/p fall [address] with out IV contrast- Hematoma arising within the right gluteus maria g muscle. There is another hematoma within the lateral subcutaneous soft tissues. Diffuse subcutaneous edema, greatest laterally.
Enlarged lymph nodes are seen within the right groin and the right iliac region, and these appear larger than on examination of September 23, 2021. Interval increase in size of lymph nodes in this patient with a reported history of lymphoma.
CVS: S1-S2 normal
Chest: CTA B/L
Abdomen: Soft, NT / Bowel sounds present
Extremities: Right gluteal hematoma, echymosis thigh
edema right LE
#Right Gluteal Hematoma/ Right Greater Trochanter Hematoma/ RLE Edema / Ecchymosis
Ambulatory Dysfunction secondary to the above
Fall (09/12/23)
CT done today shows no evidence of bony involvement / fracture from recent fall.
c/w pain regimen
Resumed Eliquis due to recent Cardioversion. If drop in hemoglobin, will need to transfuse and monitor.
No indication for hematoma evacuation per Ortho
Wrap leg with daina to help with edema- he says he has foot pain when they wrap.
Discussed they can rap slightly more looser.
#Acute Blood Loss Anemia secondary to the above
Hgb today is 9.2 from 9.8
Will keep monitoring h&H and transfuse as needed
Blood consent is signed.
Replace low B12
Iron studies OK
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
On Vyndamax 61 mg PO daily
# History of paroxysmal Atrial Fibrillation/atrial flutter
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
Continue current CV med regimen
s/p recent DC cardioversion (09/12/23) for A-Fib.
Take Lasix only PRN for edema - current edema clearly due to injury / hematoma and not volume overload.
Appreciate cardiology input
He is on prn Lasix 20 mg 2- 3 times a week
He doesn't want to take today , Hell take at rehab tomorrow.
Continue with sotalol
# History of GI bleeding/diverticulosis/hemorrhoids/IBS
At 1 point he was on low-dose Eliquis due to GI bleed in the past but the dose increased after cardioversion
# Chronic hypotension. Added Midodrine
# History of complete heart block. Status post dual-chamber pacemaker.
#Chronic Cough-History of Lung Cancer with lobectomy
Spoke to Dr. Trinidad and got more information regarding his outpatient treatment.
He sees Dr. Damico as outpatient
Was treated with a course of Bactrim for Achromobacter Xylosoxidans.
He was then treated with 500 mg daily of Levaquin for 2 weeks for Pseudomonas.
Patient was recommended to follow-up with ID as outpatient needs an appointment coming up early October.
No hypoxia.
Continue Wixela or equivalent
Chest x-ray showing patchy changes slightly increased
ID eval appreciated
No more AB
OP F/U as scheduled.
# History of lung cancer with lobectomy
#CLL
Chronic leukocytosis
Needs to follow-up with hematology oncology given enlargement of nodes
He follows up with [facility]-aware that he needs a follow-up
# Enlarged prostate
Stable. Continue Tamsulosin / Finasteride.
Bladder scan protocol as needed.
# GERD-continue Pepcid
# Ex-smoker
#DVT Prophylaxis: Eliquis
#Code Status: Full
D/W Case management
Discharge time 32 min
Anticipated Discharge: Today
Subjective/Interval History
-
Date of Service: September 28, 2023
Objective Data
-
Vital Signs:
Vital Signs
Temp Pulse Resp BP Pulse Ox
98.4 F 61 16 99/55 96
09/28/23 11:18 09/28/23 11:18 09/28/23 11:18 09/28/23 11:18 09/28/23 11:18
I&O
09/27/23 09/28/23 09/29/23
06:59 06:59 06:59
Intake Total 360 / 360 780 / 780
Balance 360 / 360 780 / 780
--- NOTE | 2023-09-28 13:02 | W.DS.TRANS ---
Addendum entered and electronically signed by Kodak Blackman MD 09/28/23 13:31:
Dictation- [id number]
Original Note:
DC Summary - [employer]
-
Discharge Instructions:
Sleep Apnea Risk Intermediate
Discharge Diagnosis/Procedures Right gluteal hematoma, acute blood loss anemia,
cardiomyopathy, wild-type transthyretin
amyloidosis, history of GI bleed, pacemaker,
chronic cough, history of lung cancer, CLL,
enlarged prostate, GERD
Diet Restrict fluids to 64 oz,2 Gram Sodium
Activity As tolerated,With assistance
Driving Restrictions No driving
Blood Work cbc twice a week
Other Services PT,OT
Specialty Instructions Weigh Daily
Instructions:
Stand-Alone Forms:
Changes to Home Medications: No
Discharge Medications:
DC Medications w/original date entered in [facility]
tamsulosin 0.4 mg capsule 0.4 mg PO BID Urinary issue 05/31/12
famotidine 40 mg tablet 40 mg PO HS Gastrointestinal issue 04/15/21
finasteride 5 mg tablet 5 mg PO DAILY Urinary issue 04/15/21
furosemide 20 mg tablet 20 mg PO .2X A WK NEEDED PRN edema 04/15/21
tafamidis 61 mg capsule (Vyndamax) 61 mg PO DAILY Heart disease/condition 04/15/21
multivitamin 1 tab PO DAILY Supplement 07/13/22
albuterol sulfate 2.5 mg/3 mL (0.083 %) solution for nebulization 2.5 mg inhalation Q4H PRN SOB 05/16/23
fluticasone 500 mcg-salmeterol 50 mcg/dose blistr powdr for inhalation (Wixela Inhub) 1 inh inhalation Q12H Lung/Breathing Issues 05/16/23
lactobacillus combination no.4 3 billion cell capsule (Probiotic) 3,000 mmu cells PO DAILY probiotic 05/16/23
albuterol sulfate 2.5 mg/3 mL (0.083 %) solution for nebulization 2.5 mg inhalation R BID Lung/Breathing Issues 09/06/23
fluorouracil 5 % topical cream 1 applic topical DAILY PRN skin care 09/06/23
guaifenesin 600 mg tablet, extended release 12 hr (Mucinex) 600 mg PO BID Cough 09/06/23
ipratropium bromide 21 mcg (0.03 %) nasal spray 2 spray intranasal TID Allergies 09/06/23
sotalol 80 mg tablet 40 mg PO BID Arrhythmia 09/06/23
acetaminophen 500 mg tablet (Tylenol Extra Strength) 1,000 mg (2 x 500 mg) PO TID Pain #0 tabs 09/25/23
apixaban 5 mg tablet (Eliquis) 5 mg PO BID Blood clot prevention/tx #0 tabs 09/25/23
cyanocobalamin (vitamin B-12) 1,000 mcg tablet 1,000 mcg PO DAILY Supplement #0 tabs 09/25/23
docusate sodium 100 mg capsule 100 mg PO BID Constipation #0 caps 09/25/23
polyethylene glycol 3350 17 gram oral powder packet (HealthyLax) 17 g PO DAILY Constipation #0 ea 09/25/23
sennosides 8.6 mg tablet (Senna Laxative) 17.2 mg (2 x 8.6 mg) PO BID Constipation #0 tabs 09/25/23
tramadol 50 mg tablet 50 mg PO Q6HPRN PRN moderate pain #12 tabs 09/25/23
zolpidem 5 mg tablet 5 mg PO HSPRN PRN SLEEP #2 tabs 09/25/23
midodrine 5 mg tablet 5 mg feeding tube TID Blood pressure #30 tabs 09/26/23
Home Medication Changes
Pending Results: No
--- NOTE | 2023-09-28 15:05 | PTCARENOTE ---
Attempted report to facility. Awaiting call back.
== END 2023-09-28 15:16 | DRG 605 ==
LOC: 3 WEST ACU 04:27
PROVIDERS: Clinical Nurse Specialist Family Health; Internal Medicine; ADMITTING PHYSICIAN Hospitalist; ATTENDING PHYSICIAN Hospitalist; CONSULT PHYSICIAN Internal Medicine Cardiovascular Disease; CONSULT PHYSICIAN Orthopaedic Surgery; EMERGENCY PHYSICIAN Student in an Organized Health Care Education/Training Program; FAMILY PHYSICIAN Family Medicine; OTHER PHYSICIAN Internal Medicine Infectious Disease
DX: S30.0XXA Contusion of lower back and pelvis, initial encounter (principal); C91.10 Chronic lymphocytic leukemia of B-cell type not having achieved remission; D62 Acute posthemorrhagic anemia; I50.32 Chronic diastolic (congestive) heart failure; I43 Cardiomyopathy in diseases classified elsewhere; E85.82 Wild-type transthyretin-related (ATTR) amyloidosis; D68.8 Other specified coagulation defects; S70.01XA Contusion of right hip, initial encounter; W18.39XA Other fall on same level, initial encounter; I11.0 Hypertensive heart disease with heart failure; I48.0 Paroxysmal atrial fibrillation; N40.0 Benign prostatic hyperplasia without lower urinary tract symptoms; I25.10 Atherosclerotic heart disease of native coronary artery without angina pectoris; R05.3 Chronic cough; K21.9 Gastro-esophageal reflux disease without esophagitis; I95.89 Other hypotension; E78.00 Pure hypercholesterolemia, unspecified; J44.9 Chronic obstructive pulmonary disease, unspecified; Z79.01 Long term (current) use of anticoagulants; Z79.899 Other long term (current) drug therapy; Z85.118 Personal history of other malignant neoplasm of bronchus and lung; Z85.46 Personal history of malignant neoplasm of prostate; Z87.891 Personal history of nicotine dependence; Z95.0 Presence of cardiac pacemaker; Z95.5 Presence of coronary angioplasty implant and graft
CPT/HCPCS: 36415; 71046; 73610; 73630; 73700; 80048; 80053; 82607; 83540; 83550; 83605; 83735; 83880; 85014; 85018; 85025; 85027; 87070; 87071; 87186; 87205; 87798; 94640; 96374; 97116; 97162; 97166; 97530; 99285

== ENCOUNTER → 2023-11-16 10:15 | Outpatient (REF) | payer MEDICARE, OTHER, SELFPAY ==
[2023-11-16 13:59] LABS: IgG 450 mg/dl (700-1600)
[2023-11-16 14:05] LABS: IgA < 50 mg/dl (70-400); IgM < 25 mg/dl (40-230)
== END ==
LOC: HWLAB 10:15
PROVIDERS: ATTENDING PHYSICIAN Internal Medicine; FAMILY PHYSICIAN Nurse Practitioner Family
DX: J18.9 Pneumonia, unspecified organism (principal); Z86.19 Personal history of other infectious and parasitic diseases
CPT/HCPCS: 36415; 82784; 82785; 87070; 87205

== ENCOUNTER → 2023-11-21 07:28 | Outpatient (REF) | payer MEDICARE, OTHER, SELFPAY | LOC: RAD 07:28 | PROVIDERS: ATTENDING PHYSICIAN Family Medicine | DX: I73.9 Peripheral vascular disease, unspecified (principal); I82.622 Acute embolism and thrombosis of deep veins of left upper extremity | CPT/HCPCS: 93922; 93925; 93971 ==

== ENCOUNTER 2023-11-29 19:34 | Inpatient (IN) | payer MEDICARE, OTHER, SELFPAY ==
[2023-11-29 15:00] VITALS: BP 129/77
[2023-11-29 15:08] VITALS: BP 129/77
--- NOTE | 2023-11-29 15:19 | ED.GENMED ---
History of Present Illness
<Joyce Potts DO, Resident - Last Filed: 11/29/23 19:05>
General
Chief Complaint: Abdominal Symptoms
Source: patient and family
Time Seen by Provider: 11/29/23 15:05
History of Present Illness
History of Present Illness:
Pt is an 87 YO M presenting to the ED with NVD and ongoing pseudomonal pneumonia for 4 months. He is currently on antibiotics for pneumonia. He states that he has had at least 6 bowel movements today and last vomited at 1 PM. He states no
headaches, CP, painful inspiration, or fevers. He states he does have vision changes (blurriness), difficulty swallowing, cough, phlegm without blood, weakness in legs, NVD, and chills.
Past History
<Joyce Potts DO, Resident - Last Filed: 11/29/23 19:05>
Past History
ED Past Medical History: Arrthythmia (afib), CAD, Cancer (lung, Skin Cancer, CLL, ), COPD, HTN, Hypercholesterolemia and Other (BPH, Colitis, GI bleeding. Back and neck pain, PNA, Diverticulitis, IBS, Renal calulus, )
ED Past Surgical History: Cardiac (Stent, ablation 01/29/19 at [facility], pacemaker), Cholecystectomy, Orthopedic (Trigger finger, Right carpal tunnel, ) and Other (!/3 of R lung removed for CA, Cataracts. Right hernia repair, )
Social History
Tobacco: Former smoker
Alcohol: Occasional
Personal:
Living: with family
Family History
Family History: Other (Noncontributory)
Review of Systems
<Joyce Potts DO, Resident - Last Filed: 11/29/23 19:05>
Review of Systems
Constitutional: Reports fatigue and chills
EENT: Reports other (difficulty swallowing)
Respiratory: Reports cough, trouble breathing (mild, intermittent) and other (phlegm production)
Cardiac: Reports no symptoms
ABD/GI: Reports abdominal pain, nausea, vomiting and diarrhea
Skin: Reports no symptoms
Neurological: Reports weakness
Psychiatric: Reports no symptoms
Phy Exam
<Joyce Potts DO, Resident - Last Filed: 11/29/23 19:05>
General Physical Exam
General Presentation: well appearing and no apparent distress
General age: appears stated age
General Skin: warm and dry
General Habitus: normal and elderly
General Mental: alert
General Hydration: dry mucous membranes
Cardiovascular Exam
Cardiovascular Exam: regular rate/rhythm, no edema, no gallop, no JVD and no murmur
Pulmonary Exam
Pulmonary Exam: no respiratory distress, no rales, chest non tender, no rhonchi, no stridor, no wheezing and other (cough, some crackles)
Gastrointestinal Exam
Gastrointestinal Exam: normal bowel sounds, soft, no pulsatile mass, no cva tenderness, distended and tender
Musculoskeletal Exam
Musculoskeletal Exam: full ROM and edema
Skin Exam
Skin Exam: normal color and warm/dry
Psychiatric Exam
Psychiatric Exam: normal mood/affect
Course
<Joyce Potts DO, Resident - Last Filed: 11/29/23 19:05>
Orders/Labs/Results
Orders:
Orders
11/29/23 Dinner
NPO
Allow oral meds: Yes
Allow clear liquids: Sips of Clears
11/29/23 15:14
Electrocardiogram (*1) Urgent
Reason for Study: Chest Pain
EKG- Treatment ONCE
11/29/23 15:29
Urinalysis Urgent
CR Chest - 2 Views Urgent
Comment:
Reason For Exam: cough
11/29/23 15:31
Complete Blood Count/With Diff Urgent
Comprehensive Metabolic Panel Urgent
11/29/23 15:35
0.9% Sodium Chloride 1000 ml [Nss] 1,000 ml IV BOLUS
11/29/23 16:45
CT Abd/pelvis W Iv Cont Urgent
Comment:
Reason For Exam: abdominal pain, diarrhea
11/29/23 18:41
CDIFF [C difficile Antigen & Toxins] Urgent
DEHSAUN Source: Feces/Stool
Specimen Description:
Date Specimen was Collected: 11/29/23
Time Specimen was Collected: 15:56
Norovirus by PCR Urgent
DESHAUN Source: Feces/Stool
Specimen Description:
Date Specimen was Collected: 11/29/23
Time Specimen was Collected: 18:39
Stool Culture Urgent
DESHAUN Source: Feces/Stool
Specimen Description:
Date Specimen was Collected: 11/29/23
Time Specimen was Collected: 15:56
11/29/23 19:14
Admit/Transfer Patient As Directed
Co-Sign Provider:
Level of Care: Inpatient admission
Assign to:: Medical/Surgical
Physician / Group: wesley
Diagnosis: entercolitis
Reason for Hospitalization: enterocolitis
Expected length of stay greater than two midnights?: Yes
ELOS- Estimated Length of Stay in days: 2
I certify the patient meets the requirements for IP care: Yes
11/29/23 19:15
Code Status As Directed
Resuscitation Status: Do not resuscitate
Reached after discussion with pt or family/Healthcare POA: Yes
DNR Bracelet Application ONCE
11/29/23 19:19
Vancomycin HCl [Firvanq] 125 mg PO NOW STA
11/29/23 20:09
0.9% Sodium Chloride 1000 ml [Nss] 1,000 ml IV 80 mls/hr
Acetaminophen [Tylenol] 650 mg PO Q4HPRN PRN
Ondansetron Injectable [Zofran] 4 mg IV Q6HPRN PRN
11/29/23 20:09
VTE Contraindication Routine
VTE Mechanical Device Contraindication: Medical Contraindication
Pharmocologic Contraindication: Medical Contraindication
Activity As Directed
Activity Level: As Tolerated
Vital Signs As Directed
Frequency: Per unit guidelines
11/30/23 06:00
Complete Blood Count/With Diff IN AM
Comprehensive Metabolic Panel IN AM
Abnormal Lab Results
11/29/23
15:31
WBC 25.6 H 10^3/uL
(4.8-10.8)
MCHC 31.5 L g/dL
(33.0-37.0)
RDW 14.8 H %
(11.5-14.5)
MPV 11.2 H fL
(7.4-10.4)
Abs Immat Gran (auto) 0.1 H 10^3/uL
(0-0.05)
Absolute Neuts (auto) 12.8 H 10^3/uL
(1.4-6.5)
Absolute Lymphs (auto) 11.6 H 10^3/uL
(1.2-3.4)
Absolute Monos (auto) 0.9 H 10^3/uL
(0.1-0.6)
Chloride 109 H mmol/L
(98-107)
BUN 29 H mg/dl
(9-20)
Total Protein 5.8 L g/dl
(6.3-8.2)
11/29/23 15:31
11/29/23 15:31
Vital Signs
Initial and Last Documented VS:
Initial Vital Signs
Temp Pulse Resp BP Pulse Ox
97.9 F 78 20 129/77 90
11/29/23 15:00 11/29/23 15:00 11/29/23 15:00 11/29/23 15:00 11/29/23 15:00
Last Documented Vital Signs
Temp Pulse Resp BP Pulse Ox
98.1 F 99 19 128/86 93
11/29/23 20:36 11/29/23 20:36 11/29/23 20:36 11/29/23 20:36 11/29/23 20:36
<Zackery ValenciaWyatt Courtney, DO - Last Filed: 11/29/23 20:49>
Orders/Labs/Results
Orders:
Orders
11/29/23 Dinner
NPO
Allow oral meds: Yes
Allow clear liquids: Sips of Clears
11/29/23 15:14
Electrocardiogram (*1) Urgent
Reason for Study: Chest Pain
EKG- Treatment ONCE
11/29/23 15:29
Urinalysis Urgent
CR Chest - 2 Views Urgent
Comment:
Reason For Exam: cough
11/29/23 15:31
Complete Blood Count/With Diff Urgent
Comprehensive Metabolic Panel Urgent
11/29/23 15:35
0.9% Sodium Chloride 1000 ml [Nss] 1,000 ml IV BOLUS
11/29/23 16:45
CT Abd/pelvis W Iv Cont Urgent
Comment:
Reason For Exam: abdominal pain, diarrhea
11/29/23 18:41
CDIFF [C difficile Antigen & Toxins] Urgent
DESHAUN Source: Feces/Stool
Specimen Description:
Date Specimen was Collected: 11/29/23
Time Specimen was Collected: 15:56
Norovirus by PCR Urgent
DESHAUN Source: Feces/Stool
Specimen Description:
Date Specimen was Collected: 11/29/23
Time Specimen was Collected: 18:39
Stool Culture Urgent
DESHAUN Source: Feces/Stool
Specimen Description:
Date Specimen was Collected: 11/29/23
Time Specimen was Collected: 15:56
11/29/23 19:14
Admit/Transfer Patient As Directed
Co-Sign Provider:
Level of Care: Inpatient admission
Assign to:: Medical/Surgical
Physician / Group: wesley
Diagnosis: entercolitis
Reason for Hospitalization: enterocolitis
Expected length of stay greater than two midnights?: Yes
ELOS- Estimated Length of Stay in days: 2
I certify the patient meets the requirements for IP care: Yes
11/29/23 19:15
Code Status As Directed
Resuscitation Status: Do not resuscitate
Reached after discussion with pt or family/Healthcare POA: Yes
DNR Bracelet Application ONCE
11/29/23 19:19
Vancomycin HCl [Firvanq] 125 mg PO NOW STA
11/29/23 20:09
0.9% Sodium Chloride 1000 ml [Nss] 1,000 ml IV 80 mls/hr
Acetaminophen [Tylenol] 650 mg PO Q4HPRN PRN
Ondansetron Injectable [Zofran] 4 mg IV Q6HPRN PRN
11/29/23 20:09
VTE Contraindication Routine
VTE Mechanical Device Contraindication: Medical Contraindication
Pharmocologic Contraindication: Medical Contraindication
Activity As Directed
Activity Level: As Tolerated
Vital Signs As Directed
Frequency: Per unit guidelines
11/30/23 06:00
Complete Blood Count/With Diff IN AM
Comprehensive Metabolic Panel IN AM
Abnormal Lab Results
11/29/23
15:31
WBC 25.6 H 10^3/uL
(4.8-10.8)
MCHC 31.5 L g/dL
(33.0-37.0)
RDW 14.8 H %
(11.5-14.5)
MPV 11.2 H fL
(7.4-10.4)
Abs Immat Gran (auto) 0.1 H 10^3/uL
(0-0.05)
Absolute Neuts (auto) 12.8 H 10^3/uL
(1.4-6.5)
Absolute Lymphs (auto) 11.6 H 10^3/uL
(1.2-3.4)
Absolute Monos (auto) 0.9 H 10^3/uL
(0.1-0.6)
Chloride 109 H mmol/L
(98-107)
BUN 29 H mg/dl
(9-20)
Total Protein 5.8 L g/dl
(6.3-8.2)
11/29/23 15:31
11/29/23 15:31
Vital Signs
Initial and Last Documented VS:
Initial Vital Signs
Temp Pulse Resp BP Pulse Ox
97.9 F 78 20 129/77 90
11/29/23 15:00 11/29/23 15:00 11/29/23 15:00 11/29/23 15:00 11/29/23 15:00
Last Documented Vital Signs
Temp Pulse Resp BP Pulse Ox
98.1 F 99 19 128/86 93
11/29/23 20:36 11/29/23 20:36 11/29/23 20:36 11/29/23 20:36 11/29/23 20:36
<Joyce Potts DO, Resident - Last Filed: 11/29/23 19:05>
MDM/Problems Addressed
Differential Diagnosis Includes:
Inflammatory enterocolitis, norovirus, C. difficile
MDM/Problems Addressed:
Patient is an 87-year-old male presenting to the ED with 2 days of nausea, vomiting, diarrhea. He is stable. He continues to complain of diarrhea. Patient was given IV fluids in the ED. CT of the abdomen and pelvis showed splenomegaly, abdominal
ascites, and suspicion for a mild diffuse infectious or inflammatory enterocolitis. Labs showed elevated white count (25.6) and elevated BUN. Patient will be admitted to the hospital for further management of symptoms.
Chronic conditions affecting care:
NA
Acute Exacerbation and/or Progression of Chronic Illness:
NA
<Joyce Potts DO, Resident - Last Filed: 11/29/23 19:05>
*Radiology
Radiology exam reviewed: radiology read reviewed (Chest x-ray shows small bilateral pleural effusions, COPD, bilateral lung base patchy opacity. CT abdomen pelvis shows suspicion for mild diffuse infectious or inflammatory enterocolitis.)
*Pulse Oximetry
Patient hypoxic: no
*EKG
Interpreted by ED Provider?: Yes
EKG Intrepretation Date: 11/29/23
Interpretation: abnormal
Comparison EKG: changes noted
Heart Rate: 70
Rate: normal
Rhythm: ventricular paced
*Shearer Helper Interpretation
Rate: normal
Interpretation: normal
Heart Rate: 70
Rhythm: ventricular paced
*Critical Care Note
Total Time (30-74mins, 75-104mins- exclusive of procedures): Not Applicable
ED Attending Note
<Joyce Potts DO, Resident - Last Filed: 11/29/23 19:05>
-
Portions of this chart may have been created with voice recognition software.� Occasional wrong word or��sound alike� substitutions may have occurred due to the inherent limitations of voice recognition software.
<Zackery Courtney DO - Last Filed: 11/29/23 20:49>
ED Attending Note
Patient seen and examined by attending physician: Yes
I performed a history and physical exam of patient and discussed management with resident, I reviewed resident's note and agree with documented findings and plan of care.: Yes
ED Attending Note:
I agree with Alexei's note.
Pt with nausea/vomiting/diarrhea which has been present for the past day or so. Pt has been taking abx for pneumonia (cx + for pseudomonas) . He recently was taking Augment and then switched to Levaquin. He has been taking the Levaquin for 3
days. No blood or mucous in stool. Stool is frequent.
General: Awake, Alert, Oriented X3. No acute distress.
Vitals: unremarkable
Head: Atraumatic
Eyes: Pupils equal, EOMI
Throat: Airway intact, mildly dry mucosa
Neck: Trachea midline
Lungs: Clear and equal b/l
Heart: Regular rate, no murmurs
Abd: Soft, somewhat distended but not particularly tender, No pulsatile mass
Neuro: Nonfocal
Skin: Warm, dry, no rash
Extremities: pulses equal b/l, no edema
Concern for C. difficile, antibiotic associated diarrhea as a side effect, dehydration, electrolyte abnormality
Despite iv hydration and antiemetics continues to feel poorly....too weak to go home. Given this, current treatment for pneumonia, etc will hospitalize for iv hydration, monitoring.
Discharge Plan
Departure
Patient Disposition: Admit
Date of Disposition: 11/29/23
Time of Disposition: 18:52
Admit to: Telemetry
Presentation/result/management discussed w/ accepting MD/DO: Hospitalist
Patient with high blood pressure during this ER visit?: Yes
Condition: Fair
Discharge Problem:
Enterocolitis
Interventions
Interventions:
*Risk Screen - Suicide Last Done: 11/29/23 15:00
*General Assessment Last Done: 11/29/23 15:00
*Neglect/Abuse Screening Last Done: 11/29/23 15:00
ED- Fall Risk Assessment Last Done: 11/29/23 20:02
*ED COVID-19 Vaccine History Last Done: 11/29/23 20:02
*Nursing Disposition Last Done: 11/29/23 20:02
SC-Thwfrd-Kvsmflhcmk Assessment Last Done: 11/29/23 16:00
ED- Cardiac Assessment Last Done: 11/29/23 16:00
ED- Pulmonary Assessment Last Done: 11/29/23 16:00
Discharge Date and Time
Discharge Date/Time: 11/29/23 20:03
[2023-11-29 16:04] LABS: % Basophils 0.2 % (0-2); % Eosinophils 0.4 % (0-6); % Immature Granulocytes 0.5 % (0-0.5); % Lymphocytes 45.4 % (20.5-51.1); % Monocytes 3.6 % (1.7-9.3); % Neutrophils 49.9 % (42.2-75.2); Absolute Basophils 0.1 10^3/uL (0-0.2); Absolute Eosinophils 0.1 10^3/uL (0-0.7); Absolute Immature Granulocytes 0.1 10^3/uL (0-0.05); Absolute Lymphocytes 11.6 10^3/uL (1.2-3.4); Absolute Monocytes 0.9 10^3/uL (0.1-0.6); Absolute Neutrophils 12.8 10^3/uL (1.4-6.5); Hematocrit 45.1 % (39.0-52.0); Hemoglobin 14.2 g/dL (13.0-18.0); Mean Corp Hgb Conc. 31.5 g/dL (33.0-37.0); Mean Corpuscular Hgb 28.3 pg (27.0-31.0); Mean Corpuscular Volume 89.8 fL (80.0-94.0); Mean Platelet Volume 11.2 fL (7.4-10.4); Nucleated Red Blood Cells % 0.3 % (-); Platelet Count 206 10^3/uL (130-400); Red Blood Cell Count 5.02 10^6/uL (4.70-6.10); Red Cell Dist. Width 14.8 % (11.5-14.5); White Blood Cell Count 25.6 10^3/uL (4.8-10.8)
[2023-11-29 16:25] LABS: ALT (SGPT) 17 U/L (0-50); AST (SGOT) 44 U/L (17-59); Albumin 3.9 g/dl (3.5-5.0); Alkaline Phosphatase 67 U/L (38-126); Blood Urea Nitrogen 29 mg/dl (9-20); Calcium 9.4 mg/dl (8.4-10.2); Carbon Dioxide 26 mmol/L (22-30); Chloride 109 mmol/L (98-107); Glucose 92 mg/dl (70-99); Potassium 3.9 mmol/L (3.5-5.1); Sodium 142 mmol/L (135-145); Total Bilirubin 1.1 mg/dl (0.2-1.3); Total Protein 5.8 g/dl (6.3-8.2); eGFR > 60.00
[2023-11-29] MEDS: NSS 1000 IV ×2 (16:39→21:49)
[2023-11-29 18:11] VITALS: BP 118/84
--- NOTE | 2023-11-29 19:19 | HPS.HSE ---
Family Physician
-
Family Physician: Ochoa Serrano
Chief Complaint
-
vomiting, diarrhea
History of Present Illness
87-year-old male past medical history of paroxysmal atrial fibrillation/flutter, coronary artery disease status post stents, cardiac amyloid, restrictive cardiomyopathy, COPD, GI bleeding, chronic hypotension, complete heart block status post
dual-chamber pacemaker, lung cancer status post lobectomy, CLL, BPH, GERD, right gluteal hematoma/right greater trochanteric hematoma presenting with diarrhea since Monday and vomiting since today. He has had multiple episodes of watery diarrhea
and multiple episodes of vomiting. He has some generalized abdominal pain. He denies any fevers or chills.
He denies any recent travel, eating any restaurant or eating any republican food. He denies any sick contacts.
Patient has been treated with multiple courses of antibiotics for recurrent Pseudomonas pneumonia over the past year. He is currently 3 days into Levaquin followed by 10 days of amoxicillin in the current course. He continues to have shortness of
breath and cough with productive sputum.
Medical History
Past Medical History
Past Medical History: Reports Other (paroxysmal atrial fibrillation/flutter, coronary artery disease status post stents, cardiac amyloid, restrictive cardiomyopathy, COPD, GI bleeding, chronic hypotension, complete heart block status post
dual-chamber pacemaker, lung cancer status post lobectomy, CLL, BPH, GERD, right gluteal hematoma/)
Past Surgical History: Reports Other ( Cardiac (Stent, ablation 01/29/19 at [facility], pacemaker), Cholecystectomy, Orthopedic (Trigger finger, Right carpal tunnel, ) and Other (!/3 of R lung removed for CA, Cataracts. Right hernia repair, ))
Social History
Tobacco: Former Smoker
Alcohol: Former
Drug: None
Family History
Family History: Not pertinent
Allergies / Home Medications
Allergies reflects when Allergies were last updated in [facility].
Home Medications with original date entered in [facility]
Allergy/Medication List:
Allergies
Allergy/AdvReac Type Severity Reaction Status Date / Time
No Known Allergies Allergy Verified 11/29/23 15:12
Home Medications
tamsulosin 0.4 mg capsule 0.4 mg PO BID Urinary issue 05/31/12
famotidine 40 mg tablet 40 mg PO HS Gastrointestinal issue 04/15/21
finasteride 5 mg tablet 5 mg PO DAILY Urinary issue 04/15/21
furosemide 20 mg tablet 20 mg PO .2X A WK NEEDED PRN edema 04/15/21
tafamidis 61 mg capsule (Vyndamax) 61 mg PO DAILY Heart disease/condition 04/15/21
multivitamin 1 tab PO DAILY Supplement 07/13/22
albuterol sulfate 2.5 mg/3 mL (0.083 %) solution for nebulization 2.5 mg inhalation Q4H PRN SOB 05/16/23
fluticasone 500 mcg-salmeterol 50 mcg/dose blistr powdr for inhalation (Wixela Inhub) 1 inh inhalation Q12H Lung/Breathing Issues 05/16/23
lactobacillus combination no.4 3 billion cell capsule (Probiotic) 3,000 mmu cells PO DAILY probiotic 05/16/23
albuterol sulfate 2.5 mg/3 mL (0.083 %) solution for nebulization 2.5 mg inhalation R BID Lung/Breathing Issues 09/06/23
fluorouracil 5 % topical cream 1 applic topical DAILY PRN skin care 09/06/23
guaifenesin 600 mg tablet, extended release 12 hr (Mucinex) 600 mg PO BID Cough 09/06/23
ipratropium bromide 21 mcg (0.03 %) nasal spray 2 spray intranasal TID Allergies 09/06/23
sotalol 80 mg tablet 40 mg PO BID Arrhythmia 09/06/23
acetaminophen 500 mg tablet (Tylenol Extra Strength) 1,000 mg (2 x 500 mg) PO TID Pain #0 tabs 09/25/23
apixaban 5 mg tablet (Eliquis) 5 mg PO BID Blood clot prevention/tx #0 tabs 09/25/23
cyanocobalamin (vitamin B-12) 1,000 mcg tablet 1,000 mcg PO DAILY Supplement #0 tabs 09/25/23
docusate sodium 100 mg capsule 100 mg PO BID Constipation #0 caps 09/25/23
polyethylene glycol 3350 17 gram oral powder packet (HealthyLax) 17 g PO DAILY Constipation #0 ea 09/25/23
sennosides 8.6 mg tablet (Senna Laxative) 17.2 mg (2 x 8.6 mg) PO BID Constipation #0 tabs 09/25/23
tramadol 50 mg tablet 50 mg PO Q6HPRN PRN moderate pain #12 tabs 09/25/23
zolpidem 5 mg tablet 5 mg PO HSPRN PRN SLEEP #2 tabs 09/25/23
midodrine 5 mg tablet 5 mg feeding tube TID Blood pressure #30 tabs 09/26/23
Review of Systems
-
History Source: Patient
A 12 point ROS was completed and negative except as noted: Yes
Constitutional: Reports No Symptoms
EENT: Reports No Symptoms
Respiratory: Reports See HPI
Cardiac: Reports No Symptoms
Abdomen/GI: Reports See HPI
: Reports No Symptoms
Musculoskeletal: Reports No Symptoms
Skin: Reports No Symptoms
Neurological: Reports No Symptoms
Endocrine: Reports No Symptoms
Hematologic/Lymphatic: Reports No Symptoms
Psych: Reports No Symptoms
Physical Exam
Vital Signs
Vital Signs
Temp Pulse Resp BP Pulse Ox
97.9 F 70 24 129/77 95
11/29/23 15:00 11/29/23 15:15 11/29/23 15:15 11/29/23 15:08 11/29/23 15:15
Physical Exam
General: Well Developed, Well Nourished and No Apparent Distress
HEENT: NormoCephalic, Moist mucous membranes and Atraumatic
Respiratory: Clear
Cardiac: S1/S2 and Regular Rhythm; No Murmur or Rub
GI: Soft, Non Distended, Normal Bowel Sounds and Tender (diffusely ); No Organomegaly
Rectal: Deferred by Provider
Musculoskeletal: No Clubbing, No Cyanosis and No Edema
Skin: No Rash
Neuro: Nonfocal/grossly intact
Laboratory Results
-
11/29/23 15:31
11/29/23 15:31
Laboratory Results
Lactic Acid Cancelled 11/29/23 15:31
Total Bilirubin 1.1 mg/dl (0.2-1.3) 11/29/23 15:31
AST 44 U/L (17-59) 11/29/23 15:31
ALT 17 U/L (0-50) 11/29/23 15:31
Alkaline Phosphatase 67 U/L (38-126) 11/29/23 15:31
Data Reviewed
-
Lab Data: Labs Reviewed by me
Old Records: Reviewed
Impression/Plan
-
IMPRESSION:
PLAN:
# Sepsis (leukocytosis, tachypnea ) secondary to infectious enterocolitis
-CT abdomen pelvis shows progression of lymphadenopathy in the abdomen pelvis compatible with worsening of patient's known lymphoma, splenomegaly, mild abdominal ascites, suspicion for mild diffuse infectious/inflammatory enterocolitis
-C. difficile, stool culture, norovirus pending
-Patient given p.o. vancomycin, hold further doses until cdif result available
-N.p.o.
-IV fluids
# Recurrent Pseudomonas pneumonia
-Chest x-ray shows patchy opacities in the bilateral lung bases again suspicious for pneumonia or atypical infectious process small bilateral pleural effusions,
-Currently day 3 of Levaquin in current course, continue
Paroxysmal atrial fibrillation/flutter
-Continue Eliquis
-Continue sotalol
Coronary artery disease status post stents
Cardiac amyloid/restrictive cardiomyopathy
-Hold Lasix
-Continue vyndamax
History of complete heart block status post dual-chamber pacemaker
COPD
-Continue inhalers
History of GI bleed/diverticulosis/hemorrhoids/IBS
History of blood loss anemia
Chronic hypotension
-Continue midodrine
Lung cancer status post lobectomy
CLL
-Not currently on treatment
History of right gluteal/right greater trochanteric hematoma
BPH
-Continue finasteride, tamsulosin
GERD
-Continue famotidine
Ex-smoker
DNR/DNI
DVT prophylaxis�Eliquis
N.p.o.
[2023-11-29] MEDS: FIRVANQ 125 MG PO (19:53)
[2023-11-29 20:36] VITALS: BP 128/86
[2023-11-29] MEDS: PEPCID 20 MG PO (21:45)
[2023-11-29] MEDS: ProAmatine 5 MG PO (21:45)
[2023-11-29] MEDS: VISBIOME 1 CAP PO (21:45)
[2023-11-29 23:00] VITALS: BP 133/77
[2023-11-30] MEDS: BENADRYL 6.25 MG IV (00:42)
[2023-11-30 03:00] VITALS: BP 144/55
[2023-11-30] MEDS: ADVAIR HFA 230/21 MCG INHALER 2 PUFF INH ×2 (07:14→19:55)
[2023-11-30] MEDS: VENTOLIN NEBULES 2.5 MG INH ×2 (07:14→19:55)
[2023-11-30 07:40] VITALS: BP 123/67
[2023-11-30] MEDS: EFUDEX-40 1 APPLIC TOPICAL (08:21)
[2023-11-30] MEDS: ProAmatine 5 MG PO ×3 (08:22→16:18)
[2023-11-30] MEDS: THERAGRAN 1 TABLET PO (08:22)
[2023-11-30] MEDS: ELIQUIS 5 MG PO ×2 (08:22→20:05)
[2023-11-30] MEDS: BETAPACE 40 MG PO ×2 (08:23→20:05)
[2023-11-30] MEDS: LEVAQUIN 500 MG PO (08:24)
[2023-11-30] MEDS: VISBIOME 1 CAP PO ×2 (08:24→20:05)
[2023-11-30] MEDS: PROSCAR 5 MG PO (08:24)
[2023-11-30] MEDS: FLOMAX 0.4 MG PO ×2 (08:24→20:06)
[2023-11-30] MEDS: NSS 1000 IV (08:28)
[2023-11-30 08:52] LABS: % Basophils 0.2 % (0-2); % Eosinophils 0.4 % (0-6); % Immature Granulocytes 0.1 % (0-0.5); % Lymphocytes 68.5 % (20.5-51.1); % Monocytes 3.4 % (1.7-9.3); % Neutrophils 27.4 % (42.2-75.2); Absolute Eosinophils 0.1 10^3/uL (0-0.7); Absolute Lymphocytes 10.9 10^3/uL (1.2-3.4); Absolute Monocytes 0.5 10^3/uL (0.1-0.6); Absolute Neutrophils 4.3 10^3/uL (1.4-6.5); Hematocrit 43.4 % (39.0-52.0); Hemoglobin 13.7 g/dL (13.0-18.0); Mean Corp Hgb Conc. 31.6 g/dL (33.0-37.0); Mean Corpuscular Volume 91.8 fL (80.0-94.0); Mean Platelet Volume 12.1 fL (7.4-10.4); Nucleated Red Blood Cells % 0.7 % (-); Platelet Count 172 10^3/uL (130-400); Red Blood Cell Count 4.73 10^6/uL (4.70-6.10); White Blood Cell Count 15.9 10^3/uL (4.8-10.8)
[2023-11-30 09:34] VITALS: BMI 24.5
[2023-11-30 10:03] LABS: ALT (SGPT) 13 U/L (0-50); AST (SGOT) 22 U/L (17-59); Albumin 3.3 g/dl (3.5-5.0); Alkaline Phosphatase 59 U/L (38-126); Blood Urea Nitrogen 27 mg/dl (9-20); Calcium 8.9 mg/dl (8.4-10.2); Carbon Dioxide 21 mmol/L (22-30); Chloride 113 mmol/L (98-107); Estimated Creatinine Clearance 50 ml/min; Glucose 76 mg/dl (70-99); Potassium 3.4 mmol/L (3.5-5.1); Sodium 143 mmol/L (135-145); Total Protein 5.1 g/dl (6.3-8.2); eGFR > 60.00
[2023-11-30 10:58] VITALS: BP 127/63
--- NOTE | 2023-11-30 12:46 | W.PN.HOSP.TC ---
Today's Communication/Plan
-
GI and Pulm consults
will allow food
Assessment / Plan
Assessment / Plan
87-year-old male past medical history of paroxysmal atrial fibrillation/flutter, coronary artery disease status post stents, cardiac amyloid, restrictive cardiomyopathy, COPD, GI bleeding, chronic hypotension, complete heart block status post
dual-chamber pacemaker, lung cancer status post lobectomy, CLL, BPH, GERD, right gluteal hematoma/right greater trochanteric hematoma presenting with diarrhea since Monday and vomiting since today. He has had multiple episodes of watery diarrhea
and multiple episodes of vomiting. He has some generalized abdominal pain. He denies any fevers or chills.
He denies any recent travel, eating any restaurant or eating any alliance party food. He denies any sick contacts.
Patient has been treated with multiple courses of antibiotics for recurrent Pseudomonas pneumonia over the past year. He is currently 3 days into Levaquin followed by 10 days of amoxicillin in the current course. He continues to have shortness of
breath and cough with productive sputum.
# Sepsis (leukocytosis, tachypnea ) secondary to infectious enterocolitis
Etiology of process unclear, will consult GI
-CT abdomen pelvis: 1. Progression of lymphadenopathy in the abdomen and pelvis compared to the previous CT from 09/23/2021 compatible with worsening of the patient's known lymphoma, including enlarged lymph nodes in the portacaval, periportal,
retroperitoneal, bilateral iliac and inguinal lymph node stations.
2. Splenomegaly.
3. Mild abdominal ascites.
4. Suspicion for a mild diffuse infectious or inflammatory enterocolitis. Fluid attenuation in the colon and rectum suggesting a diarrheal illness.
5. Small right and trace left pleural effusions.
6. Mild bibasilar opacities may represent pneumonia or atelectasis.
-C. difficile neg, stool culture NGTD, norovirus negative
-Patient given p.o. vancomycin, hold further doses until cdif result available
-pt would like to eat, will order a diet, but told him he needs to be 'easy' on the eating and if starts to feel nauseous, needs to stop
-IV fluids
# Recurrent Pseudomonas pneumonia
-Chest x-ray shows patchy opacities in the bilateral lung bases again suspicious for pneumonia or atypical infectious process small bilateral pleural effusions,
-Currently day 3 of Levaquin in current course, continue
Pt followed by Dr. Scarlett Cooper, will consult
Paroxysmal atrial fibrillation/flutter
-Continue Eliquis
-Continue sotalol
Coronary artery disease status post stents
Cardiac amyloid/restrictive cardiomyopathy
-Hold Lasix
-Continue vyndamax
History of complete heart block status post dual-chamber pacemaker
COPD
-Continue inhalers
History of GI bleed/diverticulosis/hemorrhoids/IBS
History of blood loss anemia
Chronic hypotension
-Continue midodrine
Lung cancer status post lobectomy
CLL
-Not currently on treatment
History of right gluteal/right greater trochanteric hematoma
BPH
-Continue finasteride, tamsulosin
GERD
-Continue famotidine
Ex-smoker
DNR/DNI
DVT prophylaxis�Eliquis
will start LRD
Anticipated Discharge: > 48 hours
Subjective/Interval History
-
Date of Service: November 30, 2023
Cough has persisted and diarrhea is showing no signs of decreasing
Objective Data
-
Labs:
Laboratory Results
11/30/23
07:43
WBC 15.9 H
Hgb 13.7
Hct 43.4
Plt Count 172
Sodium 143
Potassium 3.4 L
Chloride 113 H
Carbon Dioxide 21 L
BUN 27 H
Creatinine 1.0
Glucose 76
Calcium 8.9
Total Bilirubin 1.0
AST 22
ALT 13
Alkaline Phosphatase 59
Vital Signs:
Vital Signs
Temp Pulse Resp BP Pulse Ox
97.5 F 64 18 127/63 93
11/30/23 10:58 11/30/23 11:40 11/30/23 10:58 11/30/23 11:40 11/30/23 10:58
I&O
11/29/23 11/30/23 12/01/23
06:59 06:59 06:59
Intake Total 960 / 960
Balance 960 / 960
Review of Systems
-
History Source: Patient
Constitutional: Denies Fever
EENT: Reports No Symptoms Reported
Respiratory: Reports Cough
Cardiac: Reports No Symptoms; Denies Chest Pain
Abdomen/GI: Reports Nausea, Vomiting and Diarrhea (severe watery diarrhea)
Physical Exam
-
General: Well Developed, Well Nourished and Conversant
HEENT: Normocephalic, Atraumatic and Moist Mucous Membranes
Respiratory: Other (coarse BS with recurrent rhonchus cough)
Cardiac: Regular Rhythm and S1/S2
GI: Soft, Nontender and Nondistended
Musculoskeletal: No Clubbing, No Cyanosis and No Edema
--- NOTE | 2023-11-30 13:09 | CON.PUL ---
Consultation
Consultation Request
Date/Time Consultation Requested: 11/30/23
Date/Time Consultation Performed: 11/30/23
Performing Provider: Kenneth
Reason for Consultation: History of recurrent PNA
Medical History
-
History of Present Illness:
Patient is an 87-year-old male with previous history of PAF, CAD status post stents, cardiac amyloid, CLL, CHB status post PPM, recurrent pneumonias, COPD, CHF presenting with subacute diarrhea since Monday associated with nausea and vomiting that
began in the past 24 hours. He notes multiple episodes of watery diarrhea, generalized abdominal pain. He was recently placed on antibiotics for Pseudomonas pneumonia, was treated with Levaquin and previously treated with amoxicillin. He has had
numerous episodes of recurrent pneumonia, treated with antibiotics in the past 6 months. IgG levels are low, planning for outpatient IVIG treatment.
CT AP showing progression of abdominal lymphadenopathy. He had been following with oncologist at [place] but not yet started on treatment.
Past Medical History
Past Medical History: Other (see list below)
Social History
Tobacco: Former Smoker
Alcohol: None
Drug: None
Family History
Family History: Reviewed & Not Pertinent
Allergies / Home Medications
Allergies
Allergy/AdvReac Type Severity Reaction Status Date / Time
No Known Allergies Allergy Verified 11/29/23 15:12
Home Medications
�Medication �Instructions �Recorded �Confirmed �Last Taken �Type
tamsulosin 0.4 mg capsule 0.4 mg PO BID Urinary issue 05/31/12 11/29/23 11/29/23 History
famotidine 40 mg tablet 40 mg PO HS Gastrointestinal issue 04/15/21 11/29/23 11/28/23 History
finasteride 5 mg tablet 5 mg PO DAILY Urinary issue 04/15/21 11/29/23 11/29/23 History
furosemide 20 mg tablet 20 mg PO .2X WEEKLY edema 04/15/21 11/29/23 04/28/23 History
tafamidis 61 mg capsule (Vyndamax) 61 mg PO DAILY Heart 04/15/21 11/29/23 11/29/23 History
disease/condition
multivitamin 1 tab PO DAILY Supplement 07/13/22 11/29/23 11/29/23 History
fluticasone 500 mcg-salmeterol 50 1 inh inhalation R Q12 05/16/23 11/29/23 11/29/23 History
mcg/dose blistr powdr for Lung/Breathing Issues
inhalation (Wixela Inhub)
albuterol sulfate 2.5 mg/3 mL 2.5 mg inhalation R BID 09/06/23 11/29/23 11/29/23 History
(0.083 %) solution for nebulization Lung/Breathing Issues
fluorouracil 5 % topical cream 1 applic topical DAILY PRN skin 09/06/23 11/29/23 Unknown History
care
ipratropium bromide 21 mcg (0.03 2 spray intranasal BID Allergies 09/06/23 11/29/23 11/29/23 History
%) nasal spray
sotalol 80 mg tablet 40 mg PO BID Arrhythmia 09/06/23 11/29/23 11/29/23 History
apixaban 5 mg tablet (Eliquis) 5 mg PO BID Blood clot 09/25/23 11/29/23 11/29/23 Rx
prevention/tx #0 tabs
zolpidem 5 mg tablet 5 mg PO HSPRN PRN SLEEP #2 tabs 09/25/23 11/29/23 Unknown Rx
Lactobac no.2-Bifidobac no.1-S. 1 cap PO .2-3X DAILY 11/29/23 11/29/23 Unknown History
thermo 112.5 billion cell capsule Gastrointestinal Issue
(Visbiome)
albuterol sulfate 90 mcg/actuation 2 puff inhalation R Q4HPRN PRN 11/29/23 11/29/23 Unknown History
aerosol inhaler sob/wheezing
levofloxacin 500 mg tablet 500 mg PO DAILY Infection 11/29/23 11/29/23 11/29/23 History
midodrine 5 mg tablet 5 mg PO TID Blood pressure 11/29/23 11/29/23 11/29/23 History
Review of Systems
-
History Source: Patient
All other systems: Negative unless noted
Vitals / Labs / Diagnostic Testing
Vital Signs
Temp Pulse Resp BP Pulse Ox
97.5 F 64 18 127/63 93
11/30/23 10:58 11/30/23 11:40 11/30/23 10:58 11/30/23 11:40 11/30/23 10:58
Lab Data
11/30/23 07:43
11/30/23 07:43
Microbiology
11/29/23 18:41 Feces/Stool Salmonella/Shigella Culture - Preliminary
Culture in Progress
11/29/23 18:41 Feces/Stool Campylobacter Culture - Preliminary
Culture in Progress
11/29/23 18:41 Feces/Stool Shiga Toxin Test - Final
No E. coli Shiga Toxin 1 or 2 detected.
11/29/23 18:41 Feces/Stool - Final
Negative for Norovirus GI and GII.
11/29/23 18:41 Feces/Stool C. difficile GDH Antigen & Toxins - Final
Negative for toxigenic C.difficile
Diagnostic Testing:
Physical Exam
-
HEENT: Normocephalic, Anicteric and Moist Mucous Membranes
Cardiovascular: S1/S2 and Regular Rhythm
Respiratory: Rhonchi and Non-Labored Respirations
GI: Soft, Non Distended and Non Tender
Neurology: Awake, Alert, Oriented, AO x 3 and No Motor Deficits
Skin: Warm, Dry and Good Color
General: Comfortable and Other (NAD)
Assessment
-
Patient is an 87-year-old male with previous history of PAF, CAD status post stents, cardiac amyloid, CLL, CHB status post PPM, recurrent pneumonias, COPD, CHF presenting with subacute diarrhea since Monday associated with nausea and vomiting that
began in the past 24 hours. He notes multiple episodes of watery diarrhea, generalized abdominal pain. He was recently placed on antibiotics for Pseudomonas pneumonia, was treated with Levaquin and previously treated with amoxicillin. CT AP
showing progression of abdominal lymphadenopathy. We are consulted for eval 11/30/23.
Subacute diarrhea x 1 week
N/V, abdominal pain
Recent abx use
Leukocytosis
Hypokalemia
Conditions present ASSESSMENT EXPERT
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
CLL, follows with Blake Duffy
Chronic fatigue
COPD with moderate obstruction
Emphysema
History of lung cancer status post resection 2003
Allergic rhinitis
Recurrent pneumonia
CHF
Former smoker
Pulmonary nodules s/p bronchoscopy 06/02/23 (PNA)
Plan
No oxygen was needed on admission, currently saturating >95% on RA
No need for home O2 on prior 6MWT completed in office
Prior history of lung disease is noted including
He has had numerous episodes of recurrent pneumonia, treated with antibiotics in the past 6 months.
Pseudomonas x 2, LVQ x 2 rounds
MSSA completed Ancef
Achromobacter, treated with Bactrim
IgG levels are low, planning for outpatient IVIG treatment
COPD history, moderate obstruction on last PFT
Resume on home inhaler regiment
JENNIFER severe-recently placed on CPAP but could not tolerate
He is working on compliance
Can resume while inpatient
Suspect patient has enterocolitis, unclear cause
C diff negative, has been positive in past
Could be side effects from Abx but CT AP showing worsening lymphadenopathy
We discussed second opinion from [place] on treatment
Had been followed yearly with [facility] with no plans for treatment per patient
GI consult as well
CXR/CT obtained indicating bilateral opacities which are always present
Recurrent PNA an issue
Can complete IV abx while inpatient
Consider ID consult with recurrent infections
CHF, AFib history
Prior ECHO results are reviewed indicating normal function
Resume home cardiac meds
Overall patient has numerous serious conditions all contributing to his issues
He has had many complications and deterioration in health over the course of the last 6 months
Difficult situation
He is DNR
We will follow
Diagnostic Data
Chest X-Ray: 11/29/23- 1. Patchy opacities in the bilateral lung bases again suspicious for pneumonia or other atypical infectious process.
2. Small bilateral pleural effusions.
3. Chronic obstructive pulmonary disease.
CT Scan: AP 11/29/23- . Progression of lymphadenopathy in the abdomen and pelvis compared to the previous CT from 09/23/2021 compatible with worsening of the patient's known lymphoma, including enlarged lymph nodes in the portacaval, periportal,
retroperitoneal, bilateral iliac and inguinal lymph node stations.
2. Splenomegaly.
3. Mild abdominal ascites.
4. Suspicion for a mild diffuse infectious or inflammatory enterocolitis. Fluid attenuation in the colon and rectum suggesting a diarrheal illness.
5. Small right and trace left pleural effusions.
6. Mild bibasilar opacities may represent pneumonia or atelectasis.
CHEST 08/04/23- .). Patchy linear and nodular lingular and bilateral lower lobe pneumonia has worsened in the interval since the prior study
2). Mediastinal and bilateral axillary lymphadenopathy has worsened in the interval since the prior study
3). There is moderate emphysema
4). There is mild cardiomegaly
Echo: 09/06/23- Normal biventricular size and systolic function without regional wall motion abnormality. Estimated LVEF 50-55%. Mild to moderate tricuspid regurgitation. No thrombus detected in the left atrial appendage.
No prior study available for comparison.
PFT's:
Reports and relevant images were personally reviewed.
Total time spent on this consultation __78__ includes review of history, physical exam, medications, laboratory data, personal review of imaging, extensive review of outpatient records, discussion with care team and respiratory therapy.
[2023-11-30] MEDS: D5/0.45%NSS with KCL 20 MEQ 1000 IV (13:16)
--- NOTE | 2023-11-30 13:50 | CON.GI ---
Addendum entered and electronically signed by Bucky Pollack MD 11/30/23 16:04:
I saw and examined the patient.
The ACCOUNT DEVELOPMENT MANAGER's note was reviewed and I agree with the note.
-- Acute diarrhea-recent antibiotic use for PNA. CT imaging on admission-mild enterocolitis. Stool studies-negative for C. difficile. Norovirus negative. Culture pending. Prior history of cholecystectomy. Last colonoscopy 2018-diverticulosis.
-- Nausea/vomiting-currently resolved
--Afib/Flutter on Eliquis
--Cardiac amyloid
--CLL-> not on treatment
plan
Lactose-free low-fat diet
Adequate hydration
Follow-up stool culture. Will add stool ova/parasite
trial of questran
Continue probiotic
Original Note:
Consultation
-
Date/Time Consultation Requested: 11/30/23 1217
Date/Time Consultation Performed: 11/30/23 1330
Requesting Provider: Dr. Lopez
Performing Provider: Dr. Pollack/LAURENCE Muniz
Reason for Consultation: diarrhea
Medical History
Chief Complaint / HPI
Chief Complaint: n/v/d
History of Present Illness:
87-year-old male with past medical history of paroxysmal A-fib/a flutter on Eliquis, CAD, cardiac amyloid, cardiomyopathy, COPD, chronic hypotension, complete heart block status post pacemaker, lung cancer status post lobectomy, CLL, BPH, GERD,
colitis after taking Linzess (2013), right gluteal hematoma who is currently being treated for recurrent episodes of Pseudomonas pneumonia over the past year. He had just finished Augmentin and was 3 days into Levaquin when he developed acute onset
of green diarrhea. The patient states that he had approximately 10-15 episodes of watery green diarrhea daily associated with abdominal cramping. After the second day he states that he had 2 episodes of nausea and vomiting. At which point he
[facility]. He was noted to be hypoxic and sent to the emergency room for further evaluation. He has had no further nausea and vomiting. He continues with watery diarrhea with multiple
episodes a day the patient states that this is still approximately 10-15. We are asked to evaluate for the same. His stool is negative for C. difficile. Negative for norovirus. He does not recall any sick contacts. His is well. He denies
any spoiled food. No new lunch meat. He denies any fevers, chills, melena, hematochezia, dysphagia or odynophagia. No early satiety or unintentional weight loss. No new medications other than the antibiotics described. He has no abdominal pain
except for some mild cramping prior to defecation. Patient was started on Vancomycin oral here empirically until CDiff results back. CDiff is negative and Vanco stopped. He also had no change in his sx. WBC 15.9 down from 25.6, hemoglobin 13.7,
hematocrit 43.4, platelets 172, sodium 143, potassium 3.4, chloride 113, CO2 21, BUN 27, creatinine 1.0, glucose 76, bilirubin 1.0, AST 22, ALT 13, alk phos 59, albumin 3.3. CT of the abdomen and pelvis with IV contrast showed progression of
lymphadenopathy in the abdomen and pelvis compared to the previous CT from 09/2021 compatible with worsening of the patient's known lymphoma, including enlarged lymph nodes in the portacaval, periportal and retroperitoneal, bilateral iliac and
inguinal lymph node. Splenomegaly. Mild abdominal ascites. Suspicion for mild diffuse infectious or inflammatory enterocolitis. Fluid attenuation in the colon and rectum suggesting diarrheal illness. Small right and trace left pleural
effusions. Mild bibasilar opacities may represent pneumonia or atelectasis.
Past Medical History
Past Medical History: Arrhythmias (A-fib/flutter, Heart block), CAD, Cancer (CLL, lung cancer), GERD, HTN, Hypercholesterolemia and Other (BPH, right gluteal hematoma, Cardiac amyloid)
Past Surgical History: Other (Cardiac stent, cardiac ablation, pacemaker, cholecystectomy, trigger finger repair, right carpal tunnel surgery, right partial lung lobectomy, cataracts, right hernia repair)
Social History
Tobacco: Former Smoker
Alcohol: None
Drug: None
Personal:
Living: With Family
Family History
Family History: Other (Maternal uncles x 2 colon cancer, no other family history of GI malignancy or IBD)
Allergies / Home Medications
Allergy/AdvReac Type Severity Reaction Status Date / Time
No Known Allergies Allergy Verified 11/29/23 15:12
�Medication �Instructions �Recorded
tamsulosin 0.4 mg capsule 0.4 mg PO BID Urinary issue 05/31/12
famotidine 40 mg tablet 40 mg PO HS Gastrointestinal issue 04/15/21
finasteride 5 mg tablet 5 mg PO DAILY Urinary issue 04/15/21
furosemide 20 mg tablet 20 mg PO .2X WEEKLY edema 04/15/21
tafamidis 61 mg capsule (Vyndamax) 61 mg PO DAILY Heart 04/15/21
disease/condition
multivitamin 1 tab PO DAILY Supplement 07/13/22
fluticasone 500 mcg-salmeterol 50 1 inh inhalation R Q12 05/16/23
mcg/dose blistr powdr for Lung/Breathing Issues
inhalation (Wixela Inhub)
albuterol sulfate 2.5 mg/3 mL 2.5 mg inhalation R BID 09/06/23
(0.083 %) solution for nebulization Lung/Breathing Issues
fluorouracil 5 % topical cream 1 applic topical DAILY PRN skin 09/06/23
care
ipratropium bromide 21 mcg (0.03 2 spray intranasal BID Allergies 09/06/23
%) nasal spray
sotalol 80 mg tablet 40 mg PO BID Arrhythmia 09/06/23
apixaban 5 mg tablet (Eliquis) 5 mg PO BID Blood clot 09/25/23
prevention/tx #0 tabs
zolpidem 5 mg tablet 5 mg PO HSPRN PRN SLEEP #2 tabs 09/25/23
Lactobac no.2-Bifidobac no.1-S. 1 cap PO .2-3X DAILY 11/29/23
thermo 112.5 billion cell capsule Gastrointestinal Issue
(Visbiome)
albuterol sulfate 90 mcg/actuation 2 puff inhalation R Q4HPRN PRN 11/29/23
aerosol inhaler sob/wheezing
levofloxacin 500 mg tablet 500 mg PO DAILY Infection 11/29/23
midodrine 5 mg tablet 5 mg PO TID Blood pressure 11/29/23
Review of Systems
-
All other systems: A 12 pt ROS was Negative except as stated above in HPI
Respiratory: Reports Cough
Vital Signs
Temp Pulse Resp BP Pulse Ox
97.5 F 64 18 127/63 93
11/30/23 10:58 11/30/23 11:40 11/30/23 10:58 11/30/23 11:40 11/30/23 10:58
Physical Exam
Exam
General: No Apparent Distress
HEENT: Anicteric
Respiratory: Clear and Other (+ cough)
Results
WBC 15.9 10^3/uL (4.8-10.8) H 11/30/23 07:43
Hgb 13.7 g/dL (13.0-18.0) 11/30/23 07:43
Hct 43.4 % (39.0-52.0) 11/30/23 07:43
MCV 91.8 fL (80.0-94.0) 11/30/23 07:43
Plt Count 172 10^3/uL (130-400) 11/30/23 07:43
Absolute Neuts (auto) 4.3 10^3/uL (1.4-6.5) 11/30/23 07:43
Sodium 143 mmol/L (135-145) 11/30/23 07:43
Potassium 3.4 mmol/L (3.5-5.1) L 11/30/23 07:43
Chloride 113 mmol/L (98-107) H 11/30/23 07:43
Carbon Dioxide 21 mmol/L (22-30) L 07/25/24 07:43
BUN 27 mg/dl (9-20) H 11/30/23 07:43
Creatinine 1.0 mg/dL (0.7-1.3) 11/30/23 07:43
Calcium 8.9 mg/dl (8.4-10.2) 11/30/23 07:43
Total Bilirubin 1.0 mg/dl (0.2-1.3) 11/30/23 07:43
AST 22 U/L (17-59) 11/30/23 07:43
ALT 13 U/L (0-50) 11/30/23 07:43
Alkaline Phosphatase 59 U/L (38-126) 11/30/23 07:43
Diagnostic Image Results:
CXR:
IMPRESSION:
1. Patchy opacities in the bilateral lung bases again suspicious for pneumonia or other atypical infectious process.
2. Small bilateral pleural effusions.
3. Chronic obstructive pulmonary disease.
Electronically signed by Jermaine Ortiz, 11/29/2023 4:[address] Abd/Pelvis with IV contrast:
IMPRESSION:
1. Progression of lymphadenopathy in the abdomen and pelvis compared to the previous CT from 09/23/2021 compatible with worsening of the patient's known lymphoma, including enlarged lymph nodes in the portacaval, periportal, retroperitoneal,
bilateral iliac and inguinal lymph node stations.
2. Splenomegaly.
3. Mild abdominal ascites.
4. Suspicion for a mild diffuse infectious or inflammatory enterocolitis. Fluid attenuation in the colon and rectum suggesting a diarrheal illness.
5. Small right and trace left pleural effusions.
6. Mild bibasilar opacities may represent pneumonia or atelectasis.
Electronically signed by Jermaine Ortiz, 11/29/2023 6:26 PM
Prior GI Procedures:
EGD: never
Colonoscopy: 11/21/2017 ([facility])
- Diverticulosis in the sigmoid colon and in the
descending colon.
- The examined portion of the ileum was normal.
Assessment / Plan
-
87-year-old male with past medical history of paroxysmal A-fib/a flutter on Eliquis, CAD, cardiac amyloid, cardiomyopathy, COPD, chronic hypotension, complete heart block status post pacemaker, lung cancer status post lobectomy, CLL, BPH, GERD,
colitis after taking Linzess (2012), right gluteal hematoma who is currently being treated for recurrent episodes of Pseudomonas pneumonia over the past year. He had just finished Augmentin and was 3 days into Levaquin when he developed acute onset
of green diarrhea. The patient states that he had approximately 10-15 episodes of watery green diarrhea daily associated with abdominal cramping. After the second day he states that he had 2 episodes of nausea and vomiting. At which point he
sought treatment at the [facility] where he lives and [facility]. He was noted to be hypoxic and sent to the emergency room for further evaluation. He has had no further nausea and vomiting. He continues with watery diarrhea with multiple
episodes a day the patient states that this is still approximately 10-15. We are asked to evaluate for the same. WBC 15.9 down from 25.6, hemoglobin 13.7, hematocrit 43.4, platelets 172, sodium 143, potassium 3.4, chloride 113, CO2 21, BUN 27,
creatinine 1.0, glucose 76, bilirubin 1.0, AST 22, ALT 13, alk phos 59, albumin 3.3. CT of the abdomen and pelvis with IV contrast showed progression of lymphadenopathy in the abdomen and pelvis compared to the previous CT from 09/2021 compatible
with worsening of the patient's known lymphoma, including enlarged lymph nodes in the portacaval, periportal and retroperitoneal, bilateral iliac and inguinal lymph node. Splenomegaly. Mild abdominal ascites. Suspicion for mild diffuse infectious
or inflammatory enterocolitis. Fluid attenuation in the colon and rectum suggesting diarrheal illness. Small right and trace left pleural effusions. Mild bibasilar opacities may represent pneumonia or atelectasis. Patient was started on
Vancomycin oral here empirically until CDiff results back. CDiff is negative and Vanco stopped. Norovirus negative. Negative Ecoli. Patient denies any recent steroid use.
Impression:
Diarrhea
Mild diffuse wall thickening and enhancement of small bowel and colon most suspicious for an infectious or inflammatory enterocolitis
N/V-> resolved
Leukocytosis
Pneumonia-> on Augmentin x 10 days, then Levaquin x 3 as outpatient. Continues at this time.
Afib/Flutter on Eliquis
Cardiac amyloid
CLL-> not on treatment
Plan:
-Await stool Salmonella, shigella.
-Check stool O&P, giardia, crypto
-Check Legionella
-Check TSH/Free T4
-Continue Probiotics
-Ok for low residue diet as tolerates
-Further recommendations to be forthcoming.
-
-
Thank you for consultation and allowing me to participate in the patient's care. Please call the correctional classification counselor GI physician during the after hours with any questions or concerns.
[2023-11-30 14:19] VITALS: BP 127/65
--- NOTE | 2023-11-30 15:09 | CM ---
Patient seen bedside with spouse in room.
Patient lives with spouse at [facility] in independent living.
Patient independent prior to admission, ambulates with a can since last admission in September.
Patient drives.
Patient d/c to [facility] in September for skilled therapy and transferred to the [facility] at [facility] once a bed opened.
If patient needs to return to skilled rehab he would prefer [facility].
Patient currently attending outpatient therapy at [facility].
If VN needed, patient would prefer [facility] VN.
Await PT/OT evals.
Spouse can transport.
PCP: Dr Serrano
Pharmacy: [facility]
Plan: home with possible VN
[2023-11-30] MEDS: QUESTRAN 4 GRAM PO (16:18)
[2023-11-30 19:10] LABS: Hepatitis A IgM Antibody Negative (Negative)
[2023-11-30 19:15] VITALS: BP 125/72
[2023-11-30] MEDS: PEPCID 20 MG PO (20:05)
[2023-11-30 23:10] VITALS: BP 136/69
[2023-11-30 23:37] LABS: Urine Albumin Trace (Neg - Trace); Urine Bilirubin Negative (Negative); Urine Character Clear (Clear); Urine Color Yellow; Urine Glucose Negative (Negative); Urine Ketone Negative (Negative); Urine Leukocyte Negative (Negative); Urine Nitrite Negative (Negative); Urine Occult Blood Negative (Negative); Urine Specific Gravity 1.025 (<1.030); Urine Urobilinogen Negative (Neg - 1+)
[2023-12-01] VITALS (7 sets, daily range): BP systolic 119–133; BP diastolic 66–93; PULSE 74
[2023-12-01] MEDS: D5/0.45%NSS with KCL 20 MEQ 1000 IV ×2 (02:33→21:20)
[2023-12-01] MEDS: ADVAIR HFA 230/21 MCG INHALER 2 PUFF INH ×2 (07:52→20:45)
[2023-12-01] MEDS: VENTOLIN NEBULES 2.5 MG INH ×2 (07:52→20:45)
[2023-12-01 08:20] LABS: Blood Urea Nitrogen 21 mg/dl (9-20); Calcium 9.2 mg/dl (8.4-10.2); Carbon Dioxide 27 mmol/L (22-30); Chloride 112 mmol/L (98-107); Estimated Creatinine Clearance 50 ml/min; Glucose 99 mg/dl (70-99); Magnesium 1.9 mg/dl (1.6-2.3); Potassium 3.9 mmol/L (3.5-5.1); Sodium 141 mmol/L (135-145); eGFR > 60.00
[2023-12-01 08:48] LABS: % Basophils 0.2 % (0-2); % Eosinophils 1.3 % (0-6); % Immature Granulocytes 0.4 % (0-0.5); % Lymphocytes 52.3 % (20.5-51.1); % Monocytes 6.1 % (1.7-9.3); % Neutrophils 39.7 % (42.2-75.2); Absolute Eosinophils 0.1 10^3/uL (0-0.7); Absolute Lymphocytes 5.5 10^3/uL (1.2-3.4); Absolute Monocytes 0.6 10^3/uL (0.1-0.6); Absolute Neutrophils 4.2 10^3/uL (1.4-6.5); Hematocrit 43.7 % (39.0-52.0); Hemoglobin 13.5 g/dL (13.0-18.0); Mean Corp Hgb Conc. 30.9 g/dL (33.0-37.0); Mean Corpuscular Hgb 28.1 pg (27.0-31.0); Mean Corpuscular Volume 90.9 fL (80.0-94.0); Mean Platelet Volume 11.4 fL (7.4-10.4); Nucleated Red Blood Cells % 0 % (-); Platelet Count 179 10^3/uL (130-400); Red Blood Cell Count 4.81 10^6/uL (4.70-6.10); White Blood Cell Count 10.6 10^3/uL (4.8-10.8)
[2023-12-01] MEDS: FLOMAX 0.4 MG PO ×2 (09:08→20:33)
[2023-12-01] MEDS: VISBIOME 1 CAP PO ×2 (09:08→20:35)
[2023-12-01] MEDS: LEVAQUIN 500 MG PO (09:08)
[2023-12-01 09:09] LABS: Free T4 1.03 ng/dl (0.78-2.19)
--- NOTE | 2023-12-01 09:11 | W.PN.GI.CBS2 ---
Today's Communication / Plan
-
Continue low residue/lactose-free diet, continue visibiome and questran. Clinically improving.
Assessment / Plan
-
87-year-old male with past medical history of paroxysmal A-fib/a flutter on Eliquis, CAD, cardiac amyloid, cardiomyopathy, COPD, chronic hypotension, complete heart block status post pacemaker, lung cancer status post lobectomy, CLL, BPH, GERD,
colitis after taking Linzess (2012), right gluteal hematoma admitted with acute diarrhea following recent antibiotic use for treatment of pseudomonas pneumonia found to have enterocolitis on imaging.
Acute Diarrhea-- clinically improving
-leukocytosis w/ initial WBC 25. 6--> 15.9 --> 10.6
-CT A/P-- mild enterocolitis
-empirically started on vanc, c.diff neg, vanc d/c'ed
- crypto, giardia, norovirus, legionella, shiga toxin neg; camplobacter, salmonella/shigella pending
-started on Questran 11/29 with improvement, recommend discharging with questran
- continue on visibiome
-continue on low-residue, low lactose diet
-if patient tolerates his diet today and clinically feels well, okay to d/c in AM from a GI perspective
-will sign off, please call back if patient has recurrence of symptoms
-recommend outpatient follow-up with GI
Subjective
Subjective
Date of Service: December 01, 2023
Patient seen in follow-up this morning. Reports feeling much better this morning, started questran last night, no episodes of diarrhea.
Objective
Data Reviewed
Laboratory Data:
Laboratory Results
12/01/23 07:26
12/01/23 07:26
Laboratory Results
Magnesium 1.9 mg/dl (1.6-2.3) 12/01/23 07:26
Total Bilirubin 1.0 mg/dl (0.2-1.3) 11/30/23 07:43
AST 22 U/L (17-59) 11/30/23 07:43
ALT 13 U/L (0-50) 11/30/23 07:43
Alkaline Phosphatase 59 U/L (38-126) 11/30/23 07:43
Vital Signs and I&O:
Vital Signs
Temp Pulse Resp BP Pulse Ox
97.8 F 74 14 129/88 92
12/01/23 07:30 12/01/23 08:08 12/01/23 08:08 12/01/23 07:30 12/01/23 07:30
I&O
11/30/23 12/01/23 12/02/23
06:59 06:59 06:59
Intake Total 960 / 960 1200 / 1200
Balance 960 / 960 1200 / 1200
Physical Exam
Physical Exam
GENERAL: In no acute distress, appears comfortable
ABDOMEN: +BS; soft, non-tender and non-distended; no rebound or guarding
[2023-12-01] MEDS: BETAPACE 40 MG PO ×2 (09:12→20:33)
--- NOTE | 2023-12-01 09:13 | W.PN.PUL3 ---
Today's Communication / Plan
-
Doing better, diarrhea improving
Referral to [place] for CLL
Hold off on further abx for PNA, discussed this with patient
Outpatient pulmonary FU recommended
Discharge planning per team if improving in next 24 hours
Assessment
-
Patient is an 87-year-old male with previous history of PAF, CAD status post stents, cardiac amyloid, CLL, CHB status post PPM, recurrent pneumonias, COPD, CHF presenting with subacute diarrhea since Monday associated with nausea and vomiting that
began in the past 24 hours. He notes multiple episodes of watery diarrhea, generalized abdominal pain. He was recently placed on antibiotics for Pseudomonas pneumonia, was treated with Levaquin and previously treated with amoxicillin. CT AP
showing progression of abdominal lymphadenopathy. We are consulted for eval 11/30/23.
Subacute diarrhea x 1 week
Suspect acute gastroenteritis
N/V, abdominal pain
Recent abx use
Leukocytosis
Hypokalemia
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
Chronic cough
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
CLL, follows with Blake Duffy
Chronic fatigue
COPD with moderate obstruction
Emphysema
History of lung cancer status post resection 2003
Allergic rhinitis
Recurrent pneumonia
CHF
Former smoker
Pulmonary nodules s/p bronchoscopy 06/02/23 (PNA)
Plan
No oxygen was needed on admission, currently saturating >95% on RA
No need for home O2 on prior 6MWT completed in office
Prior history of lung disease is noted including
He has had numerous episodes of recurrent pneumonia, treated with antibiotics in the past 6 months.
Pseudomonas x 2, LVQ x 2 rounds
MSSA completed Ancef
Achromobacter, treated with Bactrim
IgG levels are low, planning for outpatient IVIG treatment
COPD history, moderate obstruction on last PFT
Resume on home inhaler regiment
JENNIFER severe-recently placed on CPAP but could not tolerate
He is working on compliance
Can resume while inpatient
Suspect patient has enterocolitis, unclear cause
C diff negative, has been positive in past
Could be side effects from Abx but CT AP showing worsening lymphadenopathy
We discussed second opinion from [place] on treatment
Had been followed yearly with [facility] with no plans for treatment per patient
GI consult as well
Improving
CXR/CT obtained indicating bilateral opacities which are always present
Recurrent PNA an issue
We can repeat sputum cultures as OP but we have discussed holding on further abx for now due to diarrhea
CHF, AFib history
Prior ECHO results are reviewed indicating normal function
Resume home cardiac meds
Overall patient has numerous serious conditions all contributing to his issues
He has had many complications and deterioration in health over the course of the last 6 months
Difficult situation
He is DNR
Discharge planning in next 24 hours if improving
Diagnostic Data
Chest X-Ray: 11/29/23- . Patchy opacities in the bilateral lung bases again suspicious for pneumonia or other atypical infectious process.
2. Small bilateral pleural effusions.
3. Chronic obstructive pulmonary disease.
CT Scan: AP 11/29/23- . Progression of lymphadenopathy in the abdomen and pelvis compared to the previous CT from 09/23/2021 compatible with worsening of the patient's known lymphoma, including enlarged lymph nodes in the portacaval, periportal,
retroperitoneal, bilateral iliac and inguinal lymph node stations.
2. Splenomegaly.
3. Mild abdominal ascites.
4. Suspicion for a mild diffuse infectious or inflammatory enterocolitis. Fluid attenuation in the colon and rectum suggesting a diarrheal illness.
5. Small right and trace left pleural effusions.
6. Mild bibasilar opacities may represent pneumonia or atelectasis.
CHEST 08/04/23- .). Patchy linear and nodular lingular and bilateral lower lobe pneumonia has worsened in the interval since the prior study
2). Mediastinal and bilateral axillary lymphadenopathy has worsened in the interval since the prior study
3). There is moderate emphysema
4). There is mild cardiomegaly
Echo: 09/06/23- Normal biventricular size and systolic function without regional wall motion abnormality. Estimated LVEF 50-55%. Mild to moderate tricuspid regurgitation. No thrombus detected in the left atrial appendage.
No prior study available for comparison.
PFT's:
Reports and relevant images were personally reviewed.
Total time spent on this consultation __51__ includes review of history, physical exam, medications, laboratory data, personal review of imaging, extensive review of outpatient records, discussion with care team and respiratory therapy.
Subjective Data
-
Date of Service:
Date of Service: December 01, 2023
Chief Complaint: Pulmonary Follow Up
Subjective:
no new complaints
improving, diarrhea seems better
still with cough but this is chronic
Objective Data
Data Reviewed
Vital Signs / I&O / Oxygen:
Vital Signs
Temp Pulse Resp BP Pulse Ox
97.8 F 74 14 129/88 92
12/01/23 07:30 12/01/23 08:08 12/01/23 08:08 12/01/23 07:30 12/01/23 07:30
Intake and Output
11/30/23 12/01/23 12/02/23
06:59 06:59 06:59
Intake Total 960 / 960 1200 / 1200
Balance 960 / 960 1200 / 1200
SaO2 92
Physical Exam
General: Comfortable and Other (NAD)
HEENT: Normocephalic, Anicteric and Moist Mucous Membranes
Cardiovascular: S1-S2 and Regular Rhythm
Respiratory: Rhonchi (chronic cough) and Non-Labored Respirations
GI: Soft, Non Distended and Non Tender
Neurology: Awake, Alert, Oriented, AO x 3 and No Motor Deficits
Skin: Warm, Dry and Good Color
Labs/Micro/Reports
Lab Data
12/01/23 07:26
12/01/23 07:26
Microbiology
12/01/23 04:04 Feces/Stool Cryptosporidium/Giardia - Final
Negative for Cryptosporidium and/or Giardia Lamblia
antigens.
11/29/23 23:22 Nose MRSA Screen - Final
Staph aureus MRSA
11/30/23 23:20 Urine Legionella Urinary Antigen - Final
Negative for Legionella pneumophila Serogroup 1 antigen.
A negative result does not rule out the possiblity of
Legionella infection due to other serogroups or species of
Legionella. Clinical correlation is recommended.
11/29/23 18:41 Feces/Stool Salmonella/Shigella Culture - Preliminary
Culture in Progress
11/29/23 18:41 Feces/Stool Campylobacter Culture - Preliminary
Culture in Progress
11/29/23 18:41 Feces/Stool Shiga Toxin Test - Final
No E. coli Shiga Toxin 1 or 2 detected.
11/29/23 18:41 Feces/Stool - Final
Negative for Norovirus GI and GII.
11/29/23 18:41 Feces/Stool C. difficile GDH Antigen & Toxins - Final
Negative for toxigenic C.difficile
[2023-12-01] MEDS: PROSCAR 5 MG PO (09:14)
[2023-12-01] MEDS: ELIQUIS 5 MG PO ×2 (09:14→20:33)
[2023-12-01] MEDS: ProAmatine 5 MG PO (09:14)
[2023-12-01] MEDS: THERAGRAN 1 TABLET PO (09:14)
[2023-12-01] MEDS: QUESTRAN 4 GRAM PO (09:17)
--- NOTE | 2023-12-01 09:44 | CON.ONC ---
Impression
Impression
Enterocolitis, improving w/ abx and supportive care
CLL, with slight lymphocytosis and lymphadenopathy/splenomegaly, followed yearly at [facility], no treatment
Hypogammoglobulinemia, secondary to CLL, with recurrent bronchopulmonary infections
Plan
Plan
Supportive care per primary team
He's interested in transferring his CLL care from [facility] to [place]
No indications for CLL-directed therapy at this time
Will arrange office f/u in a few weeks
Will arrange outpatient IVIG as well, IgG pending
Patient History
History of Present Illness
This is an 87 yo w/ h/o CLL, not on treatment, followed yearly at [facility] (can't remember name of doctor), admitted to with GI symptoms and imaging c/w enterocolitis. Infectious workup negative thus far. He's clinically improving with antibiotics
and supportive care.
He's had multiple episodes of pseudomonas pneumonia recently, under the care of Dr. Pantoja. IVIG has been considered, but not yet initiated. He also Dr. Mcdonnell (cardiology) and Dr. Serrano (PMD)
In addition to enterocolitis, CT imaging showed mild splenomegaly and abd/pelvic lymphadenopathy c/w CLL. He's interested in transferring his CLL care locally.
Past-Medical/Surgical History
Past Medical History
Past Medical History: Reports Other (paroxysmal atrial fibrillation/flutter, coronary artery disease status post stents, cardiac amyloid, restrictive cardiomyopathy, COPD, GI bleeding, chronic hypotension, complete heart block status post
dual-chamber pacemaker, lung cancer status post lobectomy, CLL, BPH, GERD, right gluteal hematoma/)
Past Surgical History: Reports Other ( Cardiac (Stent, ablation 01/29/19 at [facility], pacemaker), Cholecystectomy, Orthopedic (Trigger finger, Right carpal tunnel, ) and Other (!/3 of R lung removed for CA, Cataracts. Right hernia repair, ))
Social History
Tobacco: Former Smoker
Alcohol: Former
Drug: None
Family History
Family History: Not pertinent
Patient Medication
�Medication �Instructions �Recorded �Confirmed �Last Taken �Type
tamsulosin 0.4 mg capsule 0.4 mg PO BID Urinary issue 05/31/12 11/29/23 11/29/23 History
famotidine 40 mg tablet 40 mg PO HS Gastrointestinal issue 04/15/21 11/29/23 11/28/23 History
finasteride 5 mg tablet 5 mg PO DAILY Urinary issue 04/15/21 11/29/23 11/29/23 History
furosemide 20 mg tablet 20 mg PO .2X WEEKLY edema 04/15/21 11/29/23 04/28/23 History
tafamidis 61 mg capsule (Vyndamax) 61 mg PO DAILY Heart 04/15/21 11/29/23 11/29/23 History
disease/condition
multivitamin 1 tab PO DAILY Supplement 07/13/22 11/29/23 11/29/23 History
fluticasone 500 mcg-salmeterol 50 1 inh inhalation R Q12 05/16/23 11/29/23 11/29/23 History
mcg/dose blistr powdr for Lung/Breathing Issues
inhalation (Wixela Inhub)
albuterol sulfate 2.5 mg/3 mL 2.5 mg inhalation R BID 09/06/23 11/29/23 11/29/23 History
(0.083 %) solution for nebulization Lung/Breathing Issues
fluorouracil 5 % topical cream 1 applic topical DAILY PRN skin 09/06/23 11/29/23 Unknown History
care
ipratropium bromide 21 mcg (0.03 2 spray intranasal BID Allergies 09/06/23 11/29/23 11/29/23 History
%) nasal spray
sotalol 80 mg tablet 40 mg PO BID Arrhythmia 09/06/23 11/29/23 11/29/23 History
apixaban 5 mg tablet (Eliquis) 5 mg PO BID Blood clot 09/25/23 11/29/23 11/29/23 Rx
prevention/tx #0 tabs
zolpidem 5 mg tablet 5 mg PO HSPRN PRN SLEEP #2 tabs 09/25/23 11/29/23 Unknown Rx
Lactobac no.2-Bifidobac no.1-S. 1 cap PO .2-3X DAILY 11/29/23 11/29/23 Unknown History
thermo 112.5 billion cell capsule Gastrointestinal Issue
(Visbiome)
albuterol sulfate 90 mcg/actuation 2 puff inhalation R Q4HPRN PRN 11/29/23 11/29/23 Unknown History
aerosol inhaler sob/wheezing
levofloxacin 500 mg tablet 500 mg PO DAILY Infection 11/29/23 11/29/23 11/29/23 History
midodrine 5 mg tablet 5 mg PO TID Blood pressure 11/29/23 11/29/23 11/29/23 History
Active Medications
Generic Name Dose Route Start Last Admin
Trade Name Freq PRN Reason Stop Dose Admin
Acetaminophen 650 mg 11/29/23 20:09
Acetaminophen 325 Mg Tablet PO 12/27/23 20:08
Q4HPRN PRN
mild pain/ZARATE/temp> 100.4F
Albuterol 2 puff 11/29/23 20:48
Albuterol Hfa [90 Mcg/Dose] Inhaler INH
R Q4HPRN PRN
sob/wheezing
Protocol
Albuterol Sulfate 2.5 mg 11/30/23 08:00 12/01/23 07:52
Albuterol Nebs 2.5 Mg/3 Ml Ampul INH 2.5 mg
R BID ELVIRA Administration
Protocol
Apixaban 5 mg 11/30/23 08:00 12/01/23 09:14
Apixaban (Eliquis) 5 Mg Tablet PO 12/28/23 07:59 5 mg
BID ELVIRA Administration
Cholestyramine Resin 4 gram 11/30/23 16:15 12/01/23 09:17
Cholestyramine 4 Gram Packet PO 12/28/23 16:14 4 gram
DAILY@1000 ELVIRA Administration
Famotidine 20 mg 11/29/23 22:00 11/30/23 20:05
Famotidine 20 Mg Tablet PO 12/27/23 21:59 20 mg
HS ELVIRA Administration
Finasteride 5 mg 11/30/23 08:00 12/01/23 09:14
Finasteride 5 Mg Tablet PO 12/28/23 07:59 5 mg
DAILY ELVIRA Administration
Fluorouracil 0 applic 11/29/23 20:48 11/30/23 08:21
Fluorouracil 5% (Cream) 40 Gram Tube TOPICAL 12/27/23 20:47 1 applic
DAILY PRN Administration
skin care
Potassium Chloride/Dextrose/Sod Cl 20 meq in 1,000 mls @ 80 mls/hr 11/30/23 14:00 12/01/23 02:33
D5/0.45%Nss With Kcl 20 Meq IV 1,000 mls
[id number] ELVIRA Administration
Lactobacillus/Bifidobacterium 1 cap 11/29/23 21:00 12/01/23 09:08
Lactobac/Bifidobac (Visbiome) PO 12/27/23 20:59 1 cap
BID ELVIRA Administration
Levofloxacin 500 mg 11/30/23 08:00 12/01/23 09:08
Levofloxacin 500 Mg Tablet PO 500 mg
DAILY ELVIRA Administration
Midodrine 5 mg 11/29/23 22:00 12/01/23 09:14
Midodrine 5 Mg Tablet PO 12/27/23 21:59 5 mg
TID @ 0800,1200,1700 ELVIRA Administration
Multivitamins Therapeutic 1 tablet 11/30/23 08:00 12/01/23 09:14
Multivitamin Tablet PO 12/28/23 07:59 1 tablet
DAILY ELVIRA Administration
Tafamidis [Vyndamax] 0 mg 11/30/23 08:00
61 Mg Capsule Po PO 12/28/23 07:59
Daily DAILY ELVIRA
Fluticasone/Salmeterol 2 puff 11/30/23 08:00 12/01/23 07:52
Advair Hfa 230/21 Inhaler INH 12/28/23 07:59 2 puff
R BID ELVIRA Administration
Sodium Chloride 0 flush 11/29/23 21:00
Sodium Chloride 0.9% (Flush) Syringe IV 12/27/23 20:59
PER PROTOCOL ELVIRA
Sotalol HCl 40 mg 11/30/23 08:00 12/01/23 09:12
Sotalol 80 Mg Tablet PO 12/28/23 07:59 40 mg
BID ELVIRA Administration
Tamsulosin HCl 0.4 mg 11/30/23 08:00 12/01/23 09:08
Tamsulosin 0.4 Mg Capsule PO 12/28/23 07:59 0.4 mg
BID ELVIRA Administration
Zolpidem Tartrate 5 mg 11/29/23 20:48
Zolpidem Tartrate 5 Mg Tablet PO 12/27/23 20:47
HSPRN PRN
SLEEP
Physical Exam
-
General: Well Developed, Well Nourished, No Apparent Distress and Comfortable
HEENT: Moist Mucous Membranes
Musculoskeletal: No Clubbing, No Cyanosis and No Edema
Neurology: Non Focal, No Lateralizing Symptoms and No Word Finding Difficulty
Skin: Warm and Dry
Psych: Calm and Intact Judgement/Insight
Labs
Lab Results
WBC 10.6 10^3/uL (4.8-10.8) 12/01/23 07:26
RBC 4.81 10^6/uL (4.70-6.10) 12/01/23 07:26
Hgb 13.5 g/dL (13.0-18.0) 12/01/23 07:26
Hct 43.7 % (39.0-52.0) 12/01/23 07:26
MCV 90.9 fL (80.0-94.0) 12/01/23 07:26
MCH 28.1 pg (27.0-31.0) 12/01/23 07:
MCHC 30.9 g/dL (33.0-37.0) L 12/01/23 07:
RDW 15.0 % (11.5-14.5) H 12/01/23 07:
Plt Count 179 10^3/uL (130-400) 12/01/23 07:26
MPV 11.4 fL (7.4-10.4) H 12/01/23 07:
Abs Immat Gran (auto) 0.0 10^3/uL (0-0.05) 12/01/23 07:
Absolute Neuts (auto) 4.2 10^3/uL (1.4-6.5) 12/01/23 07:
Absolute Lymphs (auto) 5.5 10^3/uL (1.2-3.4) H 12/01/23 07:
Absolute Monos (auto) 0.6 10^3/uL (0.1-0.6) 12/01/23:
Absolute Eos (auto) 0.1 10^3/uL (0-0.7) 12/01/23 07:
Absolute Basos (auto) 0.0 10^3/uL (0-0.2) 12/01/23 07:
Immature Gran % 0.4 % (0-0.5) 12/01/23 07:
Neutrophils % 39.7 % (42.2-75.2) L 12/01/23 07:
Lymphocytes % 52.3 % (20.5-51.1) H 12/01/23 07:
Monocytes % 6.1 % (1.7-9.3) 12/01/23:
Eosinophils % 1.3 % (0-6) 12/01/23:
Basophils % 0.2 % (0-2) 12/01/23 07:
Creatinine 1.0 mg/dL (0.7-1.3) 12/01/23 07:
Vital Signs
Vital Signs
Temp Pulse Resp BP Pulse Ox
97.8 F 80 14 129/88 92
12/01/23 07:30 12/01/23 09:12 12/01/23 08:08 12/01/23 09:12 12/01/23 07:30
[2023-12-01] MEDS: ProAmatine PO ×2 (12:23→17:35)
--- NOTE | 2023-12-01 12:48 | W.PN.HOSP.TC ---
Today's Communication/Plan
-
CT scan of chest
slow IVF
recheck labs in AMl
Assessment / Plan
Assessment / Plan
87-year-old male past medical history of paroxysmal atrial fibrillation/flutter, coronary artery disease status post stents, cardiac amyloid, restrictive cardiomyopathy, COPD, GI bleeding, chronic hypotension, complete heart block status post
dual-chamber pacemaker, lung cancer status post lobectomy, CLL, BPH, GERD, right gluteal hematoma/right greater trochanteric hematoma presenting with diarrhea since Monday and vomiting since today. He has had multiple episodes of watery diarrhea
and multiple episodes of vomiting. He has some generalized abdominal pain. He denies any fevers or chills.
He denies any recent travel, eating any restaurant or eating any alliance party food. He denies any sick contacts.
Patient has been treated with multiple courses of antibiotics for recurrent Pseudomonas pneumonia over the past year. On admission was currently 3 days into Levaquin followed by 10 days of amoxicillin in the current course. He continues to have
shortness of breath and cough with productive sputum.
# Sepsis (leukocytosis, tachypnea ) secondary to infectious enterocolitis
Etiology of process unclear, doing better on current Tx
WBC 25.6-->15.9-->10.6k
-CT abdomen pelvis: 1. Progression of lymphadenopathy in the abdomen and pelvis compared to the previous CT from 09/23/2021 compatible with worsening of the patient's known lymphoma, including enlarged lymph nodes in the portacaval, periportal,
retroperitoneal, bilateral iliac and inguinal lymph node stations.
2. Splenomegaly.
3. Mild abdominal ascites.
4. Suspicion for a mild diffuse infectious or inflammatory enterocolitis. Fluid attenuation in the colon and rectum suggesting a diarrheal illness.
5. Small right and trace left pleural effusions.
6. Mild bibasilar opacities may represent pneumonia or atelectasis.
-C. difficile neg, stool culture NGTD, norovirus negative
-Patient given p.o. vancomycin initially in er due to presumptive dx, will not resume
-pt would like to eat, will order a diet, but told him he needs to be 'easy' on the eating and if starts to feel nauseous, needs to stop
-IV fluids slowed
# Recurrent Pseudomonas pneumonia
-Chest x-ray shows patchy opacities in the bilateral lung bases again suspicious for pneumonia or atypical infectious process small bilateral pleural effusions,
-Currently day 3 of Levaquin in current course, continue
Pt followed by Dr. Scarlett Cooper, input appreciated. Pt was suppose to get CT scan of chest yesterday, prior to becoming sick, will order
Paroxysmal atrial fibrillation/flutter
-Continue Eliquis
-Continue sotalol
Coronary artery disease status post stents
Cardiac amyloid/restrictive cardiomyopathy
-Hold Lasix
-Continue vyndamax
History of complete heart block status post dual-chamber pacemaker
COPD
-Continue inhalers
History of GI bleed/diverticulosis/hemorrhoids/IBS
History of blood loss anemia
Chronic hypotension
-Continue midodrine
Lung cancer status post lobectomy
CLL
-Not currently on treatment. As per Onc: 'CLL, with slight lymphocytosis and lymphadenopathy/splenomegaly, followed yearly at [facility], no treatment
Hypogammoglobulinemia, secondary to CLL, with recurrent bronchopulmonary infections'
History of right gluteal/right greater trochanteric hematoma
BPH
-Continue finasteride, tamsulosin
GERD
-Continue famotidine
Ex-smoker
DNR/DNI
DVT prophylaxis�Eliquis
will start LRD
Anticipated Discharge: 24 - 48 hours
Subjective/Interval History
-
Date of Service: December 01, 2023
Still with cough, but diarrhea appears to have stopped
Objective Data
-
Labs:
Laboratory Results
12/01/23
07:26
WBC 10.6
Hgb 13.5
Hct 43.7
Plt Count 179
Sodium 141
Potassium 3.9
Chloride 112 H
Carbon Dioxide 27
BUN 21 H
Creatinine 1.0
Glucose 99
Calcium 9.2
Vital Signs:
Vital Signs
Temp Pulse Resp BP Pulse Ox
97.6 F 71 18 133/80 97
12/01/23 11:02 12/01/23 11:02 12/01/23 11:02 12/01/23 11:02 12/01/23 11:02
I&O
11/30/23 12/01/23 12/02/23
06:59 06:59 06:59
Intake Total 960 / 960 1200 / 1200
Balance 960 / 960 1200 / 1200
Review of Systems
-
History Source: Patient
Constitutional: Denies Fever
EENT: Reports No Symptoms Reported
Respiratory: Reports Cough
Cardiac: Reports No Symptoms; Denies Chest Pain
Abdomen/GI: Reports Diarrhea (severe watery diarrhea, has resolved); Denies Nausea or Vomiting
Physical Exam
-
General: Well Developed, Well Nourished and Conversant
HEENT: Normocephalic, Atraumatic and Moist Mucous Membranes
Respiratory: Other (coarse BS with recurrent rhonchus cough)
Cardiac: Regular Rhythm and S1/S2
GI: Soft, Nontender and Nondistended
Musculoskeletal: No Clubbing, No Cyanosis and No Edema
[2023-12-01] MEDS: ProAIR HFA INHALER 2 PUFF INH (14:52)
--- NOTE | 2023-12-01 15:16 | CM ---
Patient seen at bedside.
Plan to return back to [facility] when stable.
TT Dr. Lopez for PT/OT orders.
PLAN: Discharge home with VN.
[2023-12-01] MEDS: PEPCID 20 MG PO (21:20)
[2023-12-02] MEDS: ROBITUSSIN 200 MG PO ×3 (02:32→23:04)
[2023-12-02 03:07] VITALS: BP 122/78
[2023-12-02 06:00] VITALS: BMI 25.2
[2023-12-02 07:00] VITALS: BP 135/83
[2023-12-02] MEDS: VISBIOME 1 CAP PO ×2 (07:42→19:46)
[2023-12-02] MEDS: BETAPACE 40 MG PO ×2 (07:42→19:46)
[2023-12-02] MEDS: ProAmatine 5 MG PO ×3 (07:48→16:44)
[2023-12-02] MEDS: FLOMAX 0.4 MG PO ×2 (07:48→19:46)
[2023-12-02] MEDS: LEVAQUIN 500 MG PO (07:49)
[2023-12-02] MEDS: THERAGRAN 1 TABLET PO (07:49)
[2023-12-02] MEDS: ELIQUIS 5 MG PO ×2 (07:50→19:47)
[2023-12-02] MEDS: PROSCAR 5 MG PO (07:50)
[2023-12-02] MEDS: VENTOLIN NEBULES 2.5 MG INH ×2 (08:15→20:20)
[2023-12-02] MEDS: ADVAIR HFA 230/21 MCG INHALER 2 PUFF INH ×2 (08:16→20:20)
[2023-12-02 08:58] LABS: % Basophils 0.2 % (0-2); % Eosinophils 0.8 % (0-6); % Immature Granulocytes 0.5 % (0-0.5); % Lymphocytes 48.9 % (20.5-51.1); % Monocytes 6.7 % (1.7-9.3); % Neutrophils 42.9 % (42.2-75.2); Absolute Eosinophils 0.1 10^3/uL (0-0.7); Absolute Immature Granulocytes 0.1 10^3/uL (0-0.05); Absolute Neutrophils 6.1 10^3/uL (1.4-6.5); Hematocrit 44.4 % (39.0-52.0); Mean Corp Hgb Conc. 31.5 g/dL (33.0-37.0); Mean Corpuscular Volume 88.8 fL (80.0-94.0); Mean Platelet Volume 11.2 fL (7.4-10.4); Nucleated Red Blood Cells % 0.4 % (-); Platelet Count 195 10^3/uL (130-400); Red Cell Dist. Width 14.9 % (11.5-14.5); White Blood Cell Count 14.2 10^3/uL (4.8-10.8)
[2023-12-02 09:34] LABS: Blood Urea Nitrogen 16 mg/dl (9-20); Carbon Dioxide 25 mmol/L (22-30); Chloride 111 mmol/L (98-107); Estimated Creatinine Clearance 55 ml/min; Glucose 88 mg/dl (70-99); Sodium 141 mmol/L (135-145); eGFR > 60.00
[2023-12-02] MEDS: QUESTRAN 4 GRAM PO (09:39)
[2023-12-02 09:44] LABS: Calcium 9.2 mg/dl (8.4-10.2)
[2023-12-02] MEDS: OCEAN, SALINE MIST 1 SPRAYS NASAL (12:25)
--- NOTE | 2023-12-02 12:27 | W.PN.PUL.V3 ---
Today's Communication / Plan
-
Wean oxygen
Increase activity
Nebulizers as needed
Levofloxacin per primary team
Outpatient pulmonary follow-up
Assessment
-
Patient is an 87-year-old male with previous history of PAF, CAD status post stents, cardiac amyloid, CLL, CHB status post PPM, recurrent pneumonias, COPD, CHF presenting with subacute diarrhea since Monday associated with nausea and vomiting that
began in the past 24 hours. He notes multiple episodes of watery diarrhea, generalized abdominal pain. He was recently placed on antibiotics for Pseudomonas pneumonia, was treated with Levaquin and previously treated with amoxicillin. CT AP
showing progression of abdominal lymphadenopathy. We are consulted for eval 11/30/23.
Subacute diarrhea x 1 week
Suspect acute gastroenteritis
N/V, abdominal pain
Recent abx use
Leukocytosis
Hypokalemia
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
Chronic cough
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
CLL, follows with [facility]
Chronic fatigue
COPD with moderate obstruction
Emphysema
History of lung cancer status post resection 2003
Allergic rhinitis
Recurrent pneumonia
CHF
Former smoker
Pulmonary nodules s/p bronchoscopy 06/02/23 (PNA)
Plan
Respiratory status slowly improving-somewhat tenuous overnight
Supplemental oxygen as needed
Assess discharge supplemental oxygen needs-the patient did not need home oxygen on prior 6-minute walk test completed in the office
Continue inhalers
Prior history of lung disease is noted including
He has had numerous episodes of recurrent pneumonia, treated with antibiotics in the past 6 months.
Pseudomonas x 2, LVQ x 2 rounds
MSSA completed Ancef
Achromobacter, treated with Bactrim
IgG levels are low, planning for outpatient IVIG treatment
COPD history, moderate obstruction on last PFT
JENNIFER severe-recently placed on CPAP but could not tolerate
He is working on compliance
Resume while inpatient
Suspect patient has enterocolitis, unclear cause
C diff negative, has been positive in past
Could be side effects from Abx but CT AP showing worsening lymphadenopathy
We discussed second opinion from [facility] on treatment
Had been followed yearly with [facility] with no plans for treatment per patient
GI consult as well
CXR/CT obtained indicating bilateral opacities which are always present
Recurrent PNA an issue
We can repeat sputum cultures as OP but we have discussed holding on further abx for now due to diarrhea
CHF, AFib history
Prior ECHO results are reviewed indicating normal function
Patient resumed home cardiac medications
Overall patient has numerous serious conditions all contributing to his issues
He has had many complications and deterioration in health over the course of the last 6 months
Difficult situation
He is DNR
DVT prophylaxis-on Eliquis
GI prophylaxis-on Pepcid
Outpatient pulmonary follow-up
Diagnostic Data
Chest X-Ray: 11/29/23- . Patchy opacities in the bilateral lung bases again suspicious for pneumonia or other atypical infectious process.
2. Small bilateral pleural effusions.
3. Chronic obstructive pulmonary disease.
CT Scan: AP 11/29/23- . Progression of lymphadenopathy in the abdomen and pelvis compared to the previous CT from 09/23/2021 compatible with worsening of the patient's known lymphoma, including enlarged lymph nodes in the portacaval, periportal,
retroperitoneal, bilateral iliac and inguinal lymph node stations.
2. Splenomegaly.
3. Mild abdominal ascites.
4. Suspicion for a mild diffuse infectious or inflammatory enterocolitis. Fluid attenuation in the colon and rectum suggesting a diarrheal illness.
5. Small right and trace left pleural effusions.
6. Mild bibasilar opacities may represent pneumonia or atelectasis.
CHEST 08/04/23- .). Patchy linear and nodular lingular and bilateral lower lobe pneumonia has worsened in the interval since the prior study
2). Mediastinal and bilateral axillary lymphadenopathy has worsened in the interval since the prior study
3). There is moderate emphysema
4). There is mild cardiomegaly
Echo: 09/06/23- Normal biventricular size and systolic function without regional wall motion abnormality. Estimated LVEF 50-55%. Mild to moderate tricuspid regurgitation. No thrombus detected in the left atrial appendage.
No prior study available for comparison.
PFT's:
.
Subjective Data
-
Date of Service:
Date of Service: December 02, 2023
Chief Complaint: Pulmonary Follow Up
Subjective:
Feels better this morning, had an episode last night where he was short of breath and coughing, no chest pain, minimal productive cough, no abdominal pain, chronic left greater than right lower extremity swelling
Review of Systems
General: Other (Per HPI)
Objective Data
Data Reviewed
Vital Signs / I&O:
Vital Signs
Temp Pulse Resp BP Pulse Ox
97.3 F 76 14 130/91 94
12/02/23 07:00 12/02/23 12:03 12/02/23 08:21 12/02/23 12:03 12/02/23 08:21
Intake and Output
12/01/23 12/02/23 12/03/23
06:59 06:59 06:59
Intake Total 1200 / 1200 1440 / 1440
Balance 1200 / 1200 1440 / 1440
SaO2: 94
Physical Exam
General: Respiratory Distress (n), Comfortable and Other (NAD)
HEENT: Normocephalic, Anicteric and Moist Mucous Membranes
Cardiovascular: Regular Rhythm
Respiratory: Rhonchi (chronic cough) and Non-Labored Respirations
GI: Soft, Non Distended and Non Tender
Neurology: Awake, Alert and No Motor Deficits
Skin: Warm, Good Color, Cyanosis (n), Jaundice (n) and Rash (n)
Labs/Micro/Reports
Lab Data
12/02/23 07:55
12/02/23 07:55
Microbiology
11/29/23 18:41 Feces/Stool Salmonella/Shigella Culture - Final
No Salmonella, Shigella, Aeromonas or Plesiomonas species
isolated.
11/29/23 18:41 Feces/Stool Campylobacter Culture - Final
No Campylobacter species isolated.
11/29/23 18:41 Feces/Stool Shiga Toxin Test - Final
No E. coli Shiga Toxin 1 or 2 detected.
12/01/23 04:04 Feces/Stool Cryptosporidium/Giardia - Final
Negative for Cryptosporidium and/or Giardia Lamblia
antigens.
11/29/23 23:22 Nose MRSA Screen - Final
Staph aureus MRSA
11/30/23 23:20 Urine Legionella Urinary Antigen - Final
Negative for Legionella pneumophila Serogroup 1 antigen.
A negative result does not rule out the possiblity of
Legionella infection due to other serogroups or species of
Legionella. Clinical correlation is recommended.
11/29/23 18:41 Feces/Stool - Final
Negative for Norovirus GI and GII.
11/29/23 18:41 Feces/Stool C. difficile GDH Antigen & Toxins - Final
Negative for toxigenic C.difficile
[2023-12-02 15:00] VITALS: BP 110/67
--- NOTE | 2023-12-02 17:27 | W.PN.HOSP.TC ---
Addendum entered and electronically signed by Good Lopez MD 12/02/23 17:38:
Pt c/o runny nose, we do not carry Flonase, he thought nasal saline worsened. Will write for Claritin
Original Note:
Today's Communication/Plan
-
cbc in AM
Assessment / Plan
Assessment / Plan
87-year-old male past medical history of paroxysmal atrial fibrillation/flutter, coronary artery disease status post stents, cardiac amyloid, restrictive cardiomyopathy, COPD, GI bleeding, chronic hypotension, complete heart block status post
dual-chamber pacemaker, lung cancer status post lobectomy, CLL, BPH, GERD, right gluteal hematoma/right greater trochanteric hematoma presenting with diarrhea since Monday and vomiting since today. He has had multiple episodes of watery diarrhea
and multiple episodes of vomiting. He has some generalized abdominal pain. He denies any fevers or chills.
He denies any recent travel, eating any restaurant or eating any democrat food. He denies any sick contacts.
Patient has been treated with multiple courses of antibiotics for recurrent Pseudomonas pneumonia over the past year. On admission was currently 3 days into Levaquin followed by 10 days of amoxicillin in the current course. He continues to have
shortness of breath and cough with productive sputum. 12/01 Diarrhea has resolved on Questran and Probiotic. Unclear as to why WBC has increased. If this normalizes, potential dc tomorrow
# Sepsis (leukocytosis, tachypnea ) secondary to infectious enterocolitis
Etiology of process unclear, doing better on current Tx
WBC 25.6-->15.9-->10.6-->14.2k
unclear as to why increase in WBC. Will recheck in AM
-CT abdomen pelvis: 1. Progression of lymphadenopathy in the abdomen and pelvis compared to the previous CT from 09/23/2021 compatible with worsening of the patient's known lymphoma, including enlarged lymph nodes in the portacaval, periportal,
retroperitoneal, bilateral iliac and inguinal lymph node stations.
2. Splenomegaly.
3. Mild abdominal ascites.
4. Suspicion for a mild diffuse infectious or inflammatory enterocolitis. Fluid attenuation in the colon and rectum suggesting a diarrheal illness.
5. Small right and trace left pleural effusions.
6. Mild bibasilar opacities may represent pneumonia or atelectasis.
-C. difficile neg, stool culture NGTD, norovirus negative
-Patient given p.o. vancomycin initially in er due to presumptive dx, will not resume
-pt would like to eat, will order a diet, but told him he needs to be 'easy' on the eating and if starts to feel nauseous, needs to stop
-IV fluids to be stopped
CLL: CT scan of chest demonstrates lymphadenopathy
pt has been seen by [facility] and will need outpt follow up
# Recurrent Pseudomonas pneumonia
-Chest x-ray shows patchy opacities in the bilateral lung bases again suspicious for pneumonia or atypical infectious process small bilateral pleural effusions,
-Currently day 3 of Levaquin in current course, continue
Pt followed by Dr. Scarlett Cooper, input appreciated. Pt was suppose to get CT scan of chest yesterday, prior to becoming sick,
CT scan of chest:1. Small bilateral pleural effusions, right greater than left.
2. Bibasilar atelectasis and infectious/inflammatory bronchiolitis change.
3. Grossly stable extensive mediastinal and bilateral axillary lymphadenopathy in keeping with lymphoma.
Paroxysmal atrial fibrillation/flutter
-Continue Eliquis
-Continue sotalol
Coronary artery disease status post stents
Cardiac amyloid/restrictive cardiomyopathy
-Hold Lasix
-Continue vyndamax
History of complete heart block status post dual-chamber pacemaker
COPD
-Continue inhalers
History of GI bleed/diverticulosis/hemorrhoids/IBS
History of blood loss anemia
Chronic hypotension
-Continue midodrine
Lung cancer status post lobectomy
CLL
-Not currently on treatment. As per Onc: 'CLL, with slight lymphocytosis and lymphadenopathy/splenomegaly, followed yearly at [facility], no treatment
Hypogammoglobulinemia, secondary to CLL, with recurrent bronchopulmonary infections'
History of right gluteal/right greater trochanteric hematoma
BPH
-Continue finasteride, tamsulosin
GERD
-Continue famotidine
Ex-smoker
DNR/DNI
DVT prophylaxis�Eliquis
will start LRD
Anticipated Discharge: 24 - 48 hours
Subjective/Interval History
-
Date of Service: December 02, 2023
Pt requesting nasal spray
Objective Data
-
Labs:
Laboratory Results
12/02/23
07:55
WBC 14.2 H
Hgb 14.0
Hct 44.4
Plt Count 195
Sodium 141
Potassium 4.0
Chloride 111 H
Carbon Dioxide 25
BUN 16
Creatinine 0.9
Glucose 88
Calcium 9.2
Vital Signs:
Vital Signs
Temp Pulse Resp BP Pulse Ox
97.9 F 78 18 138/85 95
12/02/23 15:00 12/02/23 16:44 12/02/23 15:00 12/02/23 16:44 12/02/23 15:00
I&O
12/01/23 12/02/23 12/03/23
06:59 06:59 06:59
Intake Total 1200 / 1200 1440 / 1440
Balance 1200 / 1200 1440 / 1440
Review of Systems
-
History Source: Patient
Constitutional: Denies Fever
EENT: Reports No Symptoms Reported
Respiratory: Reports Cough
Cardiac: Reports No Symptoms; Denies Chest Pain
Abdomen/GI: Reports Diarrhea (severe watery diarrhea, has resolved); Denies Nausea or Vomiting
Physical Exam
-
General: Well Developed, Well Nourished and Conversant
HEENT: Normocephalic, Atraumatic and Moist Mucous Membranes
Respiratory: Other (coarse BS with recurrent rhonchus cough)
Cardiac: Regular Rhythm and S1/S2
GI: Soft, Nontender and Nondistended
Musculoskeletal: No Clubbing, No Cyanosis and No Edema
[2023-12-02] MEDS: CLARITIN 10 MG PO (17:53)
[2023-12-02 19:05] VITALS: BP 116/64
[2023-12-02] MEDS: PEPCID 20 MG PO (20:59)
[2023-12-02 23:20] VITALS: BP 135/74
[2023-12-03 03:05] VITALS: BP 128/70
[2023-12-03 06:00] VITALS: BMI 25.2
[2023-12-03 07:41] VITALS: BP 117/74
[2023-12-03 07:47] LABS: Hemoglobin 13.3 g/dL (13.0-18.0); Mean Corp Hgb Conc. 31.7 g/dL (33.0-37.0); Mean Corpuscular Hgb 28.2 pg (27.0-31.0); Mean Platelet Volume 11.2 fL (7.4-10.4); Platelet Count 164 10^3/uL (130-400); Red Blood Cell Count 4.72 10^6/uL (4.70-6.10); Red Cell Dist. Width 14.6 % (11.5-14.5); White Blood Cell Count 13.5 10^3/uL (4.8-10.8)
[2023-12-03] MEDS: VENTOLIN NEBULES 2.5 MG INH (08:10)
[2023-12-03] MEDS: ADVAIR HFA 230/21 MCG INHALER 2 PUFF INH (08:11)
[2023-12-03] MEDS: ELIQUIS 5 MG PO (08:30)
[2023-12-03] MEDS: LEVAQUIN 500 MG PO (08:30)
[2023-12-03] MEDS: THERAGRAN 1 TABLET PO (08:30)
[2023-12-03] MEDS: VISBIOME 1 CAP PO (08:30)
[2023-12-03] MEDS: FLOMAX 0.4 MG PO (08:30)
[2023-12-03] MEDS: BETAPACE 40 MG PO (08:30)
[2023-12-03] MEDS: PROSCAR 5 MG PO (08:30)
[2023-12-03] MEDS: CLARITIN 10 MG PO (08:30)
[2023-12-03] MEDS: ProAmatine 5 MG PO ×2 (08:31→11:45)
[2023-12-03] MEDS: OCEAN, SALINE MIST 1 SPRAYS NASAL (08:35)
[2023-12-03] MEDS: ROBITUSSIN 200 MG PO (08:38)
[2023-12-03 09:01] LABS: % Basophils 0.2 % (0-2); % Eosinophils 0.8 % (0-6); % Immature Granulocytes 0.3 % (0-0.5); % Lymphocytes 65.5 % (20.5-51.1); % Monocytes 5.8 % (1.7-9.3); % Neutrophils 27.4 % (42.2-75.2); Absolute Eosinophils 0.1 10^3/uL (0-0.7); Absolute Lymphocytes 8.8 10^3/uL (1.2-3.4); Absolute Monocytes 0.8 10^3/uL (0.1-0.6); Absolute Neutrophils 3.7 10^3/uL (1.4-6.5); Nucleated Red Blood Cells % 0 % (-)
[2023-12-03] MEDS: QUESTRAN 4 GRAM PO (09:52)
--- NOTE | 2023-12-03 11:09 | W.PN.HOSP.TC ---
Today's Communication/Plan
-
dc to home
Assessment / Plan
Assessment / Plan
87-year-old male past medical history of paroxysmal atrial fibrillation/flutter, coronary artery disease status post stents, cardiac amyloid, restrictive cardiomyopathy, COPD, GI bleeding, chronic hypotension, complete heart block status post
dual-chamber pacemaker, lung cancer status post lobectomy, CLL, BPH, GERD, right gluteal hematoma/right greater trochanteric hematoma presenting with diarrhea since Monday and vomiting since today. He has had multiple episodes of watery diarrhea
and multiple episodes of vomiting, vomiting has stopped. He has some generalized abdominal pain, markedly lessened. He denies any fevers or chills.
He denies any recent travel, eating any restaurant or eating any libertarian food. He denies any sick contacts.
Patient has been treated with multiple courses of antibiotics for recurrent Pseudomonas pneumonia over the past year. On admission was currently 3 days into Levaquin followed by 10 days of amoxicillin in the current course. He continues to have
shortness of breath though lessened and cough with productive sputum. 12/01 Diarrhea has markedly improved, not quite resolved on Questran and Probiotic. Unclear as to why WBC has increased.
# Sepsis (leukocytosis, tachypnea ) secondary to infectious enterocolitis
Etiology of process unclear, doing better on current Tx
WBC 25.6-->15.9-->10.6-->14.2-->13.5k
-CT abdomen pelvis: 1. Progression of lymphadenopathy in the abdomen and pelvis compared to the previous CT from 09/23/2021 compatible with worsening of the patient's known lymphoma, including enlarged lymph nodes in the portacaval, periportal,
retroperitoneal, bilateral iliac and inguinal lymph node stations.
2. Splenomegaly.
3. Mild abdominal ascites.
4. Suspicion for a mild diffuse infectious or inflammatory enterocolitis. Fluid attenuation in the colon and rectum suggesting a diarrheal illness.
5. Small right and trace left pleural effusions.
6. Mild bibasilar opacities may represent pneumonia or atelectasis.
-C. difficile neg, stool culture NGTD, norovirus negative
-Patient given p.o. vancomycin initially in er due to presumptive dx, will not resume
-pt would like to eat, will order a diet, but told him he needs to be 'easy' on the eating and if starts to feel nauseous, needs to stop
-IV fluids to be stopped
CLL: CT scan of chest demonstrates lymphadenopathy
pt has been seen by [facility] and will need outpt follow up
# Recurrent Pseudomonas pneumonia
-Chest x-ray shows patchy opacities in the bilateral lung bases again suspicious for pneumonia or atypical infectious process small bilateral pleural effusions,
-Currently day 3 of Levaquin in current course, continue
Pt followed by Dr. Scarlett Cooper, input appreciated. Pt was suppose to get CT scan of chest yesterday, prior to becoming sick,
CT scan of chest:1. Small bilateral pleural effusions, right greater than left.
2. Bibasilar atelectasis and infectious/inflammatory bronchiolitis change.
3. Grossly stable extensive mediastinal and bilateral axillary lymphadenopathy in keeping with lymphoma.
Paroxysmal atrial fibrillation/flutter
-Continue Eliquis
-Continue sotalol
Coronary artery disease status post stents
Cardiac amyloid/restrictive cardiomyopathy
-Hold Lasix
-Continue vyndamax
History of complete heart block status post dual-chamber pacemaker
COPD
-Continue inhalers
History of GI bleed/diverticulosis/hemorrhoids/IBS
History of blood loss anemia
Chronic hypotension
-Continue midodrine
Lung cancer status post lobectomy
CLL
-Not currently on treatment. As per Onc: 'CLL, with slight lymphocytosis and lymphadenopathy/splenomegaly, followed yearly at [facility], no treatment
Hypogammoglobulinemia, secondary to CLL, with recurrent bronchopulmonary infections'
History of right gluteal/right greater trochanteric hematoma
BPH
-Continue finasteride, tamsulosin
GERD
-Continue famotidine
Ex-smoker
DNR/DNI
DVT prophylaxis�Eliquis
will start LRD
will dc now
follow up with multiple doctors
reviewed with dgt at computer
More than 30 minutes spent in discharge including
Final examination of the patient
Summarizing hospital stay
Instructions for continuing care to all relevant caregivers
Preparation of discharge records, prescriptions, and referral forms
Total time spent (in minutes): 45
Anticipated Discharge: Today
Subjective/Interval History
-
Date of Service: December 03, 2023
still with intermittent diarrhea episodes, but significantly lessened since admission
Objective Data
-
Labs:
Laboratory Results
12/03/23
06:27
WBC 13.5 H
Hgb 13.3
Hct 42.0
Plt Count 164
Vital Signs:
Vital Signs
Temp Pulse Resp BP Pulse Ox
97.2 F 82 14 117/74 94
12/03/23 07:41 12/03/23 08:30 12/03/23 08:17 12/03/23 08:30 12/03/23 08:30
I&O
12/02/23 12/03/23 12/04/23
06:59 06:59 06:59
Intake Total 1440 / 1440 1480 / 1480 200 / 200
Balance 1440 / 1440 1480 / 1480 200 / 200
Review of Systems
-
History Source: Patient
Constitutional: Denies Fever
EENT: Reports No Symptoms Reported
Respiratory: Reports Cough
Cardiac: Reports No Symptoms; Denies Chest Pain
Abdomen/GI: Reports Diarrhea (severe watery diarrhea, has resolved, still loose stools); Denies Nausea or Vomiting
Physical Exam
-
General: Well Developed, Well Nourished and Conversant
HEENT: Normocephalic, Atraumatic and Moist Mucous Membranes
Respiratory: Other (coarse BS with recurrent rhonchus cough)
Cardiac: Regular Rhythm and S1/S2
GI: Soft, Nontender and Nondistended
Musculoskeletal: No Clubbing, No Cyanosis and No Edema
Psych: Calm and Intact Judgement/Insight
[2023-12-03 11:42] VITALS: BP 122/76
--- NOTE | 2023-12-03 11:46 | W.PN.PUL.V3 ---
Today's Communication / Plan
-
Wean oxygen
Mucolytic's
Nebulizers
Advair
Outpatient pulmonary follow-up
Assessment
-
Patient is an 87-year-old male with previous history of PAF, CAD status post stents, cardiac amyloid, CLL, CHB status post PPM, recurrent pneumonias, COPD, CHF presenting with subacute diarrhea since Monday associated with nausea and vomiting that
began in the past 24 hours. He notes multiple episodes of watery diarrhea, generalized abdominal pain. He was recently placed on antibiotics for Pseudomonas pneumonia, was treated with Levaquin and previously treated with amoxicillin. CT AP
showing progression of abdominal lymphadenopathy. We are consulted for eval 11/30/23.
Subacute diarrhea x 1 week
Suspect acute gastroenteritis
N/V, abdominal pain
Recent abx use
Leukocytosis
Hypokalemia
Conditions present QUILT STUFFER:
Chronic cough
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
CLL, follows with [facility]
Chronic fatigue
COPD with moderate obstruction
Emphysema
History of lung cancer status post resection 2003
Allergic rhinitis
Recurrent pneumonia
CHF
Former smoker
Pulmonary nodules s/p bronchoscopy 06/02/23 (PNA)
Plan
Respiratory status slowly improving
Supplemental oxygen as needed
Assess discharge supplemental oxygen needs-the patient did not need home oxygen on prior 6-minute walk test completed in the office
Continue inhalers
Prior history of lung disease is noted including
He has had numerous episodes of recurrent pneumonia, treated with antibiotics in the past 6 months.
Pseudomonas x 2, LVQ x 2 rounds
MSSA completed Ancef
Achromobacter, treated with Bactrim
IgG levels are low, planning for outpatient IVIG treatment
COPD history, moderate obstruction on last PFT
JENNIFER severe-recently placed on CPAP but could not tolerate
He is working on compliance
Resume while inpatient
Suspect patient has enterocolitis, unclear cause
C diff negative, has been positive in past
Could be side effects from Abx but CT AP showing worsening lymphadenopathy
We discussed second opinion from [place] on treatment
Had been followed yearly with [facility] with no plans for treatment per patient
GI consult as well ongoing
CT abdomen and pelvis with progressive lymphadenopathy
CXR/CT obtained indicating bilateral opacities which are always present
Recurrent PNA an issue
We can repeat sputum cultures as OP but we have discussed holding on further abx for now due to diarrhea
CHF, AFib history
Prior ECHO results are reviewed indicating normal function
Patient resumed home cardiac medications
Overall patient has numerous serious conditions all contributing to his issues
He has had many complications and deterioration in health over the course of the last 6 months
Difficult situation
He is DNR
DVT prophylaxis-on Eliquis
GI prophylaxis-on Pepcid
Outpatient pulmonary follow-up
Diagnostic Data
Chest X-Ray: 11/29/23- . Patchy opacities in the bilateral lung bases again suspicious for pneumonia or other atypical infectious process.
2. Small bilateral pleural effusions.
3. Chronic obstructive pulmonary disease.
CT Scan: AP 11/29/23- . Progression of lymphadenopathy in the abdomen and pelvis compared to the previous CT from 09/23/2021 compatible with worsening of the patient's known lymphoma, including enlarged lymph nodes in the portacaval, periportal,
retroperitoneal, bilateral iliac and inguinal lymph node stations.
2. Splenomegaly.
3. Mild abdominal ascites.
4. Suspicion for a mild diffuse infectious or inflammatory enterocolitis. Fluid attenuation in the colon and rectum suggesting a diarrheal illness.
5. Small right and trace left pleural effusions.
6. Mild bibasilar opacities may represent pneumonia or atelectasis.
CHEST 08/04/23- .). Patchy linear and nodular lingular and bilateral lower lobe pneumonia has worsened in the interval since the prior study
2). Mediastinal and bilateral axillary lymphadenopathy has worsened in the interval since the prior study
3). There is moderate emphysema
4). There is mild cardiomegaly
Echo: 09/06/23- Normal biventricular size and systolic function without regional wall motion abnormality. Estimated LVEF 50-55%. Mild to moderate tricuspid regurgitation. No thrombus detected in the left atrial appendage.
No prior study available for comparison.
PFT's:
.
Subjective Data
-
Date of Service:
Date of Service: December 03, 2023
Chief Complaint: Pulmonary Follow Up and Dyspnea Follow Up
Subjective:
Complains of diarrhea, no complaints of worsening shortness of breath, increased chest congestion, chest pain, hemoptysis or abdominal pain
Review of Systems
General: Other (Per HPI)
Objective Data
Data Reviewed
Vital Signs / I&O:
Vital Signs
Temp Pulse Resp BP Pulse Ox
98.0 F 71 18 122/76 98
12/03/23 11:42 12/03/23 11:42 12/03/23 11:42 12/03/23 11:42 12/03/23 11:42
Intake and Output
12/02/23 12/03/23 12/04/23
06:59 06:59 06:59
Intake Total 1440 / 1440 1480 / 1480 200 / 200
Balance 1440 / 1440 1480 / 1480 200 / 200
SaO2: 98
Physical Exam
General: Respiratory Distress (n), Comfortable and Other (NAD)
HEENT: Normocephalic, Anicteric and Moist Mucous Membranes
Cardiovascular: Regular Rhythm
Respiratory: Rhonchi (chronic cough) and Non-Labored Respirations
GI: Soft, Non Distended and Non Tender
Neurology: Awake, Alert and No Motor Deficits
Skin: Warm, Good Color, Cyanosis (n), Jaundice (n) and Rash (n)
Labs/Micro/Reports
Lab Data
12/03/23 06:27
12/02/23 07:55
Microbiology
11/29/23 18:41 Feces/Stool Salmonella/Shigella Culture - Final
No Salmonella, Shigella, Aeromonas or Plesiomonas species
isolated.
11/29/23 18:41 Feces/Stool Campylobacter Culture - Final
No Campylobacter species isolated.
11/29/23 18:41 Feces/Stool Shiga Toxin Test - Final
No E. coli Shiga Toxin 1 or 2 detected.
12/01/23 04:04 Feces/Stool Cryptosporidium/Giardia - Final
Negative for Cryptosporidium and/or Giardia Lamblia
antigens.
11/29/23 23:22 Nose MRSA Screen - Final
Staph aureus MRSA
11/30/23 23:20 Urine Legionella Urinary Antigen - Final
Negative for Legionella pneumophila Serogroup 1 antigen.
A negative result does not rule out the possiblity of
Legionella infection due to other serogroups or species of
Legionella. Clinical correlation is recommended.
--- NOTE | 2023-12-03 11:52 | CM ---
Patient seen bedside with daughter, discussed plan for discharge. Referral made to [facility], spoke with [facility], confirmed they can accept patient, faxed to [phone]. IMM reviewed, signed, placed in chart. CM will continue to
follow for all discharge planning needs.
Plan; home with [facility]
--- NOTE | 2023-12-03 12:36 | W.DS.TRANS ---
DC Summary - Regulatory Affairs Specialist
-
Discharge Instructions:
Discharge Diagnosis/Procedures Antibiotic Associated Diarrhea
Diet Low Fiber,Low Residue
Activity No strenuous activity
Driving Restrictions Not until seen by your Dr
Bathing Restrictions None
Blood Work CBC
Other Services VN
Instructions:
Stand-Alone Forms:
Changes to Home Medications: Yes
Discharge Medications:
DC Medications w/original date entered in [facility]
tamsulosin 0.4 mg capsule 0.4 mg PO BID Urinary issue 05/31/12
famotidine 40 mg tablet 40 mg PO HS Gastrointestinal issue 04/15/21
finasteride 5 mg tablet 5 mg PO DAILY Urinary issue 04/15/21
furosemide 20 mg tablet 20 mg PO .2X WEEKLY edema 04/15/21
tafamidis 61 mg capsule (Vyndamax) 61 mg PO DAILY Heart disease/condition 04/15/21
multivitamin 1 tab PO DAILY Supplement 07/13/22
fluticasone 500 mcg-salmeterol 50 mcg/dose blistr powdr for inhalation (Wixela Inhub) 1 inh inhalation R Q12 Lung/Breathing Issues 05/16/23
albuterol sulfate 2.5 mg/3 mL (0.083 %) solution for nebulization 2.5 mg inhalation R BID Lung/Breathing Issues 09/06/23
fluorouracil 5 % topical cream 1 applic topical DAILY PRN skin care 09/06/23
ipratropium bromide 21 mcg (0.03 %) nasal spray 2 spray intranasal BID Allergies 09/06/23
sotalol 80 mg tablet 40 mg PO BID Arrhythmia 09/06/23
apixaban 5 mg tablet (Eliquis) 5 mg PO BID Blood clot prevention/tx #0 tabs 09/25/23
zolpidem 5 mg tablet 5 mg PO HSPRN PRN SLEEP #2 tabs 09/25/23
Lactobac no.2-Bifidobac no.1-S. thermo 112.5 billion cell capsule (Visbiome) 1 cap PO .2-3X DAILY Gastrointestinal Issue 11/29/23
albuterol sulfate 90 mcg/actuation aerosol inhaler 2 puff inhalation R Q4HPRN PRN sob/wheezing 11/29/23
levofloxacin 500 mg tablet 500 mg PO DAILY Infection 11/29/23
midodrine 5 mg tablet 5 mg PO TID Blood pressure 11/29/23
cholestyramine (with sugar) 4 gram oral powder (Questran) 4 g PO DAILY #378 grams 12/03/23
Home Medication Changes
Cholestyramine added
Pending Results: No
[2023-12-04 00:08] LABS: IgG 331 mg/dl (700-1600)
[2023-12-04 00:46] LABS: IgA < 50 mg/dl (70-400); IgM < 25 mg/dl (40-230)
== END 2023-12-03 13:08 | disposition home health service (06) | DRG 871 ==
LOC: 4 WEST ACU 19:34
PROVIDERS: Nurse Practitioner; ADMITTING PHYSICIAN Hospitalist; ATTENDING PHYSICIAN Internal Medicine; CONSULT PHYSICIAN Internal Medicine; CONSULT PHYSICIAN Internal Medicine Gastroenterology; EMERGENCY PHYSICIAN Emergency Medicine; FAMILY PHYSICIAN Family Medicine; OTHER PHYSICIAN Internal Medicine Hematology & Oncology
DX: A41.9 Sepsis, unspecified organism (principal); J15.1 Pneumonia due to Pseudomonas; C91.10 Chronic lymphocytic leukemia of B-cell type not having achieved remission; J44.0 Chronic obstructive pulmonary disease with (acute) lower respiratory infection; E85.4 Organ-limited amyloidosis; I43 Cardiomyopathy in diseases classified elsewhere; A09 Infectious gastroenteritis and colitis, unspecified; I48.0 Paroxysmal atrial fibrillation; I25.10 Atherosclerotic heart disease of native coronary artery without angina pectoris; I45.9 Conduction disorder, unspecified; Z95.0 Presence of cardiac pacemaker; E87.6 Hypokalemia
CPT/HCPCS: 71046; 71250; 74177; 80048; 80053; 81003; 82784; 83735; 84439; 84443; 85025; 86709; 87045; 87046; 87070; 87147; 87324; 87328; 87329; 87427; 87449; 87798; 93005; 94640; 96360; 97162; 99285; Q9967

== ENCOUNTER 2023-12-07 09:58 | Emergency (ER) | payer MEDICARE, OTHER, SELFPAY ==
[2023-12-07] VITALS (8 sets, daily range): BP systolic 98–126; BP diastolic 71–102
[2023-12-07] MEDS: NSS 1000 IV (10:49)
--- NOTE | 2023-12-07 11:01 | ED.GENMED ---
History of Present Illness
<Myra Ely PA-C - Last Filed: 12/07/23 23:04>
General
Chief Complaint: Abdominal Symptoms
Source: patient
Exam Limitations: none
Time Seen by Provider: 12/07/23 10:36
Nursing documentation reviewed up to this point in time: agreed with
History of Present Illness
History of Present Illness:
Patient is a 87-year-old male with history atrial fibrillation on Eliquis, CAD, hypertension, CLL presenting to the emergency department for evaluation of recurrent diarrhea. Patient was recently discharged on 12/03/23 after a 4-day admission in the
hospital for sepsis secondary to enteric colitis presumed to be from antibiotics patient was taking for a pneumonia. Patient was instructed to return to the emergency department with any returning diarrhea.
Patient states since discharge he was doing better until last night in the middle the night he had 5 episodes of severe diarrhea. Patient denies any hematochezia. Patient denies any associated fevers, chills, nausea, or vomiting. He does report
mild intermittent crampy abdominal discomfort and low appetite.
Patient denies any dizziness, lightheadedness, chest pain, or shortness of breath, headache.
Patient does still have a lingering cough with pneumonia for which pulmonary medicine is watching closely and will be following patient. There is no plan for current antibiotic use at this time.
Past History
<Myra Ely PA-C - Last Filed: 12/07/23 23:04>
Past History
ED Past Medical History: Arrthythmia (afib), CAD, Cancer (lung, Skin Cancer, CLL, ), COPD, HTN, Hypercholesterolemia and Other (BPH, Colitis, GI bleeding. Back and neck pain, PNA, Diverticulitis, IBS, Renal calulus, )
ED Past Surgical History: Cardiac (Stent, ablation 01/29/19 at [facility], pacemaker), Cholecystectomy, Orthopedic (Trigger finger, Right carpal tunnel, ) and Other (!/3 of R lung removed for CA, Cataracts. Right hernia repair, )
Social History
Tobacco: Former smoker
Alcohol: Occasional
Personal:
Living: with family
Family History
Family History: Other (Noncontributory)
Review of Systems
<Myra Ely PA-C - Last Filed: 12/07/23 23:04>
Review of Systems
Allergies reviewed?: Yes
All Other Systems: ROS reviewed and negative except as documented in HPI and ROS
Phy Exam
<Myra Ely PA-C - Last Filed: 12/07/23 23:04>
Physical Exam
Physical Exam:
Vitals: Patient's vital signs are stable. Afebrile
General: Patient is well appearing, no acute distress. Nontoxic-appearing
Skin: Warm and dry, no rashes or lesions
Head: Normocephalic, atraumatic
Eyes: Erythema of left sclera with mild purulent drainage. No proptosis. EOM intact bilaterally without pain. No nystagmus.
Throat: Protecting airway.
Neck: Normal ROM, no cervical spine tenderness, no meningismus. No JVD
Cardiac: Regular rate and rhythm, no murmurs.
Pulm: Normal respiratory effort, no wheezes, rales, rhonchi heard on exam.
Abdomen: Abdomen soft with mild tenderness in right abdomen. No rebound tenderness or guarding. No CVA tenderness
Extremities: No evidence of cyanosis or edema. Great distal pulses
Neuro: AAOx3. CN II-XII intact. No focal neurologic deficits.
Psychiatric: Normal affect.
Course
<Myra Ely PA-C - Last Filed: 12/07/23 23:04>
Orders/Labs/Results
Orders:
Orders
12/07/23 10:37
CMP [Comprehensive Metabolic Panel] Urgent
Complete Blood Count/With Diff Urgent
12/07/23 10:46
0.9% Sodium Chloride 1000 ml [Nss] 1,000 ml IV BOLUS
12/07/23 11:27
Add On- LAB Urgent
Tests Added?: lactic acid
12/07/23 11:28
CT Abd/Pel (IV only)-[facility] only Urgent
Comment: recent admission for inflammatory colitis
Reason For Exam: Right abdominal pain, +diarrhea
12/07/23 12:11
Lactic Acid Urgent
12/07/23 13:49
Urinalysis Reflex To Culture Urgent
Date Specimen was Collected: 12/07/23
Time Specimen was Collected: 13:42
Abnormal Lab Results
12/07/23 12/07/23
10:37 13:49
WBC 17.8 H 10^3/uL
(4.8-10.8)
MCHC 31.8 L g/dL
(33.0-37.0)
RDW 14.6 H %
(11.5-14.5)
MPV 11.5 H fL
(7.4-10.4)
Abs Immat Gran (auto) 0.1 H 10^3/uL
(0-0.05)
Absolute Lymphs (auto) 10.9 H 10^3/uL
(1.2-3.4)
Absolute Monos (auto) 1.0 H 10^3/uL
(0.1-0.6)
Neutrophils % 32.7 L %
(42.2-75.2)
Lymphocytes % 61.1 H %
(20.5-51.1)
Chloride 112 H mmol/L
(98-107)
Total Protein 5.3 L g/dl
(6.3-8.2)
Urine Bilirubin 1+ A
(Negative)
12/07/23 10:37
12/07/23 10:37
Vital Signs
Initial and Last Documented VS:
Initial Vital Signs
Temp Pulse Resp BP Pulse Ox
98.9 F 70 16 122/71 98
12/07/23 10:00 12/07/23 10:00 12/07/23 10:00 12/07/23 10:00 12/07/23 10:00
Last Documented Vital Signs
Temp Pulse Resp BP Pulse Ox
98.9 F 70 22 124/78 95
12/07/23 10:00 12/07/23 15:00 12/07/23 15:00 12/07/23 15:00 12/07/23 13:30
<Estefany Worrell, DO - Last Filed: 12/09/23 01:28>
Orders/Labs/Results
Orders:
Orders
12/07/23 10:37
CMP [Comprehensive Metabolic Panel] Urgent
Complete Blood Count/With Diff Urgent
12/07/23 10:46
0.9% Sodium Chloride 1000 ml [Nss] 1,000 ml IV BOLUS
12/07/23 11:27
Add On- LAB Urgent
Tests Added?: lactic acid
12/07/23 11:28
CT Abd/Pel (IV only)-[facility] only Urgent
Comment: recent admission for inflammatory colitis
Reason For Exam: Right abdominal pain, +diarrhea
12/07/23 12:11
Lactic Acid Urgent
12/07/23 13:49
Urinalysis Reflex To Culture Urgent
Date Specimen was Collected: 12/07/23
Time Specimen was Collected: 13:42
Abnormal Lab Results
12/07/23 12/07/23
10:37 13:49
WBC 17.8 H 10^3/uL
(4.8-10.8)
MCHC 31.8 L g/dL
(33.0-37.0)
RDW 14.6 H %
(11.5-14.5)
MPV 11.5 H fL
(7.4-10.4)
Abs Immat Gran (auto) 0.1 H 10^3/uL
(0-0.05)
Absolute Lymphs (auto) 10.9 H 10^3/uL
(1.2-3.4)
Absolute Monos (auto) 1.0 H 10^3/uL
(0.1-0.6)
Neutrophils % 32.7 L %
(42.2-75.2)
Lymphocytes % 61.1 H %
(20.5-51.1)
Chloride 112 H mmol/L
(98-107)
Total Protein 5.3 L g/dl
(6.3-8.2)
Urine Bilirubin 1+ A
(Negative)
12/07/23 10:37
12/07/23 10:37
Vital Signs
Initial and Last Documented VS:
Initial Vital Signs
Temp Pulse Resp BP Pulse Ox
98.9 F 70 16 122/71 98
12/07/23 10:00 12/07/23 10:00 12/07/23 10:00 12/07/23 10:00 12/07/23 10:00
Last Documented Vital Signs
Temp Pulse Resp BP Pulse Ox
98.9 F 70 22 124/78 95
12/07/23 10:00 12/07/23 15:00 12/07/23 15:00 12/07/23 15:00 12/07/23 13:30
<Myra Ely PA-C - Last Filed: 12/07/23 23:04>
MDM/Problems Addressed
Differential Diagnosis Includes:
Not limited to: Inflammatory colitis, infectious colitis, ischemic colitis, dehydration, bowel obstruction, diverticulitis, C. difficile
MDM/Problems Addressed:
87 year-old male with history as documented presenting with acute on chronic diarrhea. Recently discharged from the hospital five days ago with presumed inflammatory diarrhea. Stool cultures and C. Diff were negative at that time. Suspected to be
from antibiotics used to treat pneumonia.
Patient presents after multiple episodes of diarrhea last night. No fever, chills, vomiting. Vital signs are stable on arrival. Patient is afebrile. Physical exam as above. Patient is well appearing, in no apparent distress. Heart regular rate and
rhythm. Lungs clear bilaterally. Patient has mild tenderness in right abdomen without any rebound tenderness or guarding. No focal neurologic deficits noted. Patient does have what looks like a mild possible bacterial conjunctivitis of the left eye.
Labs were obtained which show a leukocytosis of 17.8. This is mildly increased from his discharge four days ago. It was 13.5 at discharge. Although patient does have CLL so some degree of leukocytosis is chronic. Chemistry panel is unremarkable.
Urine shows no signs of infection. Given repeat diarrhea and some associated abdominal pain A CT was obtained, which shows no acute abnormalities. Prior inflammatory changes in colon seen on prior CT scan are no longer present. Also noted findings
consistent with improving pneumonia.
Patient was monitored in the emergency department for a few hours. We attempted to obtain a stool culture, although the patient was unable to provide one. He has not had any diarrhea episode since arrival to the emergency department. His vital signs
remain stable. He was given 1 L of IV fluids. Considered leukocytosis although with negative CT and history of CLL I do not suspect this to be secondary to acute infectious process. Patient is afebrile. No indication for admission at this time. Did
discharge patient with supplies for stool culture and lab slip if diarrhea continues. Did consider patients possible mild left bacterial conjunctivitis. No evidence of preorbital cellulitis/orbital cellulitis. Patient does have anabiotic eyedrops at
home. Given recent inflammatory diarrhea likely secondary antibiotic used do not think oral antibiotics at this time is an appropriate choice. Patient was counseled to continue antibiotic eyedrop�s and follow up with primary care/stove mounter
tomorrow for further evaluation if no improvement. Return precautions discuss with patient and patient�s at length. Patient stable for discharge. Patient with attending physician.
Chronic conditions affecting care:
Atrial fibrillation on Eliquis, hypertension, CLL
Acute Exacerbation and/or Progression of Chronic Illness:
N/A
<Myra R. Derham, PA-C - Last Filed: 12/07/23 23:04>
*Radiology
Radiology exam reviewed: preliminary read by ED provider and radiology read reviewed
*Pulse Oximetry
Patient hypoxic: no
*EKG
Interpreted by ED Provider?: NA
*Broiler Chef Or Cook Interpretation
Rate: Broiler Chef Or Cook- N/A
*Critical Care Note
Total Time (30-74mins, 75-104mins- exclusive of procedures): Not Applicable
ED Attending Note
<Myra Ely PA-C - Last Filed: 12/07/23 23:04>
-
Portions of this chart may have been created with voice recognition software.� Occasional wrong word or��sound alike� substitutions may have occurred due to the inherent limitations of voice recognition software.
<Estefany Worrell DO - Last Filed: 12/09/23 01:28>
ED Attending Note
Patient seen and examined by attending physician: Yes
I performed a history and physical exam of patient and discussed management with resident, I reviewed resident's note and agree with documented findings and plan of care.: Yes
ED Attending Note:
I have reviewed and agree with Myra Ely PA-C's history and treatment plan. 87yoM recently admitted for enterocolitis, started on Questran and visibiome which he states he has continued to take as prescribed, negative stool cultures
presenting with 5 episodes of nonbloody diarrhea starting last night. Pt reports lower abdominal pain. No fever or vomiting. Pt states he finished course of antibiotics for pneumonia as well recently. Heart RRR, lungs clear, abdomen soft
nondistended nontender. No LE erythema. Workup only remarkable for leukocytosis 17.8 which was mildly increased from discharge 4 days ago, could be possibly related to history of CLL. CT abdomen/pelvis shows no acute processes. No episodes of
diarrhea in ER. Stable for discharge home with outpatient follow up
Discharge Plan
Departure
Patient Disposition: Home (Routine Discharge)
Date of Disposition: 12/07/23
Time of Disposition: 15:12
Patient with high blood pressure during this ER visit?: No
Condition: Good
Covid-19: Not Applicable
Discharge Problem:
Diarrhea, Acute conjunctivitis of left eye
Instructions: Conjunctivitis ([facility]) ED, Acute Diarrhea
Prescriptions:
No Action
tamsulosin 0.4 MG capsule
0.4 mg PO BID
famotidine 40 MG tablet
40 mg PO HS
furosemide 20 MG tablet
20 mg PO .2X WEEKLY
finasteride 5 MG tablet
5 mg PO DAILY
Vyndamax 61 MG capsule
61 mg PO DAILY
multivitamin Tablet
1 tab PO DAILY
fluticasone propion-salmeterol [Wixela Inhub] 500-50 mcg/dose Blister With Device
1 inh INHALATION R Q12
albuterol sulfate 2.5 mg /3 mL (0.083 %) Solution For Nebulization
2.5 mg INHALATION R BID
sotalol 80 mg Tablet
40 mg PO BID
fluorouracil 5 % Cream
1 applic TOPICAL DAILY PRN (Reason: skin care)
ipratropium bromide 21 mcg (0.03 %) Williams,Non-Aerosol
2 spray INTRANASAL BID
zolpidem 5 mg Tablet
5 mg PO HSPRN PRN (Reason: SLEEP) Qty: 2 0RF
Eliquis 5 mg Tablet
5 mg PO BID Qty: 0 0RF
levofloxacin 500 mg Tablet
500 mg PO DAILY
albuterol sulfate 90 mcg/actuation Hfa Aerosol Inhaler
2 puff INHALATION R Q4HPRN PRN (Reason: sob/wheezing)
Visbiome 112.5 billion cell Capsule
1 cap PO .2-3X DAILY
midodrine 5 mg tablet
5 mg PO TID
cholestyramine (with sugar) [Questran] 4 gram powder
4 g PO DAILY Qty: 378 3RF
Referrals:
Ochoa Serrano, DO [Family Provider] - Tomorrow
Activity Restrictions/Additional Instructions:
RETURN TO THE EMERGENCY DEPARTMENT WITH FEVERS, CHILLS, ABDOMINAL PAIN, PERSISTENT DIARRHEA, INTRACTABLE NAUSEA/VOMITING, BLOODY DIARRHEA, SIGNS OF SEVERE DEHYDRATION, WORSENING IN CURRENT SYMPTOMS, OR ANY OTHER CONCERNS
-As discussed�it is important that you stay well-hydrated. You should take all your medications as prescribed. If diarrhea is persistent you can try OTC antidiarrheals. You should follow-up with a GI doctor and your primary care for further
evaluation/management.
-Continue to use your antibiotic eyedrops in your left eye 3 times a day. If symptoms persist and/or worsen you should follow-up with either your eye doctor or your primary care doctor tomorrow for further evaluation. You may require oral
antibiotics.
Monitor your symptoms closely and return to the emergency department with any acute worsening/new symptoms.
Interventions
Interventions:
*Risk Screen - Suicide Last Done: 12/07/23 10:00
*General Assessment Last Done: 12/07/23 10:00
*Neglect/Abuse Screening Last Done: 12/07/23 10:00
ED- Fall Risk Assessment Last Done: 12/07/23 10:40
*ED COVID-19 Vaccine History Last Done: 12/07/23 15:32
*Nursing Disposition Last Done: 12/07/23 15:32
HB-Tiyhms-Xhpjiiapie Assessment Last Done: 12/07/23 10:40
Discharge Date and Time
Discharge Date/Time: 12/07/23 15:34
Print Language: NIGERIAN
[2023-12-07 11:03] LABS: ALT (SGPT) 15 U/L (0-50); AST (SGOT) 23 U/L (17-59); Albumin 3.5 g/dl (3.5-5.0); Alkaline Phosphatase 64 U/L (38-126); Blood Urea Nitrogen 20 mg/dl (9-20); Calcium 9.1 mg/dl (8.4-10.2); Carbon Dioxide 24 mmol/L (22-30); Chloride 112 mmol/L (98-107); Glucose 95 mg/dl (70-99); Potassium 3.9 mmol/L (3.5-5.1); Sodium 141 mmol/L (135-145); Total Protein 5.3 g/dl (6.3-8.2); eGFR > 60.00
[2023-12-07 11:22] LABS: % Basophils 0.1 % (0-2); % Eosinophils 0.3 % (0-6); % Immature Granulocytes 0.4 % (0-0.5); % Lymphocytes 61.1 % (20.5-51.1); % Monocytes 5.4 % (1.7-9.3); % Neutrophils 32.7 % (42.2-75.2); Absolute Eosinophils 0.1 10^3/uL (0-0.7); Absolute Immature Granulocytes 0.1 10^3/uL (0-0.05); Absolute Lymphocytes 10.9 10^3/uL (1.2-3.4); Absolute Neutrophils 5.8 10^3/uL (1.4-6.5); Hematocrit 43.4 % (39.0-52.0); Hemoglobin 13.8 g/dL (13.0-18.0); Mean Corp Hgb Conc. 31.8 g/dL (33.0-37.0); Mean Corpuscular Hgb 27.9 pg (27.0-31.0); Mean Corpuscular Volume 87.9 fL (80.0-94.0); Mean Platelet Volume 11.5 fL (7.4-10.4); Nucleated Red Blood Cells % 0 % (-); Platelet Count 180 10^3/uL (130-400); Red Blood Cell Count 4.94 10^6/uL (4.70-6.10); Red Cell Dist. Width 14.6 % (11.5-14.5); White Blood Cell Count 17.8 10^3/uL (4.8-10.8)
[2023-12-07 12:38] LABS: Lactic Acid 0.7 mmol/L (0.7-2.0)
[2023-12-07 14:02] LABS: Urine Albumin Trace (Neg - Trace); Urine Bilirubin 1+ (Negative); Urine Character Clear (Clear); Urine Color Yellow; Urine Glucose Negative (Negative); Urine Ketone Negative (Negative); Urine Leukocyte Negative (Negative); Urine Nitrite Negative (Negative); Urine Occult Blood Negative (Negative); Urine Urobilinogen Negative (Neg - 1+)
== END 2023-12-07 15:34 | disposition home or self-care (01) ==
LOC: EMR 09:58
PROVIDERS: Physician Assistant; EMERGENCY PHYSICIAN Emergency Medicine; FAMILY PHYSICIAN Family Medicine
DX: H10.32 Unspecified acute conjunctivitis, left eye (principal); R19.7 Diarrhea, unspecified; I25.10 Atherosclerotic heart disease of native coronary artery without angina pectoris; I10 Essential (primary) hypertension; Z87.891 Personal history of nicotine dependence
CPT/HCPCS: 99285; 96360; 96361; 74177; 80053; 81003; 83605; 85025; Q9967

== ENCOUNTER → 2023-12-08 12:15 | Outpatient (REF) | payer MEDICARE, OTHER, SELFPAY | LOC: HWLAB 12:15 | PROVIDERS: ATTENDING PHYSICIAN Family Medicine | DX: R19.7 Diarrhea, unspecified (principal) | CPT/HCPCS: 87045; 87046; 87077; 87324; 87427; 87449 ==

== ENCOUNTER 2023-12-12 09:52 | Outpatient (RCR) | payer MEDICARE, OTHER, SELFPAY ==
[2023-12-12] VITALS (7 sets, daily range): BP systolic 110–125; BP diastolic 60–76
[2023-12-12] MEDS: TYLENOL 650 MG PO (10:39)
[2023-12-12] MEDS: BENADRYL 50.5 MG IV (10:40)
[2023-12-12] MEDS: SOLU-CORTEF 100 MG IV (10:40)
[2023-12-12] MEDS: GAMMAGARD 300 IV (11:11)
--- NOTE | 2023-12-12 12:35 | W.PN.UPDATE ---
Update Note
- Progress Note Update
12/12/23 12:35
Patient seen in OID at request of OID RN Kajal Novoa due to concern over wound to right forearm. Patient reports being recently admitted to hospital and happened while in hospital. RIght forearm found wrapped in gauze and secured with paper
tape. With permission of patient dressing was removed and areas assessed. No s/s of infection. Reports changes dressing daily and was bleeding this am. From the looks of it seems the wound was related to his top layer of skin being removed.
two areas were noted on posterior forearm. one area approximately [id number] the other [id number]. We discussed keeping the area clean and moist if possible to help with wound healing and educated on s/s of infection. Discussed can purchase petroleum
dressing at [facility] but redressed and put a non adherent dressing on wound.
[2023-12-12] MEDS: NSS 250 IV (12:36)
== END 2023-12-13 10:32 | disposition home or self-care (01) ==
LOC: OID 09:52
PROVIDERS: ATTENDING PHYSICIAN Internal Medicine
DX: D80.1 Nonfamilial hypogammaglobulinemia (principal); D83.9 Common variable immunodeficiency, unspecified
CPT/HCPCS: 96360; 96361; 96365; 96366; 96367; 96374; 96375; J1569

== ENCOUNTER 2023-12-16 17:08 | Inpatient (IN) | payer MEDICARE, OTHER, SELFPAY ==
[2023-12-16] VITALS (8 sets, daily range): BP systolic 107–126; BP diastolic 65–78; BMI 25.3; BMI 23.5
[2023-12-16 14:56] LABS: Hematocrit 47.9 % (39.0-52.0); Hemoglobin 15.2 g/dL (13.0-18.0); Mean Corp Hgb Conc. 31.7 g/dL (33.0-37.0); Mean Corpuscular Hgb 27.4 pg (27.0-31.0); Mean Corpuscular Volume 86.3 fL (80.0-94.0); Platelet Count 246 10^3/uL (130-400); Red Blood Cell Count 5.55 10^6/uL (4.70-6.10); Red Cell Dist. Width 14.6 % (11.5-14.5); White Blood Cell Count 49.6 10^3/uL (4.8-10.8)
[2023-12-16 15:03] LABS: ALT (SGPT) 15 U/L (0-50); AST (SGOT) 20 U/L (17-59); Albumin 3.4 g/dl (3.5-5.0); Alkaline Phosphatase 67 U/L (38-126); Blood Urea Nitrogen 29 mg/dl (9-20); Calcium 9.2 mg/dl (8.4-10.2); Carbon Dioxide 30 mmol/L (22-30); Chloride 103 mmol/L (98-107); Estimated Creatinine Clearance 45 ml/min; Glucose 122 mg/dl (70-99); Potassium 4.4 mmol/L (3.5-5.1); Sodium 138 mmol/L (135-145); Total Bilirubin 1.7 mg/dl (0.2-1.3); Total Protein 5.6 g/dl (6.3-8.2); eGFR > 60.00
[2023-12-16 15:10] LABS: NT-proBNP 10100 pg/ml
--- NOTE | 2023-12-16 15:14 | ED.GENMED ---
History of Present Illness
<Iban Guerrero PA-C - Last Filed: 12/16/23 17:02>
General
Chief Complaint: Breathing Problem
Source: patient
Time Seen by Provider: 12/16/23 14:42
History of Present Illness
History of Present Illness:
87-year-old male with extensive cardiopulmonary past medical history as well as CLL presenting to the emergency department for evaluation of gradually worsening shortness of breath over the last 48 hours accompanied with cough that is intermittently
productive of a gomez sputum, chills and fatigue. Patient states he has not had any fevers but felt as if he has. He notes that he has significant exertional dyspnea and is now even feeling short of breath at rest. He notes lower extremity edema
which is chronic but is not able to tell me if this seems any worse than normal. No known sick contacts, recent travel or recent antibiotics.
Past History
<Iban Guerrero PA-C - Last Filed: 12/16/23 17:02>
Past History
ED Past Medical History: Arrthythmia (afib), CAD, Cancer (lung, Skin Cancer, CLL, ), COPD, HTN, Hypercholesterolemia and Other (BPH, Colitis, GI bleeding. Back and neck pain, PNA, Diverticulitis, IBS, Renal calulus, )
ED Past Surgical History: Cardiac (Stent, ablation 01/29/19 at [facility], pacemaker), Cholecystectomy, Orthopedic (Trigger finger, Right carpal tunnel, ) and Other (!/3 of R lung removed for CA, Cataracts. Right hernia repair, )
Social History
Tobacco: Former smoker
Alcohol: Occasional
Drug: None
Personal:
Living: with family
Family History
Family History: Other (Noncontributory)
Review of Systems
<Iban Guerrero PA-C - Last Filed: 12/16/23 17:02>
Review of Systems
All Other Systems: ROS reviewed and negative except as documented in HPI and ROS
Phy Exam
<Iban Guerrero PA-C - Last Filed: 12/16/23 17:02>
Physical Exam
Physical Exam:
GENERAL: Alert , in no apparent distress thin and appears older than stated age
EYE: conjunctiva clear
NECK: Supple
ENT: o/p clr, mmm.
CARDIAC: Regular rate and rhythm
LUNGS: Scattered Rales, rhonchorous lung sounds, mildly tachypneic but no accessory muscle use
NEUROLOGICAL: Alert and oriented
SKIN: Warm and dry, skin intact.
MUSCULOSKELETAL: well perfused. 3+ pitting edema bilateral lower extremities to the knees
PSYCH: Normal and appropriate interaction.
Scores
<Iban Guerrero PA-C - Last Filed: 12/16/23 17:02>
Heart Failure Risk
Heart Failure Risk Score: Yes
History of Stroke or TIA: No
History of intubation for respiratory distress: No
Heart rate on ED arrival >/= 110: No
SaO2 <90% on arrival on room air: Yes
HR >/=110 during 3min walk test (or too ill to perform test): Yes
ECG has acute ischemic changes: No
Urea >/=12mmol/L (BUN 33.6mg/dL): No
Serum CO2>/=35mmol/L: No
Troponin I or T elevated to NE Level (0.4mg/dL): No
NT-proBNP >/=5,000ng/L (5,000pg/ml): Yes
HF Risk Score: 4
Admission Status: HIGH RISK 26.1% Consider SNF treatment or admission to hospital
Heart Score for Chest Pain Patients
STEMI patient?: Not applicable
Withdrawal Assessment of Alcohol
Withdrawal Assessment Completed?: Not applicable
Rhondalt;Zackery Courtney DO - Last Filed: 12/16/23 16:54>
Heart Failure Risk
HF Risk Score: 4
Admission Status: HIGH RISK 26.1% Consider SNF treatment or admission to hospital
Course
<Iban Guerrero PA-C - Last Filed: 12/16/23 17:02>
Orders/Labs/Results
Orders:
Orders
12/16/23 14:26
ECG [Electrocardiogram (*1)] Urgent
Reason for Study: Shortness of Breath
12/16/23 14:27
EKG- Treatment ONCE
12/16/23 14:31
Complete Blood Count/With Diff Urgent
Comprehensive Metabolic Panel Urgent
NT-proBNP Urgent
12/16/23 14:47
CR Chest Portable - 1 View Urgent
Comment:
Reason For Exam: hypoxia, cough
Reason Study Needs to be Portable: Unable to Transport
12/16/23 15:13
Furosemide [Lasix] 40 mg IV NOW STA
12/16/23 15:14
CefTRIAXone [Rocephin] 1,000 mg IV NOW STA
Doxycycline [Vibramycin] 100 mg PO NOW STA
12/16/23 15:53
COVID-19 Antigen Urgent
Source: Nasal Swab
Lactic Acid Q4H
Comment: CANCEL 2nd LACTIC ACID IF 1st LACTIC ACID IS LESS THAN 2
Blood Culture Routine
DESHAUN Source: Blood/Venous
Specimen Description:
Blood Culture Urgent
DESHAUN Source: Blood/Venous
Specimen Description:
12/16/23 16:12
MRSA Screen Routine
DESHAUN Source: Nose
Specimen Description:
12/16/23 16:18
Vancomycin [Vancocin] 1,500 mg 0.9% Sodium Chloride [Nss] 20 ml 0.9% Sodium Chloride 250 ml [Nss] 250 ml IV NOW
12/16/23 16:43
Admit/Transfer Patient As Directed
Co-Sign Provider:
Level of Care: Inpatient admission
Assign to:: IMU- Intermediate Care
Physician / Group: Loi
Diagnosis: PNA
Reason for Hospitalization: PNA
Expected length of stay greater than two midnights?: Yes
ELOS- Estimated Length of Stay in days: 5
I certify the patient meets the requirements for IP care: Yes
PRN Pain Medication Management As Directed
May give lesser potent ordered pain med per pt: Yes
preference::
Protocol:: Medication orders for pain may be administered in a
manner that supports deferring to patient preference
when the pt is:
- Requesting an ordered lesser potent pain medication.
Least to most potent pain medications are defined
as: acetaminophen < NSAID < tramadol < opioids
(morphine, oxycodone, hydromorphone).
- Requesting a lesser dose of the same medication IF
ORDERED.
- Requesting a less intrusive route of administration
if both routes are prescribed by the provider (PO <
IV).
12/16/23 16:47
Code Status As Directed
Resuscitation Status: Do not resuscitate
Reached after discussion with pt or family/Healthcare POA: Yes
12/16/23 16:48
DNR Bracelet Application ONCE
12/16/23 18:00
Piperacillin/Tazo 3.375 Gram [Zosyn] 3.375 gram in 50 ml IV Q6H
VANCOMYCIN Pharmacy to Dose [VANCOCIN Pharmacy to Dose] 1 each Pharmacy To Prepare [Call Pharmacy To Prepare] 0 ml IV PER PROTOCOL
12/16/23 19:15
Lactic Acid Q4H
Comment: CANCEL 2nd LACTIC ACID IF 1st LACTIC ACID IS LESS THAN 2
Abnormal Lab Results
12/16/23
14:31
WBC 49.6 H* 10^3/uL
(4.8-10.8)
MCHC 31.7 L g/dL
(33.0-37.0)
RDW 14.6 H %
(11.5-14.5)
MPV 11.0 H fL
(7.4-10.4)
Abs Immat Gran (auto) 0.5 H 10^3/uL
(0-0.05)
Absolute Neuts (auto) 19.9 H 10^3/uL
(1.4-6.5)
Absolute Lymphs (auto) 27.6 H 10^3/uL
(1.2-3.4)
Absolute Monos (auto) 1.4 H 10^3/uL
(0.1-0.6)
Immature Gran % 1.0 H %
(0-0.5)
Neutrophils % 40.2 L %
(42.2-75.2)
Lymphocytes % 55.7 H %
(20.5-51.1)
BUN 29 H mg/dl
(9-20)
Glucose 122 H mg/dl
(70-99)
Total Bilirubin 1.7 H mg/dl
(0.2-1.3)
Total Protein 5.6 L g/dl
(6.3-8.2)
Albumin 3.4 L g/dl
(3.5-5.0)
12/16/23 14:31
12/16/23 14:31
Vital Signs
Initial and Last Documented VS:
Initial Vital Signs
Pulse Ox
88
12/16/23 14:21
Last Documented Vital Signs
Temp Pulse Resp BP Pulse Ox
97.6 F 72 29 107/76 96
12/16/23 14:22 12/16/23 16:45 12/16/23 16:45 12/16/23 16:00 12/16/23 16:45
Rhondalt;Zackery Courtney DO - Last Filed: 12/16/23 16:54>
Orders/Labs/Results
Orders:
Orders
12/16/23 14:26
ECG [Electrocardiogram (*1)] Urgent
Reason for Study: Shortness of Breath
12/16/23 14:27
EKG- Treatment ONCE
12/16/23 14:31
Complete Blood Count/With Diff Urgent
Comprehensive Metabolic Panel Urgent
NT-proBNP Urgent
12/16/23 14:47
CR Chest Portable - 1 View Urgent
Comment:
Reason For Exam: hypoxia, cough
Reason Study Needs to be Portable: Unable to Transport
12/16/23 15:13
Furosemide [Lasix] 40 mg IV NOW STA
12/16/23 15:14
CefTRIAXone [Rocephin] 1,000 mg IV NOW STA
Doxycycline [Vibramycin] 100 mg PO NOW STA
12/16/23 15:53
COVID-19 Antigen Urgent
Source: Nasal Swab
Lactic Acid Q4H
Comment: CANCEL 2nd LACTIC ACID IF 1st LACTIC ACID IS LESS THAN 2
Blood Culture Routine
DESHAUN Source: Blood/Venous
Specimen Description:
Blood Culture Urgent
DESHAUN Source: Blood/Venous
Specimen Description:
12/16/23 16:12
MRSA Screen Routine
DESHAUN Source: Nose
Specimen Description:
12/16/23 16:18
Vancomycin [Vancocin] 1,500 mg 0.9% Sodium Chloride [Nss] 20 ml 0.9% Sodium Chloride 250 ml [Nss] 250 ml IV NOW
12/16/23 16:43
Admit/Transfer Patient As Directed
Co-Sign Provider:
Level of Care: Inpatient admission
Assign to:: IMU- Intermediate Care
Physician / Group: Loi
Diagnosis: PNA
Reason for Hospitalization: PNA
Expected length of stay greater than two midnights?: Yes
ELOS- Estimated Length of Stay in days: 5
I certify the patient meets the requirements for IP care: Yes
PRN Pain Medication Management As Directed
May give lesser potent ordered pain med per pt: Yes
preference::
Protocol:: Medication orders for pain may be administered in a
manner that supports deferring to patient preference
when the pt is:
- Requesting an ordered lesser potent pain medication.
Least to most potent pain medications are defined
as: acetaminophen < NSAID < tramadol < opioids
(morphine, oxycodone, hydromorphone).
- Requesting a lesser dose of the same medication IF
ORDERED.
- Requesting a less intrusive route of administration
if both routes are prescribed by the provider (PO <
IV).
12/16/23 16:47
Code Status As Directed
Resuscitation Status: Do not resuscitate
Reached after discussion with pt or family/Healthcare POA: Yes
12/16/23 16:48
DNR Bracelet Application ONCE
12/16/23 18:00
Piperacillin/Tazo 3.375 Gram [Zosyn] 3.375 gram in 50 ml IV Q6H
VANCOMYCIN Pharmacy to Dose [VANCOCIN Pharmacy to Dose] 1 each Pharmacy To Prepare [Call Pharmacy To Prepare] 0 ml IV PER PROTOCOL
12/16/23 19:15
Lactic Acid Q4H
Comment: CANCEL 2nd LACTIC ACID IF 1st LACTIC ACID IS LESS THAN 2
Abnormal Lab Results
12/16/23
14:31
WBC 49.6 H* 10^3/uL
(4.8-10.8)
MCHC 31.7 L g/dL
(33.0-37.0)
RDW 14.6 H %
(11.5-14.5)
MPV 11.0 H fL
(7.4-10.4)
Abs Immat Gran (auto) 0.5 H 10^3/uL
(0-0.05)
Absolute Neuts (auto) 19.9 H 10^3/uL
(1.4-6.5)
Absolute Lymphs (auto) 27.6 H 10^3/uL
(1.2-3.4)
Absolute Monos (auto) 1.4 H 10^3/uL
(0.1-0.6)
Immature Gran % 1.0 H %
(0-0.5)
Neutrophils % 40.2 L %
(42.2-75.2)
Lymphocytes % 55.7 H %
(20.5-51.1)
BUN 29 H mg/dl
(9-20)
Glucose 122 H mg/dl
(70-99)
Total Bilirubin 1.7 H mg/dl
(0.2-1.3)
Total Protein 5.6 L g/dl
(6.3-8.2)
Albumin 3.4 L g/dl
(3.5-5.0)
12/16/23 14:31
12/16/23 14:31
Vital Signs
Initial and Last Documented VS:
Initial Vital Signs
Pulse Ox
88
12/16/23 14:21
Last Documented Vital Signs
Temp Pulse Resp BP Pulse Ox
97.6 F 72 29 107/76 96
12/16/23 14:22 12/16/23 16:45 12/16/23 16:45 12/16/23 16:00 12/16/23 16:45
<Iban Guerrero PA-C - Last Filed: 12/16/23 17:02>
MDM/Problems Addressed
Differential Diagnosis Includes:
Pneumonia, CHF, aspiration, complication from CLL
MDM/Problems Addressed:
87-year-old male presenting to the emergency department for evaluation of cough x 2 days accompanied with worsening shortness of breath. EMS found patient to be hypoxic and was on nasal cannula. Continues on nasal cannula here at 4 L with
saturation around 92%. Rhonchorous lung sounds and Rales on exam. Significant lower extremity edema also noted. Lasix given. I do also suspect a component of pneumonia. Given age and past medical history I do anticipate admission.
Chronic conditions affecting care: Cancer and Other (CHF)
Acute Exacerbation and/or Progression of Chronic Illness: Other (CHF )
<Iban Guerrero PA-C - Last Filed: 12/16/23 17:02>
*Radiology
Radiology exam reviewed: preliminary read by ED provider (lower lung infiltrates vs pulmonary edema)
*Pulse Oximetry
Patient hypoxic: yes
*EKG
Interpreted by ED Provider?: Yes
Comparison EKG: no changes
Heart Rate: 70
Rate: normal
Rhythm: ventricular paced
*Talent Acquisition Coordinator Interpretation
Rate: normal
Rhythm: ventricular paced
*Critical Care Note
Total Time (30-74mins, 75-104mins- exclusive of procedures): Not Applicable
Data Reviewed
Review of Other/Old Records Reveals: Labs, Records, Radiology Studies and Discharge Summary
Source: patient and records
<Iban Guerrero PA-C - Last Filed: 12/16/23 17:02>
Patient Management
Discussion with other providers: Hospitalist
Escalation/DeEscalation of care consider admission/obs:
Patient's chest x-ray consistent with pneumonia versus CHF exacerbation. Pneumonia covered with Rocephin and doxycycline. After discussion with hospitalist they felt it would be best patient be covered with vancomycin and Zosyn. Hospitalist
placed this order. Patient also received 40 mg of Lasix IV for suspected CHF component. Patient remained stable on 4 L via nasal cannula. Hospitalist team accepts for continued evaluation and treatment.
ED Attending Note
<Iban Guerrero PA-C - Last Filed: 12/16/23 17:02>
-
Portions of this chart may have been created with voice recognition software.� Occasional wrong word or��sound alike� substitutions may have occurred due to the inherent limitations of voice recognition software.
<Zackery Courtney DO - Last Filed: 12/16/23 16:54>
ED Attending Note
Patient seen and examined by attending physician: Yes
I performed the substantive portion of visit, reviewed & personally made and approve the management plan that is documented in note by myself or MORENITA.: Yes
ED Attending Note:
I agree with Oscar's note.
Patient presents due to increasing shortness of breath and cough. Patient found to be hypoxic on arrival.
General: Awake, Alert, Oriented X3. No acute distress.
Vitals: unremarkable
Head: Atraumatic
Eyes: Pupils equal, EOMI
Throat: Airway intact, no exudates
Neck: Trachea midline
Lungs: Few crackles bilateral bases
Heart: Regular rate, no murmurs
Abd: Soft, Nontender, No pulsatile mass
Neuro: Nonfocal
Skin: Warm, dry, no rash
Extremities: pulses equal b/l, 2+ edema
Patient presents with peripheral edema, shortness of breath. Chest x-ray seems more consistent with pulmonary edema. Patient provided a dose of Lasix here. In addition the patient has significant change in his white blood cell count. He does
have a history of CLL but he has had a significant jump over the past week or so. Unclear if this is related to an exacerbation of CLL or perhaps infection. Will cover him also with antibiotics for community-acquired pneumonia. Patient will
require hospitalization given significant hypoxia.
Discharge Plan
Departure
Patient Disposition: Admit
Date of Disposition: 12/16/23
Time of Disposition: 15:50
Presentation/result/management discussed w/ accepting MD/DO: Hospitalist
Discharge Problem:
Pneumonia, Acute exacerbation of CHF (congestive heart failure), Hypoxia
Prescriptions:
No Action
tamsulosin 0.4 MG capsule
0.4 mg PO BID
famotidine 40 MG tablet
40 mg PO HS
furosemide 20 MG tablet
20 mg PO .2X WEEKLY
finasteride 5 MG tablet
5 mg PO DAILY
Vyndamax 61 MG capsule
61 mg PO DAILY
multivitamin Tablet
1 tab PO DAILY
fluticasone propion-salmeterol [Wixela Inhub] 500-50 mcg/dose Blister With Device
1 inh INHALATION R Q12
albuterol sulfate 2.5 mg /3 mL (0.083 %) Solution For Nebulization
2.5 mg INHALATION R BID
sotalol 80 mg Tablet
40 mg PO BID
fluorouracil 5 % Cream
1 applic TOPICAL DAILY PRN (Reason: skin care)
ipratropium bromide 21 mcg (0.03 %) [place],Non-Aerosol
2 spray INTRANASAL BID
zolpidem 5 mg Tablet
5 mg PO HSPRN PRN (Reason: SLEEP) Qty: 2 0RF
albuterol sulfate 90 mcg/actuation Hfa Aerosol Inhaler
2 puff INHALATION R Q4HPRN PRN (Reason: sob/wheezing)
Visbiome 112.5 billion cell Capsule
1 cap PO .2-3X DAILY
midodrine 5 mg tablet
5 mg PO TID
Referrals:
Sharon Cooper DO [Family Provider] -
Interventions
Interventions:
*Risk Screen - Suicide Last Done: 12/16/23 14:22
*General Assessment Last Done: 12/16/23 14:22
*Neglect/Abuse Screening Last Done: 12/16/23 14:22
ED- Cardiac Assessment Last Done: 12/16/23 14:33
ED- Pulmonary Assessment Last Done: 12/16/23 14:33
Discharge Date and Time
Print Language: CROATIAN
[2023-12-16 15:42] LABS: % Basophils 0.3 % (0-2); % Lymphocytes 55.7 % (20.5-51.1); % Monocytes 2.8 % (1.7-9.3); % Neutrophils 40.2 % (42.2-75.2); Absolute Basophils 0.2 10^3/uL (0-0.2); Absolute Immature Granulocytes 0.5 10^3/uL (0-0.05); Absolute Lymphocytes 27.6 10^3/uL (1.2-3.4); Absolute Monocytes 1.4 10^3/uL (0.1-0.6); Absolute Neutrophils 19.9 10^3/uL (1.4-6.5); Nucleated Red Blood Cells % 0 % (-)
[2023-12-16] MEDS: LASIX 40 MG IV (15:44)
[2023-12-16] MEDS: VIBRAMYCIN 100 MG PO (15:44)
[2023-12-16] MEDS: ROCEPHIN 1000 MG IV (15:50)
--- NOTE | 2023-12-16 16:03 | HPS.HSE ---
Family Physician
-
Family Physician: Sharon Cooper, DO
Chief Complaint
-
Shortness of breath, cough, fatigue
History of Present Illness
87 y/o M with PMHx:
CLL
Paroxysmal atrial fibrillation
Coronary artery disease
Cardiac amyloidosis
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
Chronic obstructive pulmonary disease
Essential hypertension
h/o pseudomonas PNA
who p/w CC SOB, cough, and fatigue. Patient reports that over the last 1 to 1-1/2 days he has had increased shortness of breath and cough productive of gomez sputum. Denies fevers. He reports he had lower extremity edema since he fell in September.
Recently he has had weight loss as opposed to weight gain. He does report orthopnea. Since discharge from the hospital he denies any nausea vomiting diarrhea or abdominal pain. In the ER the patient was found to be tachypneic and hypoxemic.
Medical History
Past Medical History
Past Medical History: Reports Other (as per HPI)
Past Surgical History: Reports Other (N/A)
Social History
Tobacco: Non-smoker
Alcohol: None
Drug: None
Family History
Family History: Not pertinent
Allergies / Home Medications
Allergies reflects when Allergies were last updated in [facility].
Home Medications with original date entered in [facility]
Allergy/Medication List:
Allergies
Allergy/AdvReac Type Severity Reaction Status Date / Time
levofloxacin [From Levaquin] Allergy Unknown Verified 12/16/23 15:33
Home Medications
tamsulosin 0.4 mg capsule 0.4 mg PO BID Urinary issue 05/31/12
famotidine 40 mg tablet 40 mg PO HS Gastrointestinal issue 04/15/21
finasteride 5 mg tablet 5 mg PO DAILY Urinary issue 04/15/21
furosemide 20 mg tablet 20 mg PO .2X WEEKLY edema 04/15/21
tafamidis 61 mg capsule (Vyndamax) 61 mg PO DAILY Heart disease/condition 04/15/21
multivitamin 1 tab PO DAILY Supplement 07/13/22
fluticasone 500 mcg-salmeterol 50 mcg/dose blistr powdr for inhalation (Wixela Inhub) 1 inh inhalation R Q12 Lung/Breathing Issues 05/16/23
albuterol sulfate 2.5 mg/3 mL (0.083 %) solution for nebulization 2.5 mg inhalation R BID Lung/Breathing Issues 09/06/23
fluorouracil 5 % topical cream 1 applic topical DAILY PRN skin care 09/06/23
ipratropium bromide 21 mcg (0.03 %) nasal spray 2 spray intranasal BID Allergies 09/06/23
sotalol 80 mg tablet 40 mg PO BID Arrhythmia 09/06/23
zolpidem 5 mg tablet 5 mg PO HSPRN PRN SLEEP #2 tabs 09/25/23
Lactobac no.2-Bifidobac no.1-S. thermo 112.5 billion cell capsule (Visbiome) 1 cap PO .2-3X DAILY Gastrointestinal Issue 11/29/23
albuterol sulfate 90 mcg/actuation aerosol inhaler 2 puff inhalation R Q4HPRN PRN sob/wheezing 11/29/23
midodrine 5 mg tablet 5 mg PO TID Blood pressure 11/29/23
Review of Systems
-
History Source: Patient
A 12 point ROS was completed and negative except as noted: Yes
Physical Exam
Vital Signs
Vital Signs
Temp Pulse Resp BP Pulse Ox
97.6 F 70 26 119/76 92
12/16/23 14:22 12/16/23 15:44 12/16/23 15:06 12/16/23 15:44 12/16/23 15:06
Physical Exam
General: Other (.)
Laboratory Results
-
12/16/23 14:31
12/16/23 14:31
Laboratory Results
Total Bilirubin 1.7 mg/dl (0.2-1.3) H 12/16/23 14:31
AST 20 U/L (17-59) 12/16/23 14:31
ALT 15 U/L (0-50) 12/16/23 14:31
Alkaline Phosphatase 67 U/L (38-126) 12/16/23 14:31
Impression/Plan
-
Gen: NAD, AAOx3.
Eyes: EOMI, PERRLA, no scleral icterus.
Neck: supple.
CV: , +S1/S2, no m/r/g.
Resp: rales greatest in the bases, CTAB, no rales, wheezes, or rhonchi.
Abd: +BS, soft, NT, ND
Skin: No rashes.
Neuro: CN 2-12 intact, non-focal.
Psych: Normal mood and affect.
CXR: COPD with increased interstitial and acinar opacities in the mid to lower lung zones, bilaterally with small right pleural effusion. The differential includes congestive heart failure with interstitial and alveolar edema versus pneumonia.
Acute hypoxemic respiratory insufficiency:
-Generally there is one primary process and in this case I believe it is bacterial pneumonia. The patient's history is more consistent with pneumonia than acute congestive heart failure. proBNP noted but I believe this is a byproduct of the
patient's pneumatic process
-With history of Pseudomonas pneumonia will give Zosyn. The patient has had a positive MRSA screen and will give Vanco.
-cont NC O2 support, currently on 4L NC O2, wean as tolerated
-Will c/s pulm
-will also c/s cardiology for opinion on CHF. Note pt was given a dose of 40mg IV Lasix in the ER. Will not continue standing lasix at this time unless directed by cardiology.
Other problems:
CLL
Paroxysmal atrial fibrillation: Cont Sotalol
Coronary artery disease
Cardiac amyloidosis: cont Vyndamax
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
Chronic obstructive pulmonary disease: cont Wixela
Chronic hypotension: cont Midodrine
h/o pseudomonas PNA
Due to the patient's overwhelming burden of pathology his overall prognosis is poor.
DNR - confirmed with pt and family in ER
Lovenox
IMU
[2023-12-16 16:36] LABS: COVID-19 Antigen Negative (Negative)
[2023-12-16] MEDS: VANCOCIN 300 ML IV (16:46)
[2023-12-16] MEDS: VANCOCIN 300 MG IV (16:46)
--- NOTE | 2023-12-16 17:59 | PHA.VAN.IN ---
Assessment
- Assessment
Renal Function: Appears similar to baseline
Maximum Temperature: 97.6
Concomitant Antimicrobials: piperacillin-tazobactam
AUC Dosing Plan
- Dosing Variables
Dosing Weight (kg): 73.3
Dosing CrCl (ml/min): 45
Vd coefficient (L/kg): 0.7
- Empiric Dosing
Initial / Loading Dose: vanc 1500 mg 12/15 1645
Maintenance Regimen: 1000mg iv q24h, to start 12/16/23 in leui of a full loading dose.
Estimated AUC (mcg*h/mL): 477
Estimated Peak (mcg*h/mL): 30.8
Estimated Trough (mcg/ml): 11.8
Estimated Half Life (H): 16.6
- Monitoring
No levels ordered at this time: consider in the upcoming days
MRSA (+) November 2023
Pharmacokinetics Vancomycin I
- -
Patient Age: 87
Patient Sex: Male
Vancomycin Day #: 1
Indication: Pulmonary/Respiratory
Requesting Provider: Dr Monsivais
Pertinent Antimicrobial Allergies:
levofloxacin [From Levaquin] Allergy (Verified 12/16/23 15:33) Unknown
Height / Weight:
Height 5 ft 7 in
Actual Weight 73.3 kg
Pertinent Past Medical History: CLL, h/o pseudomonas PNA
- Vital Signs / Lab Results
Temp Pulse Resp BP Pulse Ox
97.6 F 71 22 116/71 96
12/16/23 14:22 12/16/23 17:30 12/16/23 17:30 12/16/23 17:00 12/16/23 17:30
Lab Results - Hematology
12/16/23
14:31
WBC 49.6 H*
Lab Results - Chemistry
12/16/23
14:31
BUN 29 H
Creatinine 1.1
Estimated Creat Clear 45
Albumin 3.4 L
12/16/23 12/16/23
15:53 19:15
Lactic Acid 1.0 Cancelled
[2023-12-16] MEDS: LOVENOX 40 MG SC (18:46)
[2023-12-16] MEDS: ProAmatine 5 MG PO (18:46)
--- NOTE | 2023-12-16 19:32 | PTCARENOTE ---
Received patient from ED on stretcher. Patient AAOx3. Arrived to floor with 4L n/c sp02 91-94%, denies shortness of breath. Lungs diminished with crackles at bases. Frequent moist cough. Patient reports gomez sputum. Patient also states that he
has had the cough for a year. vital signs stable, afebrile. Used urinal at bedside, clear yellow urine. Denies any pain or discomfort. Oriented patient to room. Family at bedside.
[2023-12-16] MEDS: FLOMAX 0.4 MG PO (20:24)
[2023-12-16] MEDS: ZOSYN 100 IV (20:24)
[2023-12-16] MEDS: VISBIOME 1 CAP PO (20:24)
[2023-12-16] MEDS: PEPCID 40 MG PO (20:24)
[2023-12-16] MEDS: BETAPACE 40 MG PO (20:24)
[2023-12-16] MEDS: ADVAIR HFA 230/21 MCG INHALER INH ×2 (21:16→21:22)
[2023-12-16] MEDS: VENTOLIN NEBULES 2.5 MG INH (21:16)
[2023-12-17] VITALS (13 sets, daily range): BP systolic 97–120; BP diastolic 60–78; O2SAT 93; BMI 23.5
[2023-12-17] MEDS: ZOSYN 100 IV ×5 (01:33→23:47)
[2023-12-17 05:12] LABS: Hematocrit 42.6 % (39.0-52.0); Hemoglobin 14.1 g/dL (13.0-18.0); Mean Corp Hgb Conc. 33.1 g/dL (33.0-37.0); Mean Corpuscular Hgb 27.8 pg (27.0-31.0); Platelet Count 205 10^3/uL (130-400); Red Blood Cell Count 5.07 10^6/uL (4.70-6.10); Red Cell Dist. Width 14.8 % (11.5-14.5); White Blood Cell Count 31.2 10^3/uL (4.8-10.8)
[2023-12-17] MEDS: VANCOCIN 200 IV (05:57)
[2023-12-17 06:15] LABS: Blood Urea Nitrogen 22 mg/dl (9-20); Calcium 6.9 mg/dl (8.4-10.2); Carbon Dioxide 23 mmol/L (22-30); Chloride 88 mmol/L (98-107); Estimated Creatinine Clearance 62 ml/min; Glucose 281 mg/dl (70-99); Potassium 2.8 mmol/L (3.5-5.1); Sodium 134 mmol/L (135-145); eGFR > 60.00
[2023-12-17] MEDS: VENTOLIN NEBULES 2.5 MG INH ×2 (07:41→20:00)
[2023-12-17] MEDS: ADVAIR HFA 230/21 MCG INHALER 2 PUFF INH ×2 (07:41→20:00)
[2023-12-17] MEDS: NON-FORMULARY ITEM 61 MG PO (08:03)
[2023-12-17] MEDS: FLOMAX 0.4 MG PO ×2 (08:04→21:19)
[2023-12-17] MEDS: ProAmatine 5 MG PO ×3 (08:04→18:13)
[2023-12-17] MEDS: BETAPACE 40 MG PO ×2 (08:05→21:20)
[2023-12-17] MEDS: VISBIOME 1 CAP PO ×2 (08:06→21:19)
[2023-12-17] MEDS: THERAGRAN 1 TABLET PO (08:06)
[2023-12-17] MEDS: PROSCAR 5 MG PO (08:06)
--- NOTE | 2023-12-17 08:08 | PHA.VAN.FU ---
Vancomycin Assessment / Plan
- Assessment
Renal Function: SCR Decreasing
WBC's are: Trending Down
In the past 24 hrs, patient has been: Afebrile
Concomitant Antimicrobials: ZOSYN
- Dosing Plan
Continue: 1000MG Q24H
Dosing Comments: CONSIDER ADJUSTING TO 1250MG Q24H IF SCR STAYS STABLE
- Monitoring Plan
No level(s) ordered at this time: CONSIDER AT STEADY STATE
- Follow Up
Pharmacy will continue to follow.
Vancomycin Follow UP
- -
Patient Age: 87
Patient Sex: Male
Vancomycin Day #: 2
Indication: Pulmonary/Respiratory
Requesting Provider: Dr Monsivais
Pertinent Antimicrobial Allergies:
levofloxacin [From Levaquin] Allergy (Verified 12/16/23 15:33) Unknown
Height / Weight:
Height 5 ft 7 in
Actual Weight 68.1 kg
Pertinent Past Medical History: CLL, h/o pseudomonas PNA
- Vital Signs / Lab Results
Temp Pulse Resp BP Pulse Ox
97.4 F 82 16 99/60 93
12/17/23 03:26 12/17/23 07:45 12/17/23 07:45 12/17/23 06:00 12/17/23 07:45
Lab Results - Hematology
12/16/23 12/17/23
14:31 04:46
WBC 49.6 H* 31.2 H
Lab Results - Chemistry
12/16/23 12/17/23 12/17/23
14:31 04:46 05:37
BUN 29 H Cancelled 22 H
Creatinine 1.1 Cancelled 0.8
Estimated Creat Clear 45 Cancelled 62
Albumin 3.4 L
12/16/23 12/16/23
15:53 19:15
Lactic Acid 1.0 Cancelled
--- NOTE | 2023-12-17 08:53 | CON.CAR ---
Consultation
Consultation Request
Date/Time Consultation Requested: 12/17/23
Date/Time Consultation Performed: 12/17/23
Requesting Provider: Dr Monsivais
Performing Provider: Dr Tovar(primary Dr Mcdonnell)
Reason for Consultation: ?ChF
Medical History
-
Chief Complaint: cough and chilles
History of Present Illness:
87-year-old male with past medical history of hypertension, CLL, paroxysmal A-fib on Eliquis, cardiac amyloidosis, CAD s/p PCI, CHB s/p PPM, COPD, chronic hypotension on midodrine and history of Pseudomonas pneumonia who presented to the ED with
cough productive of gomez sputum associated with chills and fatigue for the last 48 hours. He presented with a marked leukocytosis at 49.6 with a significant left shift. He is being treated for pneumonia with coverage for Pseudomonas and MRSA given
his prior history. proBNP was noted to be markedly elevated. In the ED, he received a dose of Lasix with a brisk response of -1.1 L and now hypokalemia.We are asked to comment on whether heart failure is also an issue. Dr. Monsivais the admitting
physician did not believe so and thought this was mostly due to pneumonia.
Daughter and at the bedside and add to history. He has been feeling poorly for quite some time. He has been losing weight for some time due to poor appetite. Recent admissions for a fall and then enterocolitis. He does have orthopnea and
early satiety at times. He has increased le edema after a recent fall in the right leg but left leg always swollen. He doesn't take lasix daily but when he does take it he has a good response.
Past Medical History
Past Medical History: Arrhythmias (paf), CAD, COPD and Other (Cardiac Amyloidosis Paroxysmal Atrial Fibrillation ASCVD Chronic HFpEF Hypertension CLL Prostate Cancer Lung Cancer BPH, colitis)
Past Surgical History: Other (Right Upper Lobectomy Prostatectomy PTCA with Stent PVI Ablation DCCV PPM Placement Hernia Repair (x 2) Cholecystectomy)
Social History
Tobacco: Former Smoker
Alcohol: Occasional
Drug: None
Family History
Family History: Reviewed & Not Pertinent
Allergies / Home Medications
Allergy/AdvReac Type Severity Reaction Status Date / Time
levofloxacin [From Levaquin] Allergy Unknown Verified 12/16/23 15:33
�Medication �Instructions �Recorded �Confirmed �Type
tamsulosin 0.4 mg capsule 0.4 mg PO BID Urinary issue 05/31/12 12/16/23 History
famotidine 40 mg tablet 40 mg PO HS Gastrointestinal issue 04/15/21 12/16/23 History
finasteride 5 mg tablet 5 mg PO DAILY Urinary issue 04/15/21 12/16/23 History
furosemide 20 mg tablet 20 mg PO .2X WEEKLY edema 04/15/21 12/16/23 History
tafamidis 61 mg capsule (Vyndamax) 61 mg PO DAILY Heart 04/15/21 12/16/23 History
disease/condition
multivitamin 1 tab PO DAILY Supplement 07/13/22 12/16/23 History
fluticasone 500 mcg-salmeterol 50 1 inh inhalation R Q12 05/16/23 12/16/23 History
mcg/dose blistr powdr for Lung/Breathing Issues
inhalation (Wixela Inhub)
albuterol sulfate 2.5 mg/3 mL 2.5 mg inhalation R BID 09/06/23 12/16/23 History
(0.083 %) solution for nebulization Lung/Breathing Issues
fluorouracil 5 % topical cream 1 applic topical DAILY PRN skin 09/06/23 12/16/23 History
care
ipratropium bromide 21 mcg (0.03 2 spray intranasal BID Allergies 09/06/23 12/16/23 History
%) nasal spray
sotalol 80 mg tablet 40 mg PO BID Arrhythmia 09/06/23 12/16/23 History
zolpidem 5 mg tablet 5 mg PO HSPRN PRN SLEEP #2 tabs 09/25/23 12/16/23 Rx
Lactobac no.2-Bifidobac no.1-S. 1 cap PO .2-3X DAILY 11/29/23 12/16/23 History
thermo 112.5 billion cell capsule Gastrointestinal Issue
(Visbiome)
albuterol sulfate 90 mcg/actuation 2 puff inhalation R Q4HPRN PRN 11/29/23 12/16/23 History
aerosol inhaler sob/wheezing
midodrine 5 mg tablet 5 mg PO TID Blood pressure 11/29/23 12/16/23 History
acetaminophen 500 mg tablet 500 mg PO QID 12/16/23 12/16/23 History
apixaban 5 mg tablet 5 mg PO BID 12/16/23 12/16/23 History
benzonatate 100 mg capsule 100 mg PO TID PRN Respiratory 12/16/23 12/16/23 History
cyanocobalamin (vitamin B-12) 1,000 mcg PO DAILY 12/16/23 12/16/23 History
1,000 mcg tablet
guaifenesin 600 mg tablet,extended 600 mg PO Q12H 12/16/23 12/16/23 History
release
Review of Systems
-
All other systems: Negative unless noted
Physical Exam
Vital Signs
Temp Pulse Resp BP Pulse Ox
97.8 F 82 16 99/60 96
12/17/23 07:27 12/17/23 07:45 12/17/23 07:45 12/17/23 06:00 12/17/23 08:35
Lab Results
12/17/23 04:46
12/17/23 05:37
Ofb-Z-Mddwyadfiyl Pept 22123 pg/ml 12/16/23 14:31
Physical Exam
General: Other (appears chronically ill)
HEENT: Normocephalic
Respiratory: Crackles (bibasilar)
Cardiac: S1/S2 and Peripheral Edema (b/ 2+ pitting left worse than right)
GI: Soft
Neuro: AO x 3
Impression / Plan
-
87-year-old male with past medical history of hypertension, CLL, paroxysmal A-fib on Eliquis, cardiac amyloidosis, CAD s/p PCI, CHB s/p PPM, COPD, chronic hypotension on midodrine and history of Pseudomonas pneumonia who presented to the ED with
cough productive of gomez sputum associated with chills and fatigue for the last 48 hours.
Acute hypoxic respiratory failure in the setting of bilateral pna.
-agree this seems to be mostly and pulmonary source rathter than CHF.
-will hold standing lasix and continue as needed to keep even
HFpEF in the setting of amyloidosis;
-GDMT: COntinue Tifamidis
-would aim to keep even, not acute exacerbated
-tubigrips ordered
PAF : continue Sotalol and Eliquis
FTT: seems to have this in the setting of multple chronic medical conditions and recurrent hospitalizations
CLL failed IVIG recently
CHB sp ppm
Poor prognosis, high risk of recurrent hopsitalizaitons as we are seeing
Data Reviewed
-
EKG: Tracing Personally Visualized and interpreted (Atrial sensed ventricular paced rhythm)
Radiology: Image Personally Visualized and interpreted (Patchy infiltrate in lung space disease worse on the right lower lobes but some on the left lower lobe. Blunted costophrenic angle suggestive of very small pleural effusions.) and Report
Reviewed by me (COPD with increased interstitial and acinar opacities in the mid to lower lung zones, bilaterally with small right pleural effusion. The differential includes congestive heart failure with interstitial and alveolar edema versus
pneumonia.)
[2023-12-17] MEDS: KCL 40 MEQ PO (09:03)
[2023-12-17] MEDS: KCL 270 MEQ IV (09:03)
--- NOTE | 2023-12-17 11:20 | W.PN.HOSP.TC ---
Addendum entered and electronically signed by Kodak Blackman MD 12/20/23 08:13:
hypokalemia- replaced
Original Note:
Today's Communication/Plan
-
Continue Lasix
Cardiology evaluation
Speech evaluation to avoid aspiration
Aspiration precautions
Change vancomycin to doxycycline continue Zosyn
Restarted Eliquis
Assessment / Plan
Assessment / Plan
CVS: S1-S2 appreciated
Chest: right side decreased BS
Abdomen: Soft, NT / Bowel sounds present
Extremities: Bilateral pedal edema
CXR: COPD with increased interstitial and acinar opacities in the mid to lower lung zones, bilaterally with small right pleural effusion. The differential includes congestive heart failure with interstitial and alveolar edema versus pneumonia.
Acute hypoxemic respiratory failure
-Currently on 6 L of oxygen-wean as tolerated
-With history of Pseudomonas pneumonia will give Zosyn. Change vancomycin to doxycycline to cover atypical too.
-Pulmonary and cardiology have been consulted-appreciated
-Per discussion with patient's family he does have coughing with p.o. intake. Requested speech evaluation
Possible heart failure-? Acute heart failure with preserved ejection fraction
Echo 09/06/2023-normal biventricular size and systolic function. EF 50 to 55%. Mild to moderate TR
Currently on Lasix-continue for now
Other problems:
CLL
Paroxysmal atrial fibrillation: Cont Sotalol
Coronary artery disease with stent
Cardiac amyloidosis: cont Vyndamax
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
Chronic obstructive pulmonary disease: cont Wixela
Chronic hypotension: cont Midodrine
H/O pseudomonas PNA
Ex-smoker
History of lung cancer with right sided lobectomy
Nephrolithiasis
Enlarged prostate-continue finasteride, Flomax
DNR - confirmed with pt and family in ER
DVT Prophylaxis-Eliquis.
Discussed with patient's and daughter at bedside
Discussed with nursing
Discussed with Dr. Arizmendi
time spent over 50 min
Anticipated Discharge: > 48 hours
Subjective/Interval History
-
Date of Service: December 17, 2023
Objective Data
-
Labs:
Laboratory Results
12/17/23 12/17/23
04:46 05:37
WBC 31.2 H
Hgb 14.1
Hct 42.6
Plt Count 205
Sodium Cancelled 134 L
Potassium Cancelled 2.8 L D
Chloride Cancelled 88 L
Carbon Dioxide Cancelled 23
BUN Cancelled 22 H
Creatinine Cancelled 0.8
Glucose Cancelled 281 H
Calcium Cancelled 6.9 L* D
Vital Signs:
Vital Signs
Temp Pulse Resp BP Pulse Ox
97.8 F 82 16 99/60 96
12/17/23 07:27 12/17/23 07:45 12/17/23 07:45 12/17/23 06:00 12/17/23 08:35
I&O
12/16/23 12/17/23 12/18/23
06:59 06:59 06:59
Intake Total 240 / 240 240 / 240
Output Total 1160 / 1160 250 / 250
Balance -920 / -920 -10 /
--- NOTE | 2023-12-17 12:02 | CON.PUL ---
Consultation
Consultation Request
Date/Time Consultation Requested: 12/16
Date/Time Consultation Performed: 12/16
Reason for Consultation: Pneumonia hypoxia
Medical History
-
History of Present Illness:
History obtained from the chart, outpatient inpatient records and reviewing history from the patient and family at the bedside. 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
Pseudomonas pneumonia, history of heart failure with normal ejection fraction, CLL without treatment also being treated for cardiac amyloidosis who presents on 12/16/2023 with increasing shortness of breath, increased lower extremity swelling.
Patient was last hospitalized and discharged 12/04/2023 for enterocolitis. He also has history of fall back in September 2023. Since his fall, he states he has not been doing well. Upon arrival, afebrile, pulse 72, breathing at 29, blood pressure
107/76, 88% saturation. Chest x-ray confirmed bibasilar pneumonia. Patient was given Lasix, ceftriaxone/doxycycline. Cultures were obtained. Also received vancomycin, admitted for pneumonia, hypoxia.
Bronchoscopy 06/02/2023 with significant thick secretions tracheobronchial tree. Findings consistent with atypical pneumocytes consistent with likely inflammatory/infectious process, no evidence of malignancy. Patient had right lower lobe lesion x
2 and lymph nodes evaluated
PMH: History of recurrent pneumonia, Pseudomonas infection, bronchoscopy May 2023 with severe thick secretions throughout tracheobronchial tree, cytology negative for cancer, history of COPD, partial lobectomy of the lung on the right for lung
cancer 2003, severe sleep apnea, CLL without treatment, cardiac amyloidosis, common variable immunodeficiency, history of multiple pulm nodules in the past, waxing and waning with negative bronchoscopy May 2023, suspected chronic aspiration
syndrome, history of C. difficile colitis 2012
Past Medical History
Past Medical History: None (See above)
Past Surgical History: None (See above)
Social History
Tobacco: Former Smoker ([id number], quit around 1993 at)
Alcohol: Occasional
Drug: None
Personal:
Living: With Family
Employment: Retired
Family History
Family History: Other (1 daughter 6 decade from lung cancer. 1 sister from ALS sixth decade)
Allergies / Home Medications
Allergies
Allergy/AdvReac Type Severity Reaction Status Date / Time
levofloxacin [From Levaquin] Allergy Unknown Verified 12/16/23 15:33
Home Medications
�Medication �Instructions �Recorded �Confirmed �Last Taken �Type
tamsulosin 0.4 mg capsule 0.4 mg PO BID Urinary issue 05/31/12 12/16/23 12/12/23 History
famotidine 40 mg tablet 40 mg PO HS Gastrointestinal issue 04/15/21 12/16/23 12/11/23 History
finasteride 5 mg tablet 5 mg PO DAILY Urinary issue 04/15/21 12/16/23 12/12/23 History
furosemide 20 mg tablet 20 mg PO .2X WEEKLY edema 04/15/21 12/16/23 04/28/23 History
tafamidis 61 mg capsule (Vyndamax) 61 mg PO DAILY Heart 04/15/21 12/16/23 12/12/23 History
disease/condition
multivitamin 1 tab PO DAILY Supplement 07/13/22 12/16/23 12/12/23 History
fluticasone 500 mcg-salmeterol 50 1 inh inhalation R Q12 05/16/23 12/16/23 12/12/23 History
mcg/dose blistr powdr for Lung/Breathing Issues
inhalation (Wixela Inhub)
albuterol sulfate 2.5 mg/3 mL 2.5 mg inhalation R BID 09/06/23 12/16/23 11/29/23 History
(0.083 %) solution for nebulization Lung/Breathing Issues
fluorouracil 5 % topical cream 1 applic topical DAILY PRN skin 09/06/23 12/16/23 Unknown History
care
ipratropium bromide 21 mcg (0.03 2 spray intranasal BID Allergies 09/06/23 12/16/23 12/12/23 History
%) nasal spray
sotalol 80 mg tablet 40 mg PO BID Arrhythmia 09/06/23 12/16/23 12/12/23 History
zolpidem 5 mg tablet 5 mg PO HSPRN PRN SLEEP #2 tabs 09/25/23 12/16/23 Unknown Rx
Lactobac no.2-Bifidobac no.1-S. 1 cap PO .2-3X DAILY 11/29/23 12/16/23 12/12/23 History
thermo 112.5 billion cell capsule Gastrointestinal Issue
(Visbiome)
albuterol sulfate 90 mcg/actuation 2 puff inhalation R Q4HPRN PRN 11/29/23 12/16/23 Unknown History
aerosol inhaler sob/wheezing
midodrine 5 mg tablet 5 mg PO TID Blood pressure 11/29/23 12/16/23 12/12/23 History
acetaminophen 500 mg tablet 500 mg PO QID Pain 12/16/23 12/16/23 Unknown History
apixaban 5 mg tablet 5 mg PO BID Blood Clot 12/16/23 12/16/23 Unknown History
Prevention/Tx
benzonatate 100 mg capsule 100 mg PO TID PRN Respiratory 12/16/23 12/16/23 Unknown History
cyanocobalamin (vitamin B-12) 1,000 mcg PO DAILY Supplement 12/16/23 12/16/23 Unknown History
1,000 mcg tablet
guaifenesin 600 mg tablet,extended 600 mg PO Q12H Cough 12/16/23 12/16/23 Unknown History
release
Review of Systems
-
All other systems: Negative unless noted
Vitals / Labs / Diagnostic Testing
Vital Signs
Temp Pulse Resp BP Pulse Ox
97.5 F 70 18 97/60 94
12/17/23 11:46 12/17/23 11:00 12/17/23 11:00 12/17/23 10:00 12/17/23 11:26
Lab Data
12/17/23 04:46
12/17/23 05:37
Diagnostic Testing:
Physical Exam
-
HEENT: Normocephalic and Anicteric
Cardiovascular: S1/S2, Regular Rhythm, Murmur (n), Rub (n) and Peripheral Edema (1-2+)
Respiratory: Wheeze (n), Rales (Bibasilar), Rhonchi (Scattered) and Non-Labored Respirations
GI: Soft, Non Distended and Non Tender
Neurology: Awake, Alert and No Motor Deficits (Able to turn himself over without assistance, generally weak)
Skin: Other (No skin rash, scattered bruising)
General: Comfortable
Assessment
-
Patient is an 87-year-old male with previous history of PAF, CAD status post stents, cardiac amyloid, CLL, CHB status post PPM, recurrent pneumonias, COPD, CHF presenting with increased shortness of breath, fatigue, found to have hypoxia, 88% on
room air, required 4 L to maintain saturation 92%. Chest x-ray showed bilateral infiltrates. Patient was given Lasix and antibiotics and admitted for further management
Acute hypoxic respiratory insufficiency, 88% room air
92% on 4 L
Bibasilar pneumonia, acute
Increased lower extremity swelling, weight gain
Leukocytosis
Hyponatremia/hypokalemia
Hypocalcemia
Hyperglycemia
Immunoglobulin deficiency
Recent IVIG 1 week ago?
Patient did not tolerate
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
History of cardiac amyloid
Chronic bronchitis
History of multiple pneumonias
Pseudomonas, MSSA
Bronchoscopy May 2023 with significant secretions throughout tracheobronchial tree
Bilateral interstitial disease, reticular thickening
No honeycomb changes
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
Severe JENNIFER, AHI 53.5, desaturation fabrice 73%
Recently started on CPAP in the last week, has yet to comply
CLL, follows with Blake Duffy
No treatment
History of C. difficile colitis, 2012
COPD with moderate obstruction
Emphysema
History of lung cancer status post resection 2003
Allergic rhinitis
[id number] history of smoking, quit 1993
Family history of lung cancer (daughter)
Family history of ALS (sister)
DNR
Plan/recommendations
At this time, patient with extremely complex medical history.
Salient features include recurrent pneumonias, worsening bibasilar pneumonia on current imaging, significant productive cough
Bronchoscopy in May 2023 with severe secretions noted
Patient apparently recently tried IVIG treatment 1 week ago, could not tolerate
Was also started on CPAP recently in the last week, has yet to comply with
Patient also describes possible aspiration syndrome
Moving forward
Continue with broad-spectrum antibiotics. Agree with Zosyn therapy
Will transition to doxycycline, stop vancomycin
Prior bronchoscopy with MSSA in May 2023.
Recurrent Pseudomonas also noted in the past
Patient will require more aggressive airway clearance
Add vest therapy
Sputum cultures
Prior history of lung disease is noted including
He has had numerous episodes of recurrent pneumonia, treated with antibiotics in the past 6 months.
Pseudomonas x 2, has been treated with Levaquin in the past
MSSA completed Ancef
Achromobacter, treated with Bactrim
IgG levels are low, planning for outpatient IVIG treatment, according to , he did not tolerate 1 week ago
May need to touch base with hematology/oncology history of CLL noted
Sees [facility]
CHF, AFib history
Prior ECHO results are reviewed indicating normal function
Patient resumed home cardiac medications
Records suggest cardiac amyloid
Follows cardiology. Do not suspect component of heart failure at this time
He is DNR
Daughter is asking about options given multiple hospital stays. Discussed possibility of palliative care, hospice
Unclear if this has been discussed with patient/
Ongoing discussion
DVT prophylaxis-on Eliquis
GI prophylaxis-on Pepcid
Reviewed at length with patient, multiple family members, primary service
Will follow
[2023-12-17] MEDS: ROBITUSSIN 200 MG PO ×3 (12:05→21:20)
[2023-12-17] MEDS: ELIQUIS 5 MG PO ×2 (12:06→21:19)
[2023-12-17] MEDS: VIBRAMYCIN 100 MG PO ×2 (12:06→21:19)
--- NOTE | 2023-12-17 14:17 | PTCARENOTE ---
Pt presents as assessed. Aox3. 100% vpaced on tele monitor. Sating mid 90's on 6L NC. OOB to chair for meals. Family at bedside. Updated on plan of care. Ringing appropriately, call edwards within reach.
--- NOTE | 2023-12-17 15:09 | PTOTSP ---
Speech Therapy
Presentation: Patient's speech and language is WNL during conversation. Patient demonstrated wet coughing at baseline. Patient states that this has been going on for ~1 year.
Complaints: Patient had a baseline wet cough prior to PO trials which has been going on for a reported 'year or so'. Patient reports having trouble with swallowing large pills, several pills at 1 time, and certain foods at home. Patient also shared
having excessive post-nasal drip for approximately 6 months. Patient has a history of several different pna during the past ~6 months.
Swallowing Function: Patient was observed with several bites of cracker and sips of thin liquids in which patient demonstrated inconsistent coughing in the absence of PO that was wet sounding. Patient's vocal quality, RR and SpO2 remained WNL during
the session.
Given the patient's overall medical presentation, history of COPD and CLL, recurrent pna, and continuous wet cough, recommend continuation of current diet with a VSE to r/o aspiration.
Previous 07/11/23 VSE; STRUCTURAL ENGINEER recommended regular consistency solids and thin liquids
Recommendations:
1) Continuation of regular consistency solids and thin liquids
2) Aspiration and reflux precautions
3) COPD and CLL precautions
4) Medications as tolerated
5) VSE to r/o aspiration
Plan: STRUCTURAL ENGINEER will continue to follow; pending hospitalization.
[2023-12-17] MEDS: PEPCID 40 MG PO (21:20)
[2023-12-18] VITALS (15 sets, daily range): BP systolic 97–117; BP diastolic 60–98; PULSE 70; O2SAT 94; BMI 23.6
--- NOTE | 2023-12-18 02:25 | PTCARENOTE ---
Pt has had no complaints at this time. Pt assessment care and vitals as charted.
[2023-12-18] MEDS: ZOSYN 100 IV ×4 (05:05→23:11)
[2023-12-18 05:49] LABS: Hemoglobin 13.8 g/dL (13.0-18.0); Mean Corp Hgb Conc. 32.1 g/dL (33.0-37.0); Mean Corpuscular Hgb 27.5 pg (27.0-31.0); Mean Corpuscular Volume 85.8 fL (80.0-94.0); Mean Platelet Volume 11.4 fL (7.4-10.4); Platelet Count 243 10^3/uL (130-400); Red Blood Cell Count 5.01 10^6/uL (4.70-6.10); Red Cell Dist. Width 14.7 % (11.5-14.5)
[2023-12-18 06:17] LABS: Blood Urea Nitrogen 24 mg/dl (9-20); Calcium 8.9 mg/dl (8.4-10.2); Carbon Dioxide 28 mmol/L (22-30); Chloride 106 mmol/L (98-107); Estimated Creatinine Clearance 45 ml/min; Glucose 77 mg/dl (70-99); Potassium 4.1 mmol/L (3.5-5.1); Sodium 138 mmol/L (135-145); eGFR > 60.00
[2023-12-18] MEDS: ADVAIR HFA 230/21 MCG INHALER 2 PUFF INH ×2 (07:42→20:07)
[2023-12-18] MEDS: VENTOLIN NEBULES 2.5 MG INH ×2 (07:43→20:08)
[2023-12-18] MEDS: VISBIOME 1 CAP PO ×2 (08:50→20:36)
[2023-12-18] MEDS: PROSCAR 5 MG PO (08:50)
[2023-12-18] MEDS: THERAGRAN 1 TABLET PO (08:50)
[2023-12-18] MEDS: ROBITUSSIN 200 MG PO ×4 (08:50→20:37)
[2023-12-18] MEDS: VIBRAMYCIN 100 MG PO ×2 (08:50→20:36)
[2023-12-18] MEDS: FLOMAX 0.4 MG PO ×2 (08:50→20:36)
[2023-12-18] MEDS: ELIQUIS 5 MG PO ×2 (08:50→20:35)
[2023-12-18] MEDS: BETAPACE 40 MG PO ×2 (08:51→20:36)
[2023-12-18] MEDS: ProAmatine 5 MG PO ×3 (08:52→18:05)
[2023-12-18] MEDS: NON-FORMULARY ITEM 61 MG PO (08:53)
--- NOTE | 2023-12-18 10:01 | W.PN.CD ---
Today's Communication / Plan
-
Lasix tomorrow and then Monday
Otherwise per primary.
We will sign off please call with questions/concerns.
Impression / Plan
-
87-year-old male with past medical history of hypertension, CLL, paroxysmal A-fib on Eliquis, cardiac amyloidosis, CAD s/p PCI, CHB s/p PPM, COPD, chronic hypotension on midodrine and history of Pseudomonas pneumonia who presented to the ED with
cough productive of gomez sputum associated with chills and fatigue for the last 48 hours.
Acute hypoxic respiratory failure in the setting of bilateral pna.
-agree this seems to be mostly and pulmonary source rathter than CHF.
-will hold standing lasix and continue as needed to keep even
HFpEF in the setting of amyloidosis;
-GDMT: COntinue Tifamidis
-would aim to keep even, not acute exacerbated
-tubigrips ordered
- Recommend giving lasix tomorrow and Monday
- He has been losing weight lately, and typically doesn't have a volume issue
- he has chronic b/l LE edema
PAF : continue Sotalol and Eliquis
FTT: seems to have this in the setting of multple chronic medical conditions and recurrent hospitalizations
CLL failed IVIG recently
CHB sp ppm
Poor prognosis, high risk of recurrent hopsitalizaitons as we are seeing
Subjective: breathing and coughing remain, otherwise no new complaints
Physical Exam
Vital Signs/Labs
Vital Signs
Temp Pulse Resp BP Pulse Ox
98.0 F 70 17 115/80 95
12/18/23 07:56 12/18/23 08:51 12/18/23 07:45 12/18/23 08:52 12/18/23 07:45
12/17/23 12/18/23 12/19/23
06:59 06:59 06:59
Actual Weight 150 lb 2.157 oz 150 lb 9.211 oz
12/18/23 05:03
12/18/23 05:03
Magnesium 2.0 mg/dl (1.6-2.3) 12/18/23 05:03
12/16/23
14:31
Vsl-X-[id number] Pept 18944
Physical Exam
Constitutional: No acute distress and Comfortable
EENT: Anicteric
Cardiovascular: Rhythm & rate is regular
Respiratory: Respiratory effort normal, Wheeze Present and Crackles Present
GI: Soft
Neuro/Psych: AO x 3
Data Reviewed
-
Date of Service: December 18, 2023
EKG: Tracing Personally Visualized and interpreted (paced)
Echo: Report Reviewed by me
Labs: Labs Reviewed by me
--- NOTE | 2023-12-18 10:02 | W.PN.HOSP.TC ---
Today's Communication/Plan
-
see bold
Assessment / Plan
Assessment / Plan
Acute hypoxemic respiratory failure
-Currently on 5 L of oxygen, down from 6 L, wean as tolerated
-Appreciate pulmonology input, has history of Pseudomonas, continue Zosyn and doxycycline\\
-Cleared by SPL for regular solids and thin liquids
Acute heart failure with preserved ejection fraction in the setting of amyloidosis
Echo 09/06/2023-normal biventricular size and systolic function. EF 50 to 55%. Mild to moderate TR
Appreciate cardiology input, continue Tifamidis, and lasix as per cards
Constipation:
-Start laxatives
Stage II sacral decubitus ulcer:
-Offloading
Other problems:
CLL
Paroxysmal atrial fibrillation: Cont Sotalol/eliquis
Coronary artery disease with stent
Cardiac amyloidosis: cont Vyndamax
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
Chronic obstructive pulmonary disease: cont Wixela
Chronic hypotension: cont Midodrine
H/O pseudomonas PNA
Ex-smoker
History of lung cancer with right sided lobectomy
Nephrolithiasis
Enlarged prostate-continue finasteride, Flomax
DVT prophylaxis�Eliquis
DNR - confirmed with pt and family in ER
Updated at bedside 12/17
Total time spent to see the patient on the floor, examine the patient, review data and lab results, discuss treatment plan with patient, nursing staff around 50 minutes.
Physical Exam
General: Appears to not feel well, no acute distress
HEENT: Normocephalic, Atraumatic, EOMI, MMM
Respiratory: Clear to Auscultation bilaterally
Cardiac: Normal S1/S2, Regular Rate and Rhythm
GI: Soft, Nontender, Nondistended, Normal Bowel Sounds
Extremities: No Clubbing, Cyanosis, or Edema
Neuro: Nonfocal/Grossly Intact
Psych: Calm, Cooperative
Derm: Stage II sacral decubitus ulcer
Anticipated Discharge: > 48 hours
Subjective/Interval History
-
Date of Service: December 18, 2023
Patient continues to cough. Denies shortness of breath. No fever, no nausea, no vomiting. He does complain of constipation.
Objective Data
-
Labs:
Laboratory Results
12/18/23
05:03
WBC 25.0 H
Hgb 13.8
Hct 43.0
Plt Count 243
Sodium 138
Potassium 4.1 D
Chloride 106
Carbon Dioxide 28
BUN 24 H
Creatinine 1.1
Glucose 77
Calcium 8.9 D
Vital Signs:
Vital Signs
Temp Pulse Resp BP Pulse Ox
98.0 F 70 17 115/80 95
12/18/23 07:56 12/18/23 08:51 12/18/23 07:45 12/18/23 08:52 12/18/23 07:45
I&O
12/17/23 12/18/23 12/19/23
06:59 06:59 06:59
Intake Total 240 / 240 540 / 540
Output Total 1160 / 1160 250 / 250 50 / 50
Balance -920 / -920 290 / 290 -50 / -50
--- NOTE | 2023-12-18 12:22 | PTOTSP ---
Addendum entered and electronically signed by Josi Tapia MS, ST, CCC, OUTSIDE INSTALLER APPRENTICE 12/18/23 12:26:
6. Intersperse sip of liquid after 2-3 bites of solid throughout meal
Original Note:
Video Swallow Examination
No significant change from previous study. No aspiration but trace upper laryngeal penetration with thin and nectar thick liquids and risk for chronic trace aspiration. Pharyngeal stasis with improved clearance using dry swallows and compensatory
strategy of head turn left.
Recommend
1. Continue Regular solids and thin liquids
2. Meds as best tolerated
3. Dry swallows with head turn left
4. Intermittent throat clear and dry swallow after liquids.
5. Aspiration and reflux precautions.
--- NOTE | 2023-12-18 13:06 | W.PN.PUL3 ---
Today's Communication / Plan
-
Continue with airway clearance, vest therapy
MRSA screen positive
Await sputum culture
May require ID evaluation depending on clinical course
Assessment
-
Patient is an 87-year-old male with previous history of PAF, CAD status post stents, cardiac amyloid, CLL, CHB status post PPM, recurrent pneumonias, COPD, CHF presenting with increased shortness of breath, fatigue, found to have hypoxia, 88% on
room air, required 4 L to maintain saturation 92%. Chest x-ray showed bilateral infiltrates. Patient was given Lasix and antibiotics and admitted for further management
Acute hypoxic respiratory insufficiency, 88% room air
92% on 4 L
Bibasilar pneumonia, acute
Increased lower extremity swelling, weight gain
Leukocytosis
Hyponatremia/hypokalemia
Hypocalcemia
Hyperglycemia
Immunoglobulin deficiency
Recent IVIG 1 week ago?
Patient did not tolerate
Aspiration syndrome suspected
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
History of cardiac amyloid
Chronic bronchitis
History of multiple pneumonias
Pseudomonas, MSSA
Bronchoscopy May 2023 with significant secretions throughout tracheobronchial tree
Bilateral interstitial disease, reticular thickening
No honeycomb changes
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
Severe JENNIFER, AHI 53.5, desaturation fabrice 73%
Recently started on CPAP in the last week, has yet to comply
CLL, follows with Blake Duffy
No treatment
History of C. difficile colitis, 2012
COPD with moderate obstruction
Emphysema
History of lung cancer status post resection 2003
Allergic rhinitis
[id number] history of smoking, quit 1993
Family history of lung cancer (daughter)
Family history of ALS (sister)
DNR
Plan/recommendations
At this time, patient with extremely complex medical history.
Salient features include recurrent pneumonias, worsening bibasilar pneumonia on current imaging, significant productive cough
Bronchoscopy in May 2023 with severe secretions noted
Patient apparently recently tried IVIG treatment 1 week ago, could not tolerate
Was also started on CPAP recently in the last week, has yet to comply with
Patient also describes possible aspiration syndrome
VSE suggest increased risk for aspiration
Moving forward
Continue with broad-spectrum antibiotics. Currently on Zosy/doxycycline
MRSA screen positive. Received 1 dose of vancomycin, discontinued 12/16
Await sputum culture
Prior bronchoscopy with MSSA in May 2023.
Recurrent Pseudomonas also noted in the past
Patient will require more aggressive airway clearance
continue vest therapy
follow cx
Depending on findings, may require infectious disease evaluation
Prior history of lung disease is noted including
He has had numerous episodes of recurrent pneumonia, treated with antibiotics in the past 6 months.
Pseudomonas x 2, has been treated with Levaquin in the past
MSSA completed Ancef
Achromobacter, treated with Bactrim
IgG levels are low, planning for outpatient IVIG treatment, according to , he did not tolerate 1 week ago
May need to touch base with hematology/oncology history of CLL noted
Sees [facility]
CHF, AFib history
Prior ECHO results are reviewed indicating normal function
Patient resumed home cardiac medications
Records suggest cardiac amyloid
Follows cardiology. Do not suspect component of heart failure at this time
He is DNR
Daughter is asking about options given multiple hospital stays. Discussed possibility of palliative care, hospice
Unclear if this has been discussed with patient/
Ongoing discussion
DVT prophylaxis-on Eliquis
GI prophylaxis-on Pepcid
Reviewed at length with patient, at bedside
Subjective Data
-
Date of Service:
Date of Service: December 18, 2023
Subjective:
Subjectively, patient is improved. Still has productive cough, denies hemoptysis. Feels vest therapy is helping him. Appears to be more conversant, less fatigued
Objective Data
Data Reviewed
Vital Signs / I&O / Oxygen:
Vital Signs
Temp Pulse Resp BP Pulse Ox
98.0 F 70 24 107/93 98
12/18/23 07:56 12/18/23 12:12 12/18/23 12:00 12/18/23 12:12 12/18/23 12:48
Intake and Output
12/17/23 12/18/23 12/19/23
06:59 06:59 06:59
Intake Total 240 / 240 540 / 540 50 / 50
Output Total 1160 / 1160 250 / 250 50 / 50
Balance -920 / -920 290 / 290 0 / 0
SaO2 98
Nasal Cannula flow liters per 5
minute
Physical Exam
General: Comfortable
HEENT: Normocephalic
Cardiovascular: S1-S2, Regular Rhythm, Murmur (n), Rub (n) and Peripheral Edema (n)
Respiratory: Wheeze (few), Crackles (ew), Rhonchi (Scattered), Non-Labored Respirations and Stridor (n)
GI: Soft, Non Distended and Non Tender
Neurology: Awake, Alert and No Motor Deficits (Able to sit up without assistance)
Skin: Good Color, Cyanosis (n) and Other (Scattered bruising)
Labs/Micro/Reports
Lab Data
12/18/23 05:03
12/18/23 05:03
Microbiology
12/16/23 19:21 Nose MRSA Screen - Final
Staph aureus MRSA
12/17/23 20:01 Sputum Gram Stain - Preliminary
12/16/23 15:53 Blood/Venous Blood Culture - Preliminary
No Growth in 24 hours- Final report to follow
12/16/23 15:53 Blood/Venous Blood Culture - Preliminary
No Growth in 24 hours- Final report to follow
--- NOTE | 2023-12-18 13:37 | PTCARENOTE ---
Assumed care of patient this morning. He is aaox3, pleasant. Pt is stating that he does not feel well but cannot elaborate on symptoms. Pt is coughing more today than usual. Vest therapy was initiated this morning. Pt was able to bring up some thick
green/gomez sputum, which he states he has not been able to previously. He also c/o of pain to his sacrum. Pt does have a Stage 2 ulcer, at the bedside and made aware. He also has a skin tear to his R arm. RN performed wound care, see flowsheet.
Pt has a poor appetite, encouraged intake. Assessment, care and VS as charted.
[2023-12-18] MEDS: MIRALAX 17 GRAMS PO (14:42)
[2023-12-18] MEDS: NON-FORMULARY ITEM 2 UNIT NASAL (14:42)
--- NOTE | 2023-12-18 14:46 | CM ---
Patient from [facility] with Dx Acute hypoxemic respiratory failure, Possible heart failure. O2 5L. Receiving IV Abx. PT recommends skilled rehab. OT recommends HH.
Met with patient and Avis;
the patient resides with his at [facility].
He has been independent with ADLs and ambulation using his SPC.
Since he fell in September of this year he feels like his mobility has been 'off and on'.
The patient uses an electric scooter to go to the dining [place].
DME - SPC, RW, scooter
Current with [facility]
SNF - [facility]
PCP - Ochoa Serrano
Pharmacy - [facility]
Discussed SNF for rehab vs d/c to home with VN. Patient and want to see how patient does in the next few days to decide. If SNF they would want [facility], otherwise home with resumption of [facility].
asking about transport options for patient and herself for medical appointments, [facility] Her daughter Tamy works and is not available until evening. Suggested [facility] and provided with
their phone # and Application for [employer] that was found online.
Phone call to [facility]; left message requesting to discuss possible referral.
Plan follow up with patient/ re; SNF vs HH.
[2023-12-18] MEDS: NON-FORMULARY ITEM 1 UNIT NASAL (20:36)
[2023-12-18] MEDS: PEPCID 40 MG PO (20:36)
[2023-12-18] MEDS: MIRALAX PO (20:36)
[2023-12-19] VITALS (13 sets, daily range): BP systolic 103–124; BP diastolic 68–82; PULSE 82; O2SAT 97; BMI 23.6
--- NOTE | 2023-12-19 04:18 | PTCARENOTE ---
assumed care of patient, pt on 5L NC 92-95%. VSS. able to make needs known. pt walked to bathroom x1 assist to have a small BM. productive cough noted but unable to spit up any sputum. some SOB on exertion. care ongoing.
[2023-12-19] MEDS: ZOSYN 100 IV ×4 (05:00→23:10)
[2023-12-19 05:21] LABS: Hematocrit 46.9 % (39.0-52.0); Mean Corpuscular Hgb 27.9 pg (27.0-31.0); Mean Corpuscular Volume 87.2 fL (80.0-94.0); Mean Platelet Volume 10.4 fL (7.4-10.4); Platelet Count 280 10^3/uL (130-400); Red Blood Cell Count 5.38 10^6/uL (4.70-6.10); Red Cell Dist. Width 14.8 % (11.5-14.5)
[2023-12-19 05:47] LABS: Blood Urea Nitrogen 22 mg/dl (9-20); Calcium 9.2 mg/dl (8.4-10.2); Carbon Dioxide 31 mmol/L (22-30); Chloride 102 mmol/L (98-107); Estimated Creatinine Clearance 45 ml/min; Glucose 94 mg/dl (70-99); Potassium 4.3 mmol/L (3.5-5.1); Sodium 137 mmol/L (135-145); eGFR > 60.00
[2023-12-19] MEDS: ADVAIR HFA 230/21 MCG INHALER 2 PUFF INH ×2 (07:51→20:10)
[2023-12-19] MEDS: VENTOLIN NEBULES 2.5 MG INH ×2 (07:51→20:09)
[2023-12-19] MEDS: MIRALAX PO (08:43)
[2023-12-19] MEDS: ELIQUIS 5 MG PO ×2 (08:51→19:41)
[2023-12-19] MEDS: ProAmatine 5 MG PO ×3 (08:51→17:29)
[2023-12-19] MEDS: FLOMAX 0.4 MG PO ×2 (08:51→19:41)
[2023-12-19] MEDS: BETAPACE 40 MG PO ×2 (08:52→19:40)
[2023-12-19] MEDS: THERAGRAN 1 TABLET PO (08:53)
[2023-12-19] MEDS: VIBRAMYCIN 100 MG PO ×2 (08:53→19:40)
[2023-12-19] MEDS: VISBIOME 1 CAP PO ×2 (08:53→19:39)
[2023-12-19] MEDS: ROBITUSSIN 200 MG PO ×4 (08:53→21:17)
[2023-12-19] MEDS: LASIX 20 MG PO (08:53)
--- NOTE | 2023-12-19 08:53 | W.PN.HOSP.TC ---
Addendum entered and electronically signed by Cory Krause MD 12/20/23 13:30:
Pneumonia was present on admission and is still being monitored, evaluated or treated
Original Note:
Today's Communication/Plan
-
Stable for telemetry
Assessment / Plan
Assessment / Plan
Acute hypoxemic respiratory failure
-Currently on 4 L of oxygen, down from 5 L, wean as tolerated
-Appreciate pulmonology input, has history of Pseudomonas, continue Zosyn and doxycycline
-Follow-up sputum Gram stain and culture
-Cleared by SPL for regular solids and thin liquids, which patient has been tolerating
-PT rec SNF
Acute heart failure with preserved ejection fraction in the setting of amyloidosis
-Echo 09/06/2023-normal biventricular size and systolic function. EF 50 to 55%. Mild to moderate TR
-Appreciate cardiology input, continue Tifamidis, and lasix 20 mg twice a day as per cards
Constipation:
-Resolved, discontinue laxatives
Stage II sacral decubitus ulcer:
-Offloading
Moderate protein calorie malnutrition:
-Start protein supplements
Other problems:
CLL
Paroxysmal atrial fibrillation: Cont Sotalol/eliquis
Coronary artery disease with stent
Cardiac amyloidosis: cont Vyndamax
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
Chronic obstructive pulmonary disease: cont Wixela
Chronic hypotension: cont Midodrine
H/O pseudomonas PNA
Ex-smoker
History of lung cancer with right sided lobectomy
Nephrolithiasis
Enlarged prostate-continue finasteride, Flomax
DVT prophylaxis�Eliquis
DNR - confirmed with pt and family in ER
Updated at bedside 12/17
Updated daughter on phone 12/18
Total time spent to see the patient on the floor, examine the patient, review data and lab results, discuss treatment plan with patient, nursing staff around 51 minutes.
Physical Exam
General: Appears to not feel well, no acute distress
HEENT: Normocephalic, Atraumatic, EOMI, MMM
Respiratory: Clear to Auscultation bilaterally
Cardiac: Normal S1/S2, Regular Rate and Rhythm
GI: Soft, Nontender, Nondistended, Normal Bowel Sounds
Extremities: No Clubbing, Cyanosis, or Edema
Neuro: Nonfocal/Grossly Intact
Psych: Calm, Cooperative
Derm: Stage II sacral decubitus ulcer
Anticipated Discharge: 24 - 48 hours
Subjective/Interval History
-
Date of Service: December 19, 2023
Patient complains of diarrhea. He reports his shortness of breath is the same. No chest pain. No fever, no vomiting.
Objective Data
-
Labs:
Laboratory Results
12/19/23
04:59
WBC 22.0 H
Hgb 15.0
Hct 46.9
Plt Count 280
Sodium 137
Potassium 4.3
Chloride 102
Carbon Dioxide 31 H
BUN 22 H
Creatinine 1.1
Glucose 94
Calcium 9.2
Vital Signs:
Vital Signs
Temp Pulse Resp BP Pulse Ox
98.2 F 73 16 114/68 95
12/19/23 04:12 12/19/23 07:56 12/19/23 07:56 12/19/23 06:00 12/19/23 07:56
I&O
12/18/23 12/19/23 12/20/23
06:59 06:59 06:59
Intake Total 540 / 540 250 / 250
Output Total 250 / 250 50 / 50
Balance 290 / 290 200 / 200
[2023-12-19] MEDS: NON-FORMULARY ITEM 2 UNIT NASAL ×2 (08:54→21:15)
[2023-12-19] MEDS: PROSCAR 5 MG PO (08:54)
[2023-12-19] MEDS: NON-FORMULARY ITEM 61 MG PO (08:55)
--- NOTE | 2023-12-19 09:08 | PN.CDI ---
CDI
- -
CDI:
Physician Documentation Request
Admit Date: 12/16/23 17:08
Dear Doctor Do,
Patient admitted for acute heart failure.
12/16 Corporate Specialist Assessment: 'During visit RD able to visualize protrusion of clavical, apparent ribs, temporal wasting and orbital area sunken in...150 lbs 2. 157 oz BMI 23.5 12/15. Pts weight previous admission listed as 160 lb 12/02
reflective of 10 lb (6%) in two weeks appropriate. With weight loss of > 5% in 1 month and < 75% estimated needs > 1 month as well as observed muscle and fat wasting pt meets AND/ASPEN criteria for moderate protein calorie malnutrition.'
Based on the above information and your assessment, which of the following most accurately represents the patient's nutritional status?
Moderate protein calorie malnutrition
Other
[place] Criteria ([facility] Hospitalist 2017)
2 or more criteria must be present for either
non severe or severe malnutrition
Note that the criteria differs related to the
presence of an acute or chronic illness
Acute Illness Chronic Illness
Energy Intake Non Severe: <75% for >7 days Non Severe: <75% for >1 month
Severe: <50% for >5 days Severe: <75% for >1 month
Weight Loss Non Severe: 1-2% over 1 week Non Severe: 5% over 1 month
5% over 1 month 7.5% over 3 months
7.5% over 3 months 10% over 6 months
1 year N/A 20% over 1 year
Severe: >2% over 1 week Severe: >5% over 1 month
>5% over 1 month >7.5% over 3 months
>7.5% over 3 months >10% over 6 months
1 year N/A >20% over 1 year
Body Fat Non Severe: Mild Decrease Non Severe: Mild Loss
Severe: Moderate Decrease Severe: Severe Loss
Muscle Mass Non Severe: Mild Decrease Non Severe: Mild Loss
Severe: Moderate Decrease Severe: Severe Loss
Fluid Accumulation Non Severe: Mild Accumulation Non Severe: Mild Accumulation
Severe: Moderate to severe Severe: Moderate to severe
accumulation accumulation
Reduced Utility Sales Representative Strength Non Severe: N/A Non Severe: N/A
Severe: Measurably reduced Severe: Measurably reduced
Additional criteria that can be used to Determine if Mild or Moderate Malnutrition (Merck Manual 2018)
Mild Moderate Severe
Albumin gm/dl <3.0 gm/dl <2.5 gm/dl <2.0 gm/dl
Pre Albumin mg/dl <15 gm/dl <10 mg/dl <5.0 mg/dl
BMI <18.5 <17 <16
Use of terms such as suspected, likely, concern for, or probable (associated with a specific diagnosis that is being evaluated, monitored, or treated as if it exists) are acceptable and can be coded in the inpatient setting, when documented at the
time of discharge.
Thank you,
Nae Lozano RN, BSN
CDI Specialist
Available via [facility] text
Please use your independent medical judgment in providing your response.
--- NOTE | 2023-12-19 11:00 | PN.CDI ---
CDI
- -
CDI:
Physician Documentation Request
Admit Date: 12/16/23 17:08
Dear Doctor Yehuda,
Patient admitted for acute heart failure.
12/16 Potassium level: 2.8
12/16 Potassium chloride 40 meq IV administered
12/16 Potassium chloride 40 meq PO administered
Based on the above, could you clarify in the progress notes, the appropriate diagnosis, if significant, that supports the above abnormalities and additional evaluation, monitoring and/or treatment rendered:
Hypokalemia
Abnormal lab value insignificant
Other
Use of terms such as suspected, likely, concern for, or probable (associated with a specific diagnosis that is being evaluated, monitored, or treated as if it exists) are acceptable and can be coded in the inpatient setting, when documented at the
time of discharge.
Thank you,
Nae Lozano RN, BSN
CDI Specialist
Available via [facility] text
Please use your independent medical judgment in providing your response.
--- NOTE | 2023-12-19 11:31 | RESPNOTE ---
patient refused vest therapy, states his stomch feels ill and he has diarrhea.
--- NOTE | 2023-12-19 12:17 | W.PN.PUL3 ---
Today's Communication / Plan
-
Continue airway clearance
Continue antibiotics
Aspiration precautions
Chest x-ray 12/19
Assessment
-
Patient is an 87-year-old male with previous history of PAF, CAD status post stents, cardiac amyloid, CLL, CHB status post PPM, recurrent pneumonias, COPD, CHF presenting with increased shortness of breath, fatigue, found to have hypoxia, 88% on
room air, required 4 L to maintain saturation 92%. Chest x-ray showed bilateral infiltrates. Patient was given Lasix and antibiotics and admitted for further management
Acute hypoxic respiratory insufficiency, 88% room air
92% on 4 L
Bibasilar pneumonia, acute
Increased lower extremity swelling, weight gain
Leukocytosis
Hyponatremia/hypokalemia
Hypocalcemia
Hyperglycemia
Immunoglobulin deficiency
Recent IVIG 1 week ago?
Patient did not tolerate
Aspiration syndrome suspected
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
History of cardiac amyloid
Chronic bronchitis
History of multiple pneumonias
Pseudomonas, MSSA
Bronchoscopy May 2023 with significant secretions throughout tracheobronchial tree
Bilateral interstitial disease, reticular thickening
No honeycomb changes
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
Severe JENNIFER, AHI 53.5, desaturation fabrice 73%
Recently started on CPAP in the last week, has yet to comply
CLL, follows with Blake Duffy
No treatment
History of C. difficile colitis, 2012
COPD with moderate obstruction
Emphysema
History of lung cancer status post resection 2003
Allergic rhinitis
[id number] history of smoking, quit 1993
Family history of lung cancer (daughter)
Family history of ALS (sister)
DNR
Plan/recommendations
At this time, patient with extremely complex medical history.
Salient features include recurrent pneumonias, worsening bibasilar pneumonia on current imaging, significant productive cough
Bronchoscopy in May 2023 with severe secretions noted
Patient apparently recently tried IVIG treatment 1 week ago, could not tolerate
Was also started on CPAP recently in the last week, has yet to comply with
Patient also describes possible aspiration syndrome
VSE suggest increased risk for aspiration I do feel he is improved, less rhonchorous on exam, appears to be less fatigued
Moving forward
Continue with broad-spectrum antibiotics. Currently on Zosy/doxycycline
MRSA screen positive. Received 1 dose of vancomycin, discontinued 12/16
Await sputum culture
Prior bronchoscopy with MSSA in May 2023.
Recurrent Pseudomonas also noted in the past
Repeat chest x-ray 12/19
Patient will require more aggressive airway clearance
continue vest therapy as able
follow cx
Depending on findings, may require infectious disease evaluation
Prior history of lung disease is noted including
He has had numerous episodes of recurrent pneumonia, treated with antibiotics in the past 6 months.
Pseudomonas x 2, has been treated with Levaquin in the past
MSSA completed Ancef
Achromobacter, treated with Bactrim
IgG levels are low, planning for outpatient IVIG treatment, according to , he did not tolerate 1 week ago
May need to touch base with hematology/oncology history of CLL noted
Sees [facility]
CHF, AFib history
Prior ECHO results are reviewed indicating normal function
Patient resumed home cardiac medications
Records suggest cardiac amyloid
Follows cardiology. Do not suspect component of heart failure at this time
He is DNR
Daughter is asking about options given multiple hospital stays. Discussed possibility of palliative care, hospice
Unclear if this has been discussed with patient/
Ongoing discussion
DVT prophylaxis-on Eliquis
GI prophylaxis-on Pepcid
Reviewed at length with patient, at bedside
Subjective Data
-
Date of Service:
Date of Service: December 19, 2023
Subjective:
Patient is subjectively improved today. Sitting in chair eating lunch. He feels he has more energy. He did have some GI symptoms in the morning including diarrhea, forego vest therapy this morning. at bedside
Objective Data
Data Reviewed
Vital Signs / I&O / Oxygen:
Vital Signs
Temp Pulse Resp BP Pulse Ox
98.3 F 70 16 124/82 93
12/19/23 11:10 12/19/23 08:53 12/19/23 07:56 12/19/23 08:53 12/19/23 08:12
Intake and Output
12/18/23 12/19/23 12/20/23
06:59 06:59 06:59
Intake Total 540 / 540 250 / 250
Output Total 250 / 250 50 / 50
Balance 290 / 290 200 / 200
SaO2 93
Nasal Cannula flow liters per 5
minute
Physical Exam
General: Comfortable
HEENT: Normocephalic
Cardiovascular: S1-S2, Regular Rhythm, Murmur (n), Rub (n) and Peripheral Edema (n)
Respiratory: Wheeze (n), Crackles (n), Rhonchi (None except with cough), Non-Labored Respirations and Stridor (n)
GI: Soft, Non Distended and Non Tender
Neurology: Awake, Alert and No Motor Deficits (Able to sit up without assistance)
Skin: Good Color, Cyanosis (n) and Other (Scattered bruising)
Labs/Micro/Reports
Lab Data
12/19/23 04:59
12/19/23 04:59
Microbiology
12/17/23 20:01 Sputum Respiratory Culture - Preliminary
Yessi albicans
12/17/23 20:01 Sputum Gram Stain - Preliminary
12/16/23 15:53 Blood/Venous Blood Culture - Preliminary
No Growth in 48 hours- Final report to follow
12/16/23 15:53 Blood/Venous Blood Culture - Preliminary
No Growth in 48 hours- Final report to follow
12/16/23 19:21 Nose MRSA Screen - Final
Staph aureus MRSA
--- NOTE | 2023-12-19 14:27 | CM ---
Patient from [facility] with Dx Acute hypoxemic respiratory failure, Possible heart failure. O2 5L. Receiving IV Abx. PT recommends skilled rehab. OT recommends HH.
Received call from patient's daughter Tamy; she says her mother has some cognitive decline and she had herself switched back to be the primary contact. Daughter expressed concerns with patient returning home and not being able to assist him
fully. Discussed PT/OT recommendations. Daughter interested in having patient go to [facility] and will come in this evening and speak with him in that regard. She agrees to let CM know tomorrow. Also discussed adding Personal Care
Services at [facility], and caregivers may benefit patient as well as .
Plan follow up with daughter tomorrow re; decision about SNF for rehab.
[2023-12-19] MEDS: PEPCID 40 MG PO (21:17)
[2023-12-20] VITALS (9 sets, daily range): BP systolic 112–128; BP diastolic 70–82; PULSE 71; O2SAT 95
--- NOTE | 2023-12-20 02:31 | PTCARENOTE ---
Pt resting comfortably in bed. Was able to ambulate with assistx1 and rw to the bathroom to void, have a small BM, and perform hygiene care. Pt denies complaints at this time, but does present with a harsh, moist, frequent cough that he states has
been ongoing for about a year. Pt attributes this to recurring pneumonias. Maintains 3L O2 with SaO2 >96.
[2023-12-20] MEDS: ZOSYN 100 IV ×4 (05:01→23:30)
[2023-12-20 05:18] LABS: Hematocrit 46.7 % (39.0-52.0); Hemoglobin 14.6 g/dL (13.0-18.0); Mean Corp Hgb Conc. 31.3 g/dL (33.0-37.0); Mean Corpuscular Hgb 27.2 pg (27.0-31.0); Mean Corpuscular Volume 87.1 fL (80.0-94.0); Platelet Count 252 10^3/uL (130-400); Red Blood Cell Count 5.36 10^6/uL (4.70-6.10); Red Cell Dist. Width 14.7 % (11.5-14.5)
[2023-12-20 05:45] LABS: Blood Urea Nitrogen 20 mg/dl (9-20); Carbon Dioxide 29 mmol/L (22-30); Chloride 103 mmol/L (98-107); Estimated Creatinine Clearance 50 ml/min; Glucose 84 mg/dl (70-99); Potassium 4.3 mmol/L (3.5-5.1); Sodium 139 mmol/L (135-145); eGFR > 60.00
--- NOTE | 2023-12-20 08:11 | PTCARENOTE ---
Assumed care of patient. No reported events overnight. Assisted patient to chair for breakfast. Vital signs stable. V-paced on monitor. Spo2 94% on 3L o2. Denies shortness of breath. Will continue to monitor.
[2023-12-20] MEDS: VENTOLIN NEBULES 2.5 MG INH ×2 (08:13→19:56)
[2023-12-20] MEDS: ADVAIR HFA 230/21 MCG INHALER 2 PUFF INH ×2 (08:13→19:57)
--- NOTE | 2023-12-20 08:45 | W.PN.PUL3 ---
Today's Communication / Plan
-
Continue vest therapy in a.m.
Add 3% saline
Chest x-ray today
Aspiration precautions
PT/OT
Continue antibiotics
Nutritional supplement as able
Assessment
-
Patient is an 87-year-old male with previous history of PAF, CAD status post stents, cardiac amyloid, CLL, CHB status post PPM, recurrent pneumonias, COPD, CHF presenting with increased shortness of breath, fatigue, found to have hypoxia, 88% on
room air, required 4 L to maintain saturation 92%. Chest x-ray showed bilateral infiltrates. Patient was given Lasix and antibiotics and admitted for further management
Acute hypoxic respiratory insufficiency, 88% room air
92% on 4 L
Bibasilar pneumonia, acute
Increased lower extremity swelling, weight gain
Leukocytosis
Hyponatremia/hypokalemia
Hypocalcemia
Hyperglycemia
Immunoglobulin deficiency
Recent IVIG 1 week ago?
Patient did not tolerate
Aspiration syndrome suspected
Conditions present PHOTOGRAPHIC DOUBLE:
History of cardiac amyloid
Chronic bronchitis
History of multiple pneumonias
Pseudomonas, MSSA
Bronchoscopy May 2023 with significant secretions throughout tracheobronchial tree
Bilateral interstitial disease, reticular thickening
No honeycomb changes
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
Severe JENNIFER, AHI 53.5, desaturation fabrice 73%
Recently started on CPAP in the last week, has yet to comply
CLL, follows with Blake Duffy
No treatment
History of C. difficile colitis, 2012
COPD with moderate obstruction
Emphysema
History of lung cancer status post resection 2003
Allergic rhinitis
[id number] history of smoking, quit 1993
Family history of lung cancer (daughter)
Family history of ALS (sister)
DNR
Plan/recommendations
At this time, patient with extremely complex medical history.
Salient features include recurrent pneumonias, worsening bibasilar pneumonia on current imaging, significant productive cough
Bronchoscopy in May 2023 with severe secretions noted
Patient apparently recently tried IVIG treatment 1 week ago, could not tolerate
Was also started on CPAP recently in the last week, has yet to comply with
Patient also describes possible aspiration syndrome
VSE suggest increased risk for aspiration I do feel he is improved, less rhonchorous on exam, appears to be less fatigued
Moving forward
Continue with broad-spectrum antibiotics. Currently on Zosy/doxycycline
MRSA screen positive. Received 1 dose of vancomycin, discontinued 12/16
Await sputum culture
Prior bronchoscopy with MSSA in May 2023.
Recurrent Pseudomonas also noted in the past
Repeat chest x-ray 12/19
Patient will require more aggressive airway clearance
continue vest therapy as able. We will add 3% saline
follow cx
Depending on findings, may require infectious disease evaluation
Prior history of lung disease is noted including
He has had numerous episodes of recurrent pneumonia, treated with antibiotics in the past 6 months.
Pseudomonas x 2, has been treated with Levaquin in the past
MSSA completed Ancef
Achromobacter, treated with Bactrim
IgG levels are low, planning for outpatient IVIG treatment, according to , he did not tolerate 1 week ago
May need to touch base with hematology/oncology history of CLL noted
Sees [facility]
CHF, AFib history
Prior ECHO results are reviewed indicating normal function
Patient resumed home cardiac medications
Records suggest cardiac amyloid
Follows cardiology. Do not suspect component of heart failure at this time
He is DNR
Daughter is asking about options given multiple hospital stays. Discussed possibility of palliative care, hospice
Unclear if this has been discussed with patient/
Ongoing discussion
DVT prophylaxis-on Eliquis
GI prophylaxis-on Pepcid
Reviewed at length with patient
Subjective Data
-
Date of Service:
Date of Service: December 20, 2023
Subjective:
Patient is slowly improving. He does feel stronger, less short of breath. Still finds it difficult to expectorate
Objective Data
Data Reviewed
Vital Signs / I&O / Oxygen:
Vital Signs
Temp Pulse Resp BP Pulse Ox
97.9 F 76 20 122/78 96
12/20/23 08:16 12/20/23 08:15 12/20/23 08:15 12/20/23 06:00 12/20/23 08:15
Intake and Output
12/19/23 12/20/23 12/21/23
06:59 06:59 06:59
Intake Total 250 / 250 780 / 780
Output Total 50 / 50 200 / 200
Balance 200 / 200 580 / 580
SaO2 96
Nasal Cannula flow liters per 4
minute
Physical Exam
General: Comfortable
HEENT: Normocephalic
Cardiovascular: S1-S2, Regular Rhythm, Murmur (n), Rub (n) and Peripheral Edema (n)
Respiratory: Wheeze (n), Crackles (n), Rhonchi (None except with cough), Non-Labored Respirations and Stridor (n)
GI: Soft, Non Distended and Non Tender
Neurology: Awake, Alert and No Motor Deficits (Able to sit up without assistance)
Skin: Good Color, Cyanosis (n) and Other (Scattered bruising)
Labs/Micro/Reports
Lab Data
12/20/23 04:58
12/20/23 04:58
Microbiology
12/16/23 15:53 Blood/Venous Blood Culture - Preliminary
No Growth in 72 hours- Final report to follow
12/16/23 15:53 Blood/Venous Blood Culture - Preliminary
No Growth in 72 hours- Final report to follow
12/17/23 20:01 Sputum Respiratory Culture - Preliminary
Yessi albicans
12/17/23 20:01 Sputum Gram Stain - Preliminary
12/16/23 19:21 Nose MRSA Screen - Final
Staph aureus MRSA
--- NOTE | 2023-12-20 08:46 | W.PN.HOSP.TC ---
Today's Communication/Plan
-
Discharge to short-term rehab tomorrow if bed available
Assessment / Plan
Assessment / Plan
Acute hypoxemic respiratory failure
Acute bacterial pneumonia
-Currently on 2 L of oxygen, down from 5 L, wean as tolerated
-Appreciate pulmonology input, has history of Pseudomonas, continue Zosyn and doxycycline
-Follow-up sputum Gram stain and culture
-Cleared by SPL for regular solids and thin liquids, which patient has been tolerating
-PT rec SNF, likely can be discharged to short-term rehab tomorrow on oral antibiotics if bed available
Acute heart failure with preserved ejection fraction in the setting of amyloidosis
-Echo 09/06/2023-normal biventricular size and systolic function. EF 50 to 55%. Mild to moderate TR
-Appreciate cardiology input, continue Tifamidis, and lasix 20 mg twice a day as per cards
Constipation:
-Resolved, discontinue laxatives
Stage II sacral decubitus ulcer:
-Offloading
Moderate protein calorie malnutrition:
-Start protein supplements
Other problems:
CLL
Paroxysmal atrial fibrillation: Cont Sotalol/eliquis
Coronary artery disease with stent
Cardiac amyloidosis: cont Vyndamax
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
Chronic obstructive pulmonary disease: cont Wixela
Chronic hypotension: cont Midodrine
H/O pseudomonas PNA
Ex-smoker
History of lung cancer with right sided lobectomy
Nephrolithiasis
Enlarged prostate-continue finasteride, Flomax
DVT prophylaxis�Eliquis
DNR - confirmed with pt and family in ER
Updated at bedside 12/17
Updated daughter on phone 12/18
Updated daughter on phone 12/19
Total time spent to see the patient on the floor, examine the patient, review data and lab results, discuss treatment plan with patient, nursing staff around 41 minutes.
Physical Exam
General: No acute distress
HEENT: Normocephalic, Atraumatic, EOMI, MMM
Respiratory: Clear to Auscultation bilaterally
Cardiac: Normal S1/S2, Regular Rate and Rhythm
GI: Soft, Nontender, Nondistended, Normal Bowel Sounds
Extremities: No Clubbing, Cyanosis, or Edema
Neuro: Nonfocal/Grossly Intact
Psych: Calm, Cooperative
Derm: Stage II sacral decubitus ulcer
Anticipated Discharge: Within 24 hours
Subjective/Interval History
-
Date of Service: December 20, 2023
Patient denies shortness of breath. He continues to cough. No fever, no vomiting.
Objective Data
-
Labs:
Laboratory Results
12/20/23
04:58
WBC 22.0 H
Hgb 14.6
Hct 46.7
Plt Count 252
Sodium 139
Potassium 4.3
Chloride 103
Carbon Dioxide 29
BUN 20
Creatinine 1.0
Glucose 84
Calcium 9.0
Vital Signs:
Vital Signs
Temp Pulse Resp BP Pulse Ox
97.9 F 76 20 122/78 96
12/20/23 08:16 12/20/23 08:15 12/20/23 08:15 12/20/23 06:00 12/20/23 08:15
I&O
12/19/23 12/20/23 12/21/23
06:59 06:59 06:59
Intake Total 250 / 250 780 / 780
Output Total 50 / 50 200 / 200
Balance 200 / 200 580 / 580
--- NOTE | 2023-12-20 09:54 | PN.CDI ---
CDI
- -
CDI:
Physician Documentation Request
Admit Date: 12/16/23 17:08
Dear Doctor Do,
Patient admitted with acute heart failure.
H&P: 'Acute hypoxemic respiratory insufficiency:
-Generally there is one primary process and in this case I believe it is bacterial pneumonia. The patient's history is more consistent with pneumonia than acute congestive heart failure. proBNP noted but I believe this is a byproduct of the
patient's pneumatic process
-With history of Pseudomonas pneumonia will give Zosyn. The patient has had a positive MRSA screen and will give Vanco.'
12/17 Pulmonary PN: 'Bibasilar pneumonia, acute...History of multiple pneumonias, Pseudomonas, MSSA'
12/18 Hospitalist PN: 'Appreciate pulmonology input, has history of Pseudomonas, continue Zosyn and doxycycline'
The diagnosis of pneumonia was documented on 12/15, but is not consistently noted in subsequent documentation.
Please clarify the following:
____ - Pneumonia was present on admission and is now resolved.
____ - Pneumonia was present on admission and is still being monitored, evaluated or treated
____ - Pneumonia was ruled out
____ - Pneumonia is still a likely, suspected, probable diagnosis
____ - Other
____ - Unable to determine
Use of terms such as suspected, likely, concern for, or probable (associated with a specific diagnosis that is being evaluated, monitored, or treated as if it exists) are acceptable and can be coded in the inpatient setting, when documented at the
time of discharge.
Thank you,
Nae Lozano RN, BSN
CDI Specialist
Available via [place] text
Please use your independent medical judgment in providing your response.
[2023-12-20] MEDS: VISBIOME 1 CAP PO ×2 (09:58→20:41)
[2023-12-20] MEDS: BETAPACE 40 MG PO ×2 (09:58→20:38)
[2023-12-20] MEDS: THERAGRAN 1 TABLET PO (09:58)
[2023-12-20] MEDS: PROSCAR 5 MG PO (10:00)
[2023-12-20] MEDS: ProAmatine 5 MG PO ×3 (10:00→17:49)
[2023-12-20] MEDS: VIBRAMYCIN 100 MG PO ×2 (10:00→20:41)
[2023-12-20] MEDS: ELIQUIS 5 MG PO ×2 (10:00→20:40)
[2023-12-20] MEDS: FLOMAX 0.4 MG PO ×2 (10:01→20:40)
[2023-12-20] MEDS: ROBITUSSIN 200 MG PO ×4 (10:02→20:41)
[2023-12-20] MEDS: NON-FORMULARY ITEM 1 UNIT NASAL (10:04)
[2023-12-20] MEDS: NON-FORMULARY ITEM 61 MG PO (10:08)
--- NOTE | 2023-12-20 10:10 | CM ---
Addendum entered by Laverne Rocha RN 12/20/23 17:02:
Patient declined by [facility] SNFs- no available bed. No response from call to Vianca Cuenca [facility].
Spoke with Vianca Burrell [facility]; patient is accepted for Monday. Ph for report to payroll supervisor [phone], she will c/b with fax.
Spoke with patient's daughter Tamy; she agrees with [facility] Monday.
Message to Dr Krause; SNF bed able to be arranged for 12/21.
Plan [facility] Thursday 12/21.
Original Note:
Patient from [facility] with Dx Acute hypoxemic respiratory failure, Possible heart failure. O2 4L. Vest therapy. Receiving IV Abx. PT recommends skilled rehab. OT recommends HH.
Messages from Yazmin Krause and Ugo; patient will probably be ready for d/c tomorrow and will not need IV Abx or vest therapy after d/c.
Spoke with Vianca Mayer [facility]; they will not have an available SNF bed for this patient.
Spoke with patient's daughter Tamy; she spoke with her father yesterday evening and he agrees to short term SNF for rehab. Daughter was made aware that [facility] will not have a bed for him. Discussed alternate SNFs and provided MC
ratings. Tamy chose [facility] (first choice), [facility] and [facility]. Daughter agrees to provide a bottle of his Vyndamax to the SNF if requested, due to cost for SNF to otherwise provide.
SNF referrals placed.
Phone call to [facility]; left message requesting review/response to referral.
Plan follow up SNF referrals.
[2023-12-20] MEDS: SODIUM CHLORIDE 3% FOR INHALATION 1 VIAL INH (10:15)
--- NOTE | 2023-12-20 10:20 | PTCARENOTE ---
Patient tolerated breakfast and had his supplemental ensure drink. O2 weaned to 2L, spo2 94%.
--- NOTE | 2023-12-20 13:00 | PTCARENOTE ---
Patient to xray department for 2 view chest xray then transferred to 4th floor room 422. Gabi MARTINEZ given report. All belongings with the patient.
[2023-12-20] MEDS: NON-FORMULARY ITEM NASAL (20:40)
[2023-12-20] MEDS: PEPCID 40 MG PO (20:41)
[2023-12-21] VITALS (7 sets, daily range): BP systolic 119–132; BP diastolic 67–78; PULSE 72; O2SAT 95; BMI 24.0
[2023-12-21] MEDS: ZOSYN 100 IV ×4 (05:13→23:32)
[2023-12-21 07:35] LABS: Glucose - Point of Care 99 mg/dl (70-99)
[2023-12-21] MEDS: FLOMAX 0.4 MG PO ×2 (08:00→20:13)
[2023-12-21] MEDS: PROSCAR 5 MG PO (08:00)
[2023-12-21] MEDS: ROBITUSSIN 200 MG PO ×4 (08:00→21:07)
[2023-12-21] MEDS: VISBIOME 1 CAP PO ×2 (08:00→20:13)
[2023-12-21] MEDS: BETAPACE 40 MG PO ×2 (08:00→20:12)
[2023-12-21] MEDS: VIBRAMYCIN 100 MG PO ×2 (08:01→20:13)
[2023-12-21] MEDS: ProAmatine 5 MG PO ×3 (08:01→17:39)
[2023-12-21] MEDS: ELIQUIS 5 MG PO ×2 (08:02→20:13)
[2023-12-21] MEDS: THERAGRAN 1 TABLET PO (08:02)
[2023-12-21] MEDS: NON-FORMULARY ITEM 61 MG PO (08:02)
[2023-12-21] MEDS: NON-FORMULARY ITEM 1 UNIT NASAL (08:10)
[2023-12-21] MEDS: VENTOLIN NEBULES 2.5 MG INH ×2 (08:19→19:45)
[2023-12-21] MEDS: SODIUM CHLORIDE 3% FOR INHALATION 1 VIAL INH (08:19)
[2023-12-21] MEDS: ADVAIR HFA 230/21 MCG INHALER 2 PUFF INH ×2 (08:19→19:45)
--- NOTE | 2023-12-21 08:53 | W.PN.HOSP.TC ---
Today's Communication/Plan
-
Check C. difficile
Imodium as needed if C. difficile negative
Discharge to short-term rehab tomorrow
Assessment / Plan
Assessment / Plan
Acute hypoxemic respiratory failure
Acute bacterial pneumonia
-Currently on 2 L of oxygen, down from 5 L, wean as tolerated
-Appreciate pulmonology input, has history of Pseudomonas, continue Zosyn and doxycycline
-Follow-up sputum Gram stain and culture
-Cleared by SPL for regular solids and thin liquids, which patient has been tolerating
-PT rec SNF, likely can be discharged to short-term rehab tomorrow on oral antibiotics if bed available
Diarrhea
-Likely antibiotic associated
-Check C. difficile
-Imodium as needed if C. difficile negative
Acute heart failure with preserved ejection fraction in the setting of amyloidosis
-Echo 09/06/2023-normal biventricular size and systolic function. EF 50 to 55%. Mild to moderate TR
-Appreciate cardiology input, continue Tifamidis, and lasix 20 mg twice a day as per cards
Constipation:
-Resolved, discontinued laxatives
Stage II sacral decubitus ulcer:
-Offloading
Moderate protein calorie malnutrition:
-Started protein supplements
Other problems:
CLL
Paroxysmal atrial fibrillation: Cont Sotalol/eliquis
Coronary artery disease with stent
Cardiac amyloidosis: cont Vyndamax
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
Chronic obstructive pulmonary disease: cont Wixela
Chronic hypotension: cont Midodrine
H/O pseudomonas PNA
Ex-smoker
History of lung cancer with right sided lobectomy
Nephrolithiasis
Enlarged prostate-continue finasteride, Flomax
DVT prophylaxis�Eliquis
DNR - confirmed with pt and family in ER
Updated at bedside 12/17
Updated daughter on phone 12/18
Updated daughter on phone 12/19
Updated daughter on phone 12/20
Total time spent to see the patient on the floor, examine the patient, review data and lab results, discuss treatment plan with patient, nursing staff around 40 minutes.
Physical Exam
General: No acute distress
HEENT: Normocephalic, Atraumatic, EOMI, MMM
Respiratory: Clear to Auscultation bilaterally
Cardiac: Normal S1/S2, Regular Rate and Rhythm
GI: Soft, Nontender, Nondistended, Normal Bowel Sounds
Extremities: No Clubbing, Cyanosis, or Edema
Neuro: Nonfocal/Grossly Intact
Psych: Calm, Cooperative
Derm: Stage II sacral decubitus ulcer
Anticipated Discharge: Within 24 hours
Subjective/Interval History
-
Date of Service: December 21, 2023
Patient complains of diarrhea. He has had 4 episodes of loose stools. Continues to cough. No shortness of breath. No fever, no vomiting.
Objective Data
-
Labs:
Laboratory Results
12/21/23
08:34
WBC Pending
Hgb Pending
Hct Pending
Plt Count Pending
Sodium Pending
Potassium Pending
Chloride Pending
Carbon Dioxide Pending
BUN Pending
Creatinine Pending
Glucose Pending
Calcium Pending
Vital Signs:
Vital Signs
Temp Pulse Resp BP Pulse Ox
98.0 F 77 18 123/78 97
12/21/23 03:35 12/21/23 08:23 12/21/23 08:23 12/21/23 08:00 12/21/23 08:23
I&O
12/20/23 12/21/23 12/22/23
06:59 06:59 06:59
Intake Total 780 / 780 1740 / 1740
Output Total 200 / 200
Balance 580 / 580 1740 / 1740
[2023-12-21 10:25] LABS: Blood Urea Nitrogen 21 mg/dl (9-20); Carbon Dioxide 33 mmol/L (22-30); Chloride 103 mmol/L (98-107); Estimated Creatinine Clearance 50 ml/min; Glucose 113 mg/dl (70-99); Potassium 3.6 mmol/L (3.5-5.1); Sodium 140 mmol/L (135-145); eGFR > 60.00
--- NOTE | 2023-12-21 10:29 | CM ---
TC from [facility] to confirm bed for tomorrow.
Family's first choice is [facility]. TC to Susana from [facility] they will be able to accept patient tomorrow.
Susana will contact daughter.
Josi rodriguez [facility] updated.
Plan: [facility] tomorrow via van, daughter agreeable to costs.
[facility]
Report# [phone] x [phone]
--- NOTE | 2023-12-21 10:46 | CM ---
Patient seen at bedside. IMM sihned & in chart.
Daughter Tamy ([phone]) on phone during visit. Would like the patient to go to [facility].
Spoke to Susana at [facility] & has a bed available tomorrow.
Daughter agreeable to transport via wheelchair van. Time TBD.
PLAN: Discharge tomorrow to [facility] via wheelchair van.
[facility]
Report [phone] x [phone]
[2023-12-21 11:11] LABS: Hemoglobin 14.1 g/dL (13.0-18.0); Mean Corpuscular Hgb 27.3 pg (27.0-31.0); Mean Corpuscular Volume 85.3 fL (80.0-94.0); Red Blood Cell Count 5.16 10^6/uL (4.70-6.10); Red Cell Dist. Width 14.6 % (11.5-14.5); White Blood Cell Count 21.5 10^3/uL (4.8-10.8)
--- NOTE | 2023-12-21 11:24 | WOUNDNOTE ---
R ARM (JUST DISTAL TO ANTECUBITAL SPACE)
--- NOTE | 2023-12-21 11:30 | WOUNDNOTE ---
[facility] RN note: Patient seen for HAPI report for stage 2 sacral pressure injury. Patient has a small healing stage 2 sacral/coccyx pressure injury. He tends to lay on his back in bed. He has an air chair cushion in recliner chair. R arm skin tear
dressing changed. Silicone border foam maintained on sacrum. Patient's appetite fair-poor. Skin on heels intact. Patient has LE edema (L>R).
--- NOTE | 2023-12-21 11:38 | WOUNDNOTE ---
[facility] RN note: Patient seen for HAPI report for stage 2 sacral pressure injury. Patient has a small healing stage 2 sacral/coccyx pressure injury. He tends to lay on his back in bed. He has an air chair cushion in recliner chair. R arm skin tear
dressing changed. Silicone border foam maintained on sacrum. Patient's appetite fair-poor. Skin on heels intact. Patient has LE edema (L>R). +Pedal pulses heard via portable Doppler. Patient stated LLE edema better than before. He contributes the
LLE edema to his fall back in September which has slowly improved. He denies pain. 11/21/23 LLE venous Doppler negative for DVT. 11/21/23 Arterial Doppler normal study. Updated Dr. Krause who approved wound care, air mattress or air overlay and bilateral knee
high tubigrip as tolerated (may remove q hs). t/c SPD and ordered Tubigrip (Medigrip). Updated JUAN Ashley. Care plan and discharge instructions to be updated. Plan is transfer to [facility] rehab tomorrow.
[2023-12-21 11:57] LABS: Mean Platelet Volume 10.5 fL (7.4-10.4); Platelet Count 194 10^3/uL (130-400)
[2023-12-21] MEDS: IMODIUM 2 MG PO (13:53)
--- NOTE | 2023-12-21 14:20 | PN.CDI ---
CDI
- -
CDI:
Physician Documentation Request
Admit Date: 12/16/23 17:08
Dear Doctor Do,
Patient admitted for acute heart failure.
12/17 PCN: 'Pt was able to bring up some thick green/gomez sputum'
12/19 Pulmonary PN: 'Aspiration syndrome suspected...He has had numerous episodes of recurrent pneumonia, treated with antibiotics in the past 6 months. Pseudomonas x 2, has been treated with Levaquin in the past MSSA completed Ancef'
12/19 Hospitalist PN: 'Acute bacterial pneumonia...Appreciate pulmonology input, has history of Pseudomonas, continue Zosyn and doxycycline -Follow-up sputum Gram stain and culture'
12/16 Sputum culture: Yessi albicans
Based on the above, could you clarify in the Progress Notes further specificity regarding the known, suspected or likely type of pneumonia you are treating (recognizing the specific organism may not be known)?
Examples
Aspiration Pneumonia - indicate substance such as food or vomitus, oils or other solids or liquids
Staph Pneumonia - indicate if MRSA or MSSA
Gram negative Pneumonia - indicate if Pseudomonas, or other
Other organism - specify known or suspected type
Unable to determine
Other type
Use of terms such as suspected, likely, concern for, or probable (associated with a specific diagnosis that is being evaluated, monitored, or treated as if it exists) are acceptable and can be coded in the inpatient setting, when documented at the
time of discharge.
Thank you,
Nae Lozano RN, BSN
CDI Specialist
Available via [place] text
Please use your independent medical judgment in providing your response.
--- NOTE | 2023-12-21 15:10 | W.PN.PUL3 ---
Today's Communication / Plan
-
Continue airway clearance
Continue with antibiotics for now
Aspiration precautions
Chest x-ray with increased bilateral pleural parenchymal disease 12/19
Question increased dose of Lasix or one-time dose?
Reviewed with primary service
Assessment
-
Patient is an 87-year-old male with previous history of PAF, CAD status post stents, cardiac amyloid, CLL, CHB status post PPM, recurrent pneumonias, COPD, CHF presenting with increased shortness of breath, fatigue, found to have hypoxia, 88% on
room air, required 4 L to maintain saturation 92%. Chest x-ray showed bilateral infiltrates. Patient was given Lasix and antibiotics and admitted for further management
Acute hypoxic respiratory insufficiency, 88% room air
92% on 4 L
Bibasilar pneumonia, acute
Increased lower extremity swelling, weight gain
Leukocytosis
Hyponatremia/hypokalemia
Hypocalcemia
Hyperglycemia
Immunoglobulin deficiency
Recent IVIG 1 week ago?
Patient did not tolerate
Aspiration syndrome suspected
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
History of cardiac amyloid
Chronic bronchitis
History of multiple pneumonias
Pseudomonas, MSSA
Bronchoscopy May 2023 with significant secretions throughout tracheobronchial tree
Bilateral interstitial disease, reticular thickening
No honeycomb changes
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
Severe JENNIFER, AHI 53.5, desaturation fabrice 73%
Recently started on CPAP in the last week, has yet to comply
CLL, follows with [facility]
No treatment
History of C. difficile colitis, 2012
COPD with moderate obstruction
Emphysema
History of lung cancer status post resection 2003
Allergic rhinitis
[id number] history of smoking, quit 1993
Family history of lung cancer (daughter)
Family history of ALS (sister)
DNR
Plan/recommendations
At this time, patient with extremely complex medical history.
Salient features include recurrent pneumonias, worsening bibasilar pneumonia on current imaging, significant productive cough
Bronchoscopy in May 2023 with severe secretions noted
Patient apparently recently tried IVIG treatment 1 week ago, could not tolerate
Was also started on CPAP recently in the last week, has yet to comply with
Patient also describes possible aspiration syndrome
VSE suggest increased risk for aspiration I do feel he is improved, less rhonchorous on exam, appears to be less fatigued
Moving forward
Continue with broad-spectrum antibiotics. Currently on Zosy/doxycycline
MRSA screen positive. Received 1 dose of vancomycin, discontinued 12/16
Yessi noted
Prior bronchoscopy with MSSA in May 2023.
Recurrent Pseudomonas also noted in the past
C. difficile negative
Repeat chest x-ray 12/19 with persistent bilateral pleural parenchymal process. Slight increase pleural effusions
Cardiology following. Remains on Lasix therapy
Follow daily weights
Patient continue with more aggressive airway clearance
continue vest therapy as able. Continue 3% saline
Patient will continue Acapella device and airway clearance measures at rehabilitation facility
Prior history of lung disease is noted including
He has had numerous episodes of recurrent pneumonia, treated with antibiotics in the past 6 months.
Pseudomonas x 2, has been treated with Levaquin in the past
MSSA completed Ancef
Achromobacter, treated with Bactrim
IgG levels are low, planning for outpatient IVIG treatment, according to , he did not tolerate 1 week ago
May need to touch base with hematology/oncology history of CLL noted
Sees [facility], recommend close follow-up as outpatient
CHF, AFib history
Prior ECHO results are reviewed indicating normal function
Patient resumed home cardiac medications
Records suggest cardiac amyloid
Follows cardiology. Do not suspect component of heart failure at this time
He is DNR
Daughter is asking about options given multiple hospital stays. Discussed possibility of palliative care, hospice
Unclear if this has been discussed with patient/
Ongoing discussion
DVT prophylaxis-on Eliquis
GI prophylaxis-on Pepcid
Reviewed at length with patient, at bedside and daughter by phone
Subjective Data
-
Date of Service:
Date of Service: December 21, 2023
Subjective:
Patient lying in recliner. Continues to have productive cough. Feels better overall. Continues with aspiration precautions. Denies hemoptysis. Daughter resuming by phone, at bedside
Objective Data
Data Reviewed
Vital Signs / I&O / Oxygen:
Vital Signs
Temp Pulse Resp BP Pulse Ox
97.5 F 72 20 128/68 98
12/21/23 12:00 12/21/23 12:00 12/21/23 12:00 12/21/23 12:00 12/21/23 12:00
Intake and Output
12/20/23 12/21/23 12/22/23
06:59 06:59 06:59
Intake Total 780 / 780 1740 / 1740
Output Total 200 / 200
Balance 580 / 580 1740 / 1740
SaO2 98
Nasal Cannula flow liters per 4
minute
Physical Exam
General: Comfortable
HEENT: Normocephalic
Cardiovascular: S1-S2, Regular Rhythm, Murmur (n), Rub (n) and Peripheral Edema (n)
Respiratory: Wheeze (n), Crackles (n), Rhonchi (None except with cough), Non-Labored Respirations and Stridor (n)
GI: Soft, Non Distended and Non Tender
Neurology: Awake, Alert and No Motor Deficits (Able to sit up without assistance)
Skin: Good Color, Cyanosis (n) and Other (Scattered bruising)
Labs/Micro/Reports
Lab Data
12/21/23 08:34
12/21/23 08:34
Microbiology
12/21/23 12:12 Feces/Stool C. difficile GDH Antigen & Toxins - Final
Negative for toxigenic C.difficile
12/16/23 15:53 Blood/Venous Blood Culture - Preliminary
No Growth in 4 days- Final report to follow
12/16/23 15:53 Blood/Venous Blood Culture - Preliminary
No Growth in 4 days- Final report to follow
12/17/23 20:01 Sputum Respiratory Culture - Final
Yessi albicans
12/17/23 20:01 Sputum Gram Stain - Final
[2023-12-21] MEDS: LASIX 40 MG IV (15:56)
[2023-12-21] MEDS: NON-FORMULARY ITEM NASAL (21:06)
[2023-12-21] MEDS: PEPCID 40 MG PO (21:07)
[2023-12-22 03:37] VITALS: BP 129/75
[2023-12-22] MEDS: ZOSYN 100 IV ×2 (05:14→12:34)
[2023-12-22 06:00] VITALS: BMI 23.4
[2023-12-22 07:00] VITALS: BP 111/66
[2023-12-22] MEDS: ADVAIR HFA 230/21 MCG INHALER 2 PUFF INH (07:22)
[2023-12-22] MEDS: SODIUM CHLORIDE 3% FOR INHALATION 1 VIAL INH (07:22)
[2023-12-22] MEDS: VENTOLIN NEBULES 2.5 MG INH (07:22)
[2023-12-22 08:13] LABS: Hematocrit 43.8 % (39.0-52.0); Hemoglobin 13.7 g/dL (13.0-18.0); Mean Corp Hgb Conc. 31.3 g/dL (33.0-37.0); Mean Corpuscular Hgb 27.3 pg (27.0-31.0); Mean Corpuscular Volume 87.3 fL (80.0-94.0); Mean Platelet Volume 10.8 fL (7.4-10.4); Platelet Count 170 10^3/uL (130-400); Red Blood Cell Count 5.02 10^6/uL (4.70-6.10); Red Cell Dist. Width 14.6 % (11.5-14.5); White Blood Cell Count 19.1 10^3/uL (4.8-10.8)
[2023-12-22] MEDS: NON-FORMULARY ITEM 2 UNIT NASAL (08:20)
[2023-12-22 08:32] LABS: Blood Urea Nitrogen 20 mg/dl (9-20); Carbon Dioxide 33 mmol/L (22-30); Chloride 100 mmol/L (98-107); Estimated Creatinine Clearance 50 ml/min; Glucose 76 mg/dl (70-99); Potassium 3.7 mmol/L (3.5-5.1); Sodium 139 mmol/L (135-145); eGFR > 60.00
[2023-12-22] MEDS: ROBITUSSIN 200 MG PO ×2 (08:32→12:34)
[2023-12-22] MEDS: VIBRAMYCIN 100 MG PO (08:33)
[2023-12-22] MEDS: BETAPACE 40 MG PO (08:33)
[2023-12-22] MEDS: FLOMAX 0.4 MG PO (08:33)
[2023-12-22] MEDS: ProAmatine 5 MG PO ×2 (08:34→12:34)
[2023-12-22] MEDS: THERAGRAN 1 TABLET PO (08:34)
[2023-12-22] MEDS: VISBIOME 1 CAP PO (08:34)
[2023-12-22] MEDS: LASIX 20 MG PO (08:34)
[2023-12-22] MEDS: ELIQUIS 5 MG PO (08:34)
[2023-12-22] MEDS: PROSCAR 5 MG PO (08:36)
[2023-12-22] MEDS: NON-FORMULARY ITEM 61 MG PO (08:40)
--- NOTE | 2023-12-22 08:52 | W.PN.HOSP.TC ---
Today's Communication/Plan
-
Discharge to short-term rehab today
Assessment / Plan
Assessment / Plan
Acute hypoxemic respiratory failure
Acute bacterial pneumonia, unable to determine organism
-Currently on 2 L of oxygen, down from 5 L, wean as tolerated
-Appreciate pulmonology input, has history of Pseudomonas, resolving on Zosyn D6 and doxycycline D6
-Sputum culture growing Yessi albicans
-Cleared by [facility]PL for regular solids and thin liquids, which patient has been tolerating
-PT rec SNF, cleared by pulmonology for discharge to short-term rehab today, no further antibiotics needed
Diarrhea
-Likely antibiotic associated
-C. difficile negative
-Imodium as needed if C. difficile negative
Acute heart failure with preserved ejection fraction in the setting of amyloidosis
-Echo 09/06/2023-normal biventricular size and systolic function. EF 50 to 55%. Mild to moderate TR
-Weight down after Lasix 40 mg IV x 1 on 12/20
-Appreciate cardiology input, continue Tifamidis, and lasix 20 mg twice a day as per cards
Constipation:
-Resolved, discontinued laxatives
Stage II sacral decubitus ulcer:
-Offloading
Moderate protein calorie malnutrition:
-Started protein supplements
Other problems:
CLL
Paroxysmal atrial fibrillation: Cont Sotalol/eliquis
Coronary artery disease with stent
Cardiac amyloidosis: cont Vyndamax
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
Chronic obstructive pulmonary disease: cont Wixela
Chronic hypotension: cont Midodrine
H/O pseudomonas PNA
Ex-smoker
History of lung cancer with right sided lobectomy
Nephrolithiasis
Enlarged prostate-continue finasteride, Flomax
DVT prophylaxis�Eliquis
DNR - confirmed with pt and family in ER
Updated at bedside 12/17
Updated daughter on phone 12/18
Updated daughter on phone 12/19
Updated daughter on phone 12/20
Updated daughter on phone 12/21
Physical Exam
General: No acute distress
HEENT: Normocephalic, Atraumatic, EOMI, MMM
Respiratory: Clear to Auscultation bilaterally
Cardiac: Normal S1/S2, Regular Rate and Rhythm
GI: Soft, Nontender, Nondistended, Normal Bowel Sounds
Extremities: No Clubbing, Cyanosis, or Edema
Neuro: Nonfocal/Grossly Intact
Psych: Calm, Cooperative
Derm: Stage II sacral decubitus ulcer
Anticipated Discharge: Today
Subjective/Interval History
-
Date of Service: December 21, 2023
Patient's diarrhea is improved. Denies shortness of breath. Continues to have a cough. No fever, no vomiting.
Objective Data
-
Labs:
Laboratory Results
12/21/23
08:34
WBC 21.5 H
Hgb 14.1
Hct 44.0
Plt Count 194 D
Sodium 140
Potassium 3.6
Chloride 103
Carbon Dioxide 33 H
BUN 21 H
Creatinine 1.0
Glucose 113 H
Calcium 9.0
Vital Signs:
Vital Signs
Temp Pulse Resp BP Pulse Ox
97.5 F 72 20 128/68 98
12/21/23 12:00 12/21/23 12:00 12/21/23 12:00 12/21/23 12:00 12/21/23 12:00
I&O
12/20/23 12/21/23 12/22/23
06:59 06:59 06:59
Intake Total 780 / 780 1740 / 1740
Output Total 200 / 200
Balance 580 / 580 1740 / 1740
--- NOTE | 2023-12-22 09:06 | W.PN.PUL3 ---
Today's Communication / Plan
-
Consider discontinuing antibiotics at time of discharge
Evaluated as outpatient for chronic macrolide therapy
Vest therapy, 3% saline, budesonide, albuterol we will continue with outpatient
Lets discontinue Advair
Assessment
-
Patient is an 87-year-old male with previous history of PAF, CAD status post stents, cardiac amyloid, CLL, CHB status post PPM, recurrent pneumonias, COPD, CHF presenting with increased shortness of breath, fatigue, found to have hypoxia, 88% on
room air, required 4 L to maintain saturation 92%. Chest x-ray showed bilateral infiltrates. Patient was given Lasix and antibiotics and admitted for further management
Acute hypoxic respiratory insufficiency, 88% room air
92% on 4 L
Bibasilar pneumonia, acute
Increased lower extremity swelling, weight gain
Leukocytosis
Hyponatremia/hypokalemia
Hypocalcemia
Hyperglycemia
Immunoglobulin deficiency
Recent IVIG 1 week ago?
Patient did not tolerate
Aspiration syndrome suspected
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
History of cardiac amyloid
Chronic bronchitis
History of multiple pneumonias
Pseudomonas, MSSA
Bronchoscopy May 2023 with significant secretions throughout tracheobronchial tree
Bilateral interstitial disease, reticular thickening
No honeycomb changes
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
Severe JENNIFER, AHI 53.5, desaturation fabrice 73%
Recently started on CPAP in the last week, has yet to comply
CLL, follows with [place]
No treatment
History of C. difficile colitis, 2012
COPD with moderate obstruction
Emphysema
History of lung cancer status post resection 2003
Allergic rhinitis
[id number] history of smoking, quit 1993
Family history of lung cancer (daughter)
Family history of ALS (sister)
DNR
Plan/recommendations
At this time, patient with extremely complex medical history.
Salient features include recurrent pneumonias, worsening bibasilar pneumonia on current imaging, significant productive cough
Bronchoscopy in May 2023 with severe secretions noted
Patient apparently recently tried IVIG treatment 1 week ago, could not tolerate
Was also started on CPAP recently in the last week, has yet to comply with
Patient also describes possible aspiration syndrome
VSE suggest increased risk for aspiration I do feel he is improved, less rhonchorous on exam, appears to be less fatigued
Moving forward
Continue with broad spectrum antibiotics. Currently on Zosy/doxycycline
MRSA screen positive. Received 1 dose of vancomycin, discontinued 12/16
Yessi noted
Patient has received 6 days. Given stool incontinence, loose stool, negative C. difficile, consider stopping antibiotics at time of discharge
May consider long-term macrolide therapy but this will be determined as an outpatient
Prior bronchoscopy with MSSA in May 2023.
Recurrent Pseudomonas also noted in the past
He does feel vest therapy and 3% saline are helping
Therefore we will continue this
He should do this first thing in the morning. Can always have a session in the p.m. if he feels it is helping
Repeat chest x-ray 12/19 with persistent bilateral pleural parenchymal process. Slight increase pleural effusions
Cardiology following. Remains on Lasix therapy
Received additional dose of Lasix yesterday p.m.
Weight down 2 kg
Patient continue with more aggressive airway clearance
continue vest therapy as able. Continue 3% saline.
Patient will continue Acapella device and airway clearance measures at rehabilitation facility
Add budesonide twice daily, continue albuterol twice daily, 3% saline in the morning
Discontinue Advair
The above will continue at rehabilitation and should continue at home
Will likely need to follow-up in our office in the short-term
Prior history of lung disease is noted including
He has had numerous episodes of recurrent pneumonia, treated with antibiotics in the past 6 months.
Pseudomonas x 2, has been treated with Levaquin in the past
MSSA completed Ancef
Achromobacter, treated with Bactrim
IgG levels are low, planning for outpatient IVIG treatment, according to , he did not tolerate 1 week ago
May need to touch base with hematology/oncology history of CLL noted
Sees [facility], recommend close follow-up as outpatient
CHF, AFib history
Prior ECHO results are reviewed indicating normal function
Patient resumed home cardiac medications
Records suggest cardiac amyloid
Follows cardiology. Do not suspect component of heart failure at this time
He is DNR
Daughter is asking about options given multiple hospital stays. Discussed possibility of palliative care, hospice
Unclear if this has been discussed with patient/
Ongoing discussion
DVT prophylaxis-on Eliquis
GI prophylaxis-on Pepcid
Reviewed at length with patient, primary service
Disposition efforts
Subjective Data
-
Date of Service:
Date of Service: December 22, 2023
Subjective:
Patient continues to improve. White count slowly trending down. Continues to cough up plugs of mucus, feels vest therapy and saline is helping. Continues to have loose stool, stool incontinence
Objective Data
Data Reviewed
Vital Signs / I&O / Oxygen:
Vital Signs
Temp Pulse Resp BP Pulse Ox
97.4 F 70 14 111/66 86
12/22/23 07:00 12/22/23 07:26 12/22/23 07:26 12/22/23 07:00 12/22/23 07:59
Intake and Output
12/21/23 12/22/23 12/23/23
06:59 06:59 06:59
Intake Total 1740 / 1740 840 / 840
Output Total 240 / 240
Balance 1740 / 1740 600 / 600
SaO2 86
Nasal Cannula flow liters per 2
minute
Physical Exam
General: Comfortable
HEENT: Normocephalic
Cardiovascular: S1-S2, Regular Rhythm, Murmur (n), Rub (n) and Peripheral Edema (1-2+)
Respiratory: Wheeze (n), Crackles (n), Rhonchi (None except with cough), Non-Labored Respirations and Stridor (n)
GI: Soft, Non Distended and Non Tender
Neurology: Awake, Alert and No Motor Deficits (Able to sit up without assistance)
Skin: Good Color, Cyanosis (n) and Other (Scattered bruising)
Labs/Micro/Reports
Lab Data
12/22/23 07:00
12/22/23 07:00
Microbiology
12/16/23 15:53 Blood/Venous Blood Culture - Final
No Growth - Final Report
12/16/23 15:53 Blood/Venous Blood Culture - Final
No Growth - Final Report
12/21/23 12:12 Feces/Stool C. difficile GDH Antigen & Toxins - Final
Negative for toxigenic C.difficile
12/17/23 20:01 Sputum Respiratory Culture - Final
Yessi albicans
12/17/23 20:01 Sputum Gram Stain - Final
[2023-12-22 11:00] VITALS: BP 96/56
--- NOTE | 2023-12-22 11:02 | CM ---
Spoke with Susana at [facility]. Bed available today. IMM signed yesterday.
TT from Dr. Krause and Dr. Ku regarding pulmonary vest.
Susana states they can take patient with CPAP if family brings it to the facility from home.
They cannot take the patient with a pulmonary vest.
Called other SNF's ([facility]) regarding if they could take patient with pulmonary vest and they cannot.
Daughter updated and wants the patient to go to [facility].
Daughter will bring CPAP to [facility].
PLAN Discharge today to [facility] via ambulance. TIME: 1415
[facility]
Report [phone] x [phone]
[2023-12-22] MEDS: IMODIUM 2 MG PO (11:15)
[2023-12-22 14:45] VITALS: BP 126/70
--- NOTE | 2023-12-22 16:09 | W.DCSUMMARY ---
Discharge Summary
Discharge Data
Date of Admission: 12/16/23
Date of Discharge: 12/22/23
-
Pending Results: No
Hospital Course
Discharge diagnosis:
Acute hypoxic respiratory failure
Acute bacterial pneumonia
Antibiotic associated diarrhea
Acute heart failure with a preserved ejection fraction in the setting of cardiac amyloidosis
Stage II sacral decubitus ulcer
Moderate protein calorie malnutrition
Chronic lymphocytic leukemia
Paroxysmal atrial fibrillation on Eliquis
Cardiac amyloidosis
Coronary artery disease
Chronic hypotension on midodrine
History of lung cancer status post right-sided lobectomy
Consults: Cardiology, pulmonology
CXR:
Progressive changes as described. As stated previously, the findings could represent congestive heart failure with interstitial and alveolar edema versus pneumonia.
Hospital course:
87-year-old male with a past medical history of cardiac amyloidosis, CHF, COPD, CLL, paroxysmal atrial fibrillation, CAD, and lung cancer status post right-sided lobectomy was admitted for acute hypoxic respiratory failure due to pneumonia and CHF.
Patient was seen in conjunction with cardiology. He did receive IV Lasix, and cardiology recommends continuing his usual Lasix dose at home, 20 mg twice a week. He should also continue his Vyndamax for his cardiac amyloidosis.
Patient was seen in conjunction with pulmonology. He has a history of Pseudomonas pneumonia. He was treated with Zosyn and doxycycline. Sputum cultures did not isolate a bacterial organism. He received 6 days of Zosyn and doxycycline. He had
antibiotic associated diarrhea. C. difficile was negative. Pulmonology states that he does not need any more antibiotics upon discharge.
Patient's hypoxia improved. He required as much as 5 L of oxygen, and was down to 2 L upon discharge. Pulmonology recommends that he be discharged on saline nebs, budesonide nebs, and albuterol nebs. Family can bring his CPAP to the rehab to use.
Pulmonology office will arrange for him to get vest therapy outpatient.
Patient's multiple medical conditions have been optimized. He is discharged to short-term rehab. He needs to follow-up with his primary care doctor in 1 week, and pulmonology as directed.
Disposition: Short-term rehab
Discharge planning: Required 51 minutes
Discharge Plan
-
Patient Disposition: [facility]NF
Discharge Diagnosis/Procedures: Acute hypoxic respiratory failure, pneumonia, antibiotic associated diarrhea, acute heart failure with preserved ejection fraction, stage II sacral decubitus ulcer, protein calorie malnutrition, chronic lymphocytic
leukemia, paroxysmal atrial fibrillation, cardiac amyloidosis
Condition: Fair
Diet: 2 Gram Sodium and Restrict fluids to 48 oz
Activity: As tolerated
Activity Restrictions/Additional Instructions:
Please follow-up with your primary care doctor 1 week after you leave rehab, and pulmonology as directed.
Wound Care Instructions
Sacral/coccyx-clean with saline, silicone border foam, change q 3 days and prn loosened dressing.
R arm skin tear-clean with saline, silicone border foam, change q 3 days and prn loosened dressing.
Bilateral knee high Tubigrip as tolerated; may remove q hs; reapply q am.
Elevate heels off bed with pillow/s.
Pressure redistributing chair cushion (i.e. Air chair cushion).
Air mattress.
Follow up with wound respiratory care faculty or at wound care center call for an appointment.
Referrals:
Sharon Cooper, DO [Family Provider] -
([facility] in 3-4 weeks
[facility] in 3 mo)
Prescriptions:
New
loperamide 2 mg Capsule
2 mg PO Q4HPRN PRN (Reason: loose stool) Qty: 0 0RF
sodium chloride [NebuSal] 3 % Solution For Nebulization
4 ml inhalation R DAILY@0700 Qty: 120 0RF
guaifenesin 100 mg/5 mL Liquid
200 mg PO QID Qty: 0 0RF
budesonide 0.5 mg/2 mL Suspension For Nebulization
0.5 mg inhalation R BID Qty: 0 0RF
Continued
tamsulosin 0.4 MG capsule
0.4 mg PO BID
famotidine 40 MG tablet
40 mg PO HS
furosemide 20 MG tablet
20 mg PO .2X WEEKLY
finasteride 5 MG tablet
5 mg PO DAILY
Vyndamax 61 MG capsule
61 mg PO DAILY
multivitamin Tablet
1 tab PO DAILY
fluticasone propion-salmeterol [Wixela Inhub] 500-50 mcg/dose Blister With Device
1 inh INHALATION R Q12
albuterol sulfate 2.5 mg /3 mL (0.083 %) Solution For Nebulization
2.5 mg INHALATION R BID
sotalol 80 mg Tablet
40 mg PO BID
fluorouracil 5 % Cream
1 applic TOPICAL DAILY PRN (Reason: skin care)
ipratropium bromide 21 mcg (0.03 %) [place],Non-Aerosol
2 spray INTRANASAL BID
albuterol sulfate 90 mcg/actuation Hfa Aerosol Inhaler
2 puff INHALATION R Q4HPRN PRN (Reason: sob/wheezing)
midodrine 5 mg tablet
5 mg PO TID
guaifenesin 600 mg Tablet Extended Release
600 mg PO Q12H
cyanocobalamin (vitamin B-12) 1,000 mcg Tablet
1,000 mcg PO DAILY
acetaminophen 500 mg Tablet
500 mg PO QID
benzonatate 100 mg Capsule
100 mg PO TID PRN (Reason: Respiratory)
apixaban 5 mg Tablet
5 mg PO BID
Discontinued
zolpidem 5 mg Tablet
5 mg PO HSPRN PRN (Reason: SLEEP) Qty: 2 0RF
Visbiome 112.5 billion cell Capsule
1 cap PO .2-3X DAILY
Discharge Orders:
Discharge Patient (As Directed); Ordered 12/22/23
Ordered By: Cory Do
Discharge Date and Time
Discharge Date/Time: 12/22/23 15:43
Print Language: [place]
== END 2023-12-22 15:43 | DRG 193 ==
LOC: 4 WEST ACU 17:08
PROVIDERS: Physician Assistant Medical; ADMITTING PHYSICIAN Internal Medicine; ATTENDING PHYSICIAN Family Medicine; CONSULT PHYSICIAN Internal Medicine Cardiovascular Disease; CONSULT PHYSICIAN Internal Medicine Critical Care Medicine; EMERGENCY PHYSICIAN Emergency Medicine; FAMILY PHYSICIAN Internal Medicine
DX: J15.9 Unspecified bacterial pneumonia (principal); I50.31 Acute diastolic (congestive) heart failure; J96.01 Acute respiratory failure with hypoxia; K52.1 Toxic gastroenteritis and colitis; E44.0 Moderate protein-calorie malnutrition; E87.1 Hypo-osmolality and hyponatremia; C91.10 Chronic lymphocytic leukemia of B-cell type not having achieved remission; E85.4 Organ-limited amyloidosis; I43 Cardiomyopathy in diseases classified elsewhere; T36.95XA Adverse effect of unspecified systemic antibiotic, initial encounter; I11.0 Hypertensive heart disease with heart failure; L89.152 Pressure ulcer of sacral region, stage 2; I48.0 Paroxysmal atrial fibrillation; I25.10 Atherosclerotic heart disease of native coronary artery without angina pectoris; I95.89 Other hypotension; Z79.01 Long term (current) use of anticoagulants; Z85.118 Personal history of other malignant neoplasm of bronchus and lung
CPT/HCPCS: 71045; 71046; 74018; 74230; 80048; 80053; 82962; 83605; 83735; 83880; 85025; 85027; 87040; 87070; 87147; 87205; 87324; 87449; 87811; 92526; 92610; 92611; 93005; 94640; 94669; 96365; 96375; 97110; 97116; 97163; 97166; 97530; 97535; 99285

== ENCOUNTER → 2024-02-16 10:08 | Outpatient (REF) | payer MEDICARE, OTHER, SELFPAY ==
[2024-02-16 15:46] LABS: ALT (SGPT) 20 U/L (0-50); AST (SGOT) 28 U/L (17-59); Albumin 3.8 g/dl (3.5-5.0); Alkaline Phosphatase 81 U/L (38-126); Blood Urea Nitrogen 36 mg/dl (9-20); Calcium 9.7 mg/dl (8.4-10.2); Carbon Dioxide 30 mmol/L (22-30); Chloride 109 mmol/L (98-107); Glucose 100 mg/dl (70-99); Potassium 4.3 mmol/L (3.5-5.1); Sodium 146 mmol/L (135-145); Total Bilirubin 1.1 mg/dl (0.2-1.3); Total Protein 5.8 g/dl (6.3-8.2); eGFR 58.53
[2024-02-16 16:00] LABS: Hematocrit 43.7 % (39.0-52.0); Hemoglobin 13.1 g/dL (13.0-18.0); Mean Corpuscular Hgb 28.3 pg (27.0-31.0); Mean Corpuscular Volume 94.4 fL (80.0-94.0); Mean Platelet Volume 11.6 fL (7.4-10.4); Platelet Count 216 10^3/uL (130-400); Red Blood Cell Count 4.63 10^6/uL (4.70-6.10); Red Cell Dist. Width 19.3 % (11.5-14.5); White Blood Cell Count 15.2 10^3/uL (4.8-10.8)
[2024-02-16 16:33] LABS: % Basophils 0.2 % (0-2); % Immature Granulocytes 1.4 % (0-0.5); % Lymphocytes 50.5 % (20.5-51.1); % Monocytes 5.8 % (1.7-9.3); % Neutrophils 42.1 % (42.2-75.2); Absolute Immature Granulocytes 0.2 10^3/uL (0-0.05); Absolute Lymphocytes 7.7 10^3/uL (1.2-3.4); Absolute Monocytes 0.9 10^3/uL (0.1-0.6); Absolute Neutrophils 6.4 10^3/uL (1.4-6.5); Nucleated Red Blood Cells % 0.1 % (-)
== END ==
LOC: HWRCS 10:08
PROVIDERS: ATTENDING PHYSICIAN Internal Medicine Cardiovascular Disease; FAMILY PHYSICIAN Family Medicine
DX: I50.32 Chronic diastolic (congestive) heart failure (principal); I48.0 Paroxysmal atrial fibrillation; I44.2 Atrioventricular block, complete
CPT/HCPCS: 36415; 80053; 85025; 93306

== ENCOUNTER 2024-03-08 06:03 | Day surgery (SDC) | payer MEDICARE, OTHER, SELFPAY ==
[2024-03-08] VITALS (10 sets, daily range): BP systolic 96–118; BP diastolic 66–84; BMI 22.1
--- NOTE | 2024-03-08 09:13 | ITS.CL.PACE ---
Nurse Ob - Pacemaker Implant
Pacemaker Implant
Procedure Report:
Date of Procedure: March 08, 2024.
Procedures: Dual chamber pacemaker generator change. Pacemaker pulse generator explantation and pacemaker pulse generator implantation.
Indication: Pacemaker at [facility] from natural battery depletion. 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
Performing physician: Travis Mcdonnell MD, [facility].
Implant: Pacemaker Pulse Generator: [employer]; Model# L331; Serial# [id number].
Explanted Pacemaker Pulse Generator (Implanted 03/08/2016): [employer]; Model# L311; Serial# [id number].
Retained Leads (Implanted 03/08/2016):
RA: [employer]: Model# 7741; Serial# [id number].
RV: [employer]; Model# 7742; Serial# [id number].
Technique: A time out was performed. The procedure site was identified. The patient was anesthetized by the anesthesia service. Preoperative cefazolin was administered prior to skin incision. The patient was prepped and draped in the usual fashion.
Local anesthetic was applied to the left prepectoral subcutaneous tissue. A 3 inch incision was made over the pulse generator. The capsule was entered with Bovie cautery. The old pacemaker pulse generator was explanted. No Bovie cautery was applied
to the lead system. The leads were appropriately attached to the new device. The pocket revised and was irrigated with antibiotic solution. Hemostasis was excellent. The device and leads were placed in the pocket. A [employer]onic, Tyrx, absorbable
antibiotic envelop was used (Ref [id number]; Lot [id number]). The incision was closed in three layers with absorbable suture. Steri-strips and an silver impregnated dressing and a prophylactic pressure were applied. The estimated blood loss was 1 mL.
There were no complications. No fluoroscopy. No IV contrast.
Lead Analysis:
RA lead:Afib: 0.7 mV; Threshold: N/A; Impedance: 579 ohms.
RV lead: R: N/A; Threshold: 0.9 V @ 0.4 ms; Impedance: 653 ohms.
Final Programming: DDDR 60 - 1110 bpm.
Conclusion: Uncomplicated [employer] dual chamber pacemaker change. The pacemaker system is MRI conditional. The patient is pacemaker dependent.
Recommendation: Routine post pacemaker care.
cc: Ochoa Serrano MD.
== END 2024-03-08 10:15 | disposition home or self-care (01) ==
LOC: CATH 06:03
PROVIDERS: ATTENDING PHYSICIAN Internal Medicine Cardiovascular Disease; FAMILY PHYSICIAN Family Medicine
DX: Z45.010 Encounter for checking and testing of cardiac pacemaker pulse generator [battery] (principal); I44.2 Atrioventricular block, complete; R00.1 Bradycardia, unspecified; I25.10 Atherosclerotic heart disease of native coronary artery without angina pectoris; I48.0 Paroxysmal atrial fibrillation; E85.4 Organ-limited amyloidosis; I43 Cardiomyopathy in diseases classified elsewhere; I10 Essential (primary) hypertension; J44.9 Chronic obstructive pulmonary disease, unspecified; Z87.01 Personal history of pneumonia (recurrent); Z79.899 Other long term (current) drug therapy
CPT/HCPCS: 33228; C1785